=== PATIENT | female | born 1995 ===

== ENCOUNTER 2020-08-10 16:12 | Outpatient (REF) | payer OTHER, SELFPAY ==
[2020-08-10 17:29] LABS: HCG Quantitative 8 mIU/mL
== END 2020-08-10 16:13 | disposition home or self-care (01) ==
LOC: HO.LAB 16:12
PROVIDERS: PCP Physician Assistant; Visit Provider Physician Assistant
DX: N92.1 Excessive and frequent menstruation with irregular cycle (principal)
CPT/HCPCS: 84702

== ENCOUNTER 2020-10-31 08:21 | Outpatient (REF) | payer OTHER, SELFPAY ==
[2020-10-31 09:10] LABS: Glucose Urine UA NEG (NEG); Leukocyte Esterase Urine TRACE (NEG); Nitrite Urine NEG (NEG); PH 5.5 (5.0-8.0); UACC Culture Trigger YES; Urine Blood TRACE (NEG); Urine Ketones NEG (NEG); Urine Protein NEG (NEG-TRACE)
[2020-10-31 09:11] LABS: Appearance Urine CLEAR; Color Urine YELLOW; Hematocrit 38.6 % (37-47); Mean Corpuscular HGB Conc 33.7 g/dl (31.0-35.0); Mean Corpuscular Hemoglobin 30.2 pg (27.0-33.0); Mean Corpuscular Volume 89.6 fL (80-98); Mean Platelet Volume 10.8 fL (9.4-12.3); Platelet Count 277 X10*3/uL (160-400); Red Blood Count 4.31 X10*6/uL (4.20-5.50); Red Cell Distribution Width 12.5 % (11.0-16.0); White Blood Count 6.3 X10*3/uL (4.8-10.8)
[2020-10-31 09:14] LABS: Estimated Average Glucose 97 mg/dL
[2020-10-31 09:26] LABS: INTERNATIONAL NORM RATIO 1.2 (0.9-1.1); Prothrombin Time 13.9 SEC (10.8-13.0)
[2020-10-31 09:29] LABS: Bacteria Urine TRACE /LPF; RBC Urine 0-2 /HPF (0); Squamous Epithelial Cell Urine 1+ /LPF
[2020-10-31 09:34] LABS: Alanine Aminotransferase 15 U/L (0-31); Albumin Level 4.4 g/dL (3.5-5.0); Alkaline Phosphatase 46 U/L (39-117); Anion Gap 13 (12-20); Aspartate Amino Transferase 16 U/L (5-31); Bilirubin Total 0.7 mg/dL (0.0-1.0); Blood Urea Nitrogen 12 mg/dL (9-16); Calcium 9.2 mg/dL (8.4-10.2); Carbon Dioxide 22 mmol/L (22-29); Chloride 107 mmol/L (96-108); Estimated Glomerular Filt Rate > 60; Glucose Fasting 86 mg/dL (60-99); Potassium 4.3 mmol/L (3.3-5.1); Sodium 138 mmol/L (135-145); Total Protein 7.5 g/dL (6.5-8.0)
[2020-10-31 09:54] LABS: HCG Quantitative < 2 mIU/mL; TSH reflex Free T4 1.52 uIU/mL (0.32-4.0)
[2020-10-31 09:56] LABS: HBsAGNum1 0.27 S/CO (0.00-0.99); Hepatitis B Surface Antigen Negative (Negative); ~Hepatitis B Surface Antibody NONREACTIVE (Nonreactive)
[2020-10-31 10:07] LABS: HBc Num1 0.06 S/CO (0.00-0.79); Hepatitis B Core Antibody Nonreactive (Nonreactive); ~HepC Num1 0.13 S/CO (0.00-0.79); ~Hepatitis C Antibody Nonreactive (Nonreactive)
== END 2020-10-31 08:22 | disposition home or self-care (01) ==
LOC: HO.LAB 08:21
PROVIDERS: PCP Physician Assistant; Visit Provider Physician Assistant
DX: Z01.818 Encounter for other preprocedural examination (principal); R17 Unspecified jaundice; I10 Essential (primary) hypertension; R30.0 Dysuria; Z11.3 Encounter for screening for infections with a predominantly sexual mode of transmission; Z13.1 Encounter for screening for diabetes mellitus; Z13.29 Encounter for screening for other suspected endocrine disorder
CPT/HCPCS: 36415; 80053; 81001; 81003; 83036; 84443; 84702; 85027; 85610; 86704; 86706; 86803; 87086; 87147; 87340

== ENCOUNTER 2021-01-03 16:25 | Outpatient (REF) | payer OTHER, SELFPAY ==
--- NOTE | ~2021-01-03 | XR_ITS ---
EXAMINATION: XR CERVICAL SPINE CLINICAL INFORMATION: Cervicalgia COMPARISON: None TECHNIQUE: 3 views of the cervical spine were obtained. FINDINGS: There are no prevertebral soft tissue or bony abnormalities demonstrated. No compression fractures or subluxations are identified. Alignment is maintained at the atlanto-axial articulation. Straightening of the normal cervical lordosis. The disc spaces are preserved. No endplate changes are seen. The prevertebral soft tissues are normal. The lung apices are clear. XR/XR cervical spine 2V IMPRESSION: Straightening of the normal cervical lordosis which can be seen in the setting of muscle spasm. Otherwise unremarkable appearance of the cervical spine.
[2021-01-03 16:54] LABS: MANUAL DIFF FLAG NO
[2021-01-03 17:07] LABS: Basophils Percent Auto 0.1 % (0-2); Eosinophils Absolute Auto 0.1 X10*3/uL (0.0-0.4); Eosinophils Percent Auto 1.3 % (0-4); Hemoglobin 11.6 g/dl (12.0-16.0); Imm Gran Abs Auto 0.02 X10*3/uL (0.00-0.03); Imm Gran Pct Auto 0.3 % (0.0-0.4); Lymphocytes Absolute Auto 2.6 X10*3/uL (1.2-4.9); Lymphocytes Percent Auto 38.1 % (20-40); Mean Corpuscular HGB Conc 32.2 g/dl (31.0-35.0); Mean Corpuscular Hemoglobin 29.5 pg (27.0-33.0); Mean Corpuscular Volume 91.6 fL (80-98); Mean Platelet Volume 10.7 fL (9.4-12.3); Monocytes Absolute Auto 0.4 X10*3/uL (0.1-1.2); Monocytes Percent Auto 6.1 % (2-11); Neutrophils Absolute Auto 3.7 X10*3/uL (2.0-8.3); Neutrophils Percent Auto 54.1 % (45-73); Platelet Count 261 X10*3/uL (160-400); Red Blood Count 3.93 X10*6/uL (4.20-5.50); Red Cell Distribution Width 12.2 % (11.0-16.0); White Blood Count 6.9 X10*3/uL (4.8-10.8)
[2021-01-03 18:31] LABS: Anion Gap 10 (12-20); Blood Urea Nitrogen 10 mg/dL (9-16); Calcium 8.7 mg/dL (8.4-10.2); Carbon Dioxide 25 mmol/L (22-29); Chloride 107 mmol/L (96-108); Estimated Glomerular Filt Rate > 60; Glucose Random 96 mg/dL (60-115); Sodium 138 mmol/L (135-145)
== END 2021-01-03 16:26 | disposition home or self-care (01) ==
LOC: HO.XRAY 16:25
PROVIDERS: PCP Physician Assistant; Visit Provider Internal Medicine
DX: Z00.00 Encounter for general adult medical examination without abnormal findings (principal); R51.9 Headache, unspecified; M54.2 Cervicalgia
CPT/HCPCS: 36415; 72040; 80048; 85025

== ENCOUNTER 2021-01-30 | Outpatient (REF) | payer OTHER, SELFPAY | END 2021-01-30 00:01 | disposition home or self-care (01) | LOC: HO.LNP | PROVIDERS: Visit Provider Nurse Practitioner Family | DX: R30.0 Dysuria (principal) | CPT/HCPCS: 87086; 87147 ==

== ENCOUNTER 2021-03-02 11:08 | Outpatient (REF) | payer OTHER, SELFPAY ==
--- NOTE | 2021-03-02 11:13 | ECG_ITS ---
Test Reason : Z01.818 Blood Pressure : / mmHG Vent. Rate : 085 BPM Atrial Rate : 085 BPM P-R Int : 158 ms QRS Dur : 078 ms QT Int : 360 ms P-R-T Axes : 056 077 052 degrees QTc Int : 428 ms Normal sinus rhythm Normal ECG When compared with ECG of 13-OCT-2017 13:53, No significant change was found Referred By: Sotero Nesbitt Electronically Signed By:Kaushal Mott
[2021-03-02 12:41] LABS: MANUAL DIFF FLAG NO
[2021-03-02 12:58] LABS: Basophils Percent Auto 0.2 % (0-2); Eosinophils Absolute Auto 0.1 X10*3/uL (0.0-0.4); Eosinophils Percent Auto 1.4 % (0-4); Hematocrit 36.7 % (37-47); Hemoglobin 12.1 g/dl (12.0-16.0); Imm Gran Abs Auto 0.01 X10*3/uL (0.00-0.03); Imm Gran Pct Auto 0.2 % (0.0-0.4); Lymphocytes Absolute Auto 2.4 X10*3/uL (1.2-4.9); Lymphocytes Percent Auto 37.8 % (20-40); Mean Corpuscular Volume 91.1 fL (80-98); Monocytes Absolute Auto 0.4 X10*3/uL (0.1-1.2); Monocytes Percent Auto 6.1 % (2-11); Neutrophils Absolute Auto 3.5 X10*3/uL (2.0-8.3); Neutrophils Percent Auto 54.3 % (45-73); Platelet Count 280 X10*3/uL (160-400); Red Blood Count 4.03 X10*6/uL (4.20-5.50); Red Cell Distribution Width 12.2 % (11.0-16.0); White Blood Count 6.4 X10*3/uL (4.8-10.8)
[2021-03-02 13:12] LABS: Alanine Aminotransferase 12 U/L (0-31); Albumin Level 4.3 g/dL (3.5-5.0); Alkaline Phosphatase 51 U/L (39-117); Anion Gap 11 (12-20); Aspartate Amino Transferase 12 U/L (5-31); Bilirubin Total 0.5 mg/dL (0.0-1.0); Blood Urea Nitrogen 10 mg/dL (9-16); Calcium 9.5 mg/dL (8.4-10.2); Carbon Dioxide 25 mmol/L (22-29); Chloride 106 mmol/L (96-108); Estimated Glomerular Filt Rate > 60; Glucose Random 73 mg/dL (60-115); Potassium 4.4 mmol/L (3.3-5.1); Sodium 138 mmol/L (135-145); Total Protein 7.4 g/dL (6.5-8.0)
[2021-03-02 13:17] LABS: INTERNATIONAL NORM RATIO 1.1 (0.9-1.1); Prothrombin Time 13.5 SEC (10.8-13.0)
[2021-03-02 13:20] LABS: HCG Quantitative < 2 mIU/mL
[2021-03-05 08:29] LABS: HIV AB/AG Nonreactive (Nonreactive); HIV Num 1 0.07 S/CO (0.00-0.99)
== END 2021-03-02 11:09 | disposition home or self-care (01) ==
LOC: HO.LAB 11:08
PROVIDERS: PCP Physician Assistant; Visit Provider Physician Assistant
DX: Z01.818 Encounter for other preprocedural examination (principal); Z20.822 Contact with and (suspected) exposure to COVID-19; Z11.4 Encounter for screening for human immunodeficiency virus [HIV]
CPT/HCPCS: 80053; 84702; 85025; 85610; 87389; 93005; U0003; U0005

== ENCOUNTER 2021-03-12 08:53 | Outpatient (REF) | payer OTHER, SELFPAY ==
[2021-03-12 09:50] LABS: Hematocrit 36.9 % (37-47); Hemoglobin 12.2 g/dl (12.0-16.0); Mean Corpuscular HGB Conc 33.1 g/dl (31.0-35.0); Mean Corpuscular Volume 90.7 fL (80-98); Mean Platelet Volume 10.7 fL (9.4-12.3); Platelet Count 311 X10*3/uL (160-400); Red Blood Count 4.07 X10*6/uL (4.20-5.50); Red Cell Distribution Width 12.1 % (11.0-16.0); White Blood Count 6.4 X10*3/uL (4.8-10.8)
[2021-03-12 09:59] LABS: Partial Thromboplastin Time 40.1 SEC (24.1-38.0)
== END 2021-03-12 08:54 | disposition home or self-care (01) ==
LOC: HO.LAB 08:53
PROVIDERS: PCP Physician Assistant; Visit Provider Physician Assistant
DX: Z01.818 Encounter for other preprocedural examination (principal); D64.9 Anemia, unspecified
CPT/HCPCS: 36415; 85027; 85730

== ENCOUNTER 2021-04-12 19:50 | Emergency (ER) | payer OTHER, SELFPAY ==
[2021-04-12 20:10] VITALS: BP 116/62; PULSE 99; RESP 16; TEMP 37; O2SAT 99; BMI 29.5
--- NOTE | 2021-04-12 21:58 | ED.WOUNDLAC ---
HPI - Wound/Laceration General Chief Complaint: Wound/Laceration Stated Complaint: Wound check Time Seen by Provider: 04/12/21 20:57 Source: patient Mode of arrival: ambulatory Limitations: no limitations History of Present Illness HPI narrative: Patient is status post BBL 2 weeks ago complaining of slight redness at the umbilicus area since yesterday no fever no pus discharge slight painful with serous discharge Related Data Previous Rx's Medication Instructions Recorded vyocjioexx-hvjpvsssfvicp-ymypkpou 1 cap PO Q8H PRN 5 Days #15 cap 08/10/20 50 mg-300 mg-40 mg capsule hydroxyzine HCl 10 mg tablet 10 mg PO BID PRN 7 Days #14 tab 11/07/20 nitrofurantoin macrocrystal 100 mg 100 mg PO BID 7 Days #14 cap 01/30/21 capsule meloxicam 15 mg tablet 15 mg PO DAILY #30 tab 02/13/21 doxycycline hyclate 100 mg PO BID #20 cap 04/12/21 Allergies Allergy/AdvReac Type Severity Reaction Status Date / Time No Known Allergies Allergy Verified 03/06/21 09:24 Review of Systems Review of Systems: Yes all other systems are reviewed and are negative [facility] Past Medical History Surgical History H/O breast augmentation History of appendectomy Hx of knee surgery Status post excision of lipoma Family History Family History Father No problems noted. Mother No problems noted. Maternal Grandmother Diabetes Maternal Grandfather No problems noted. Paternal Grandmother Diabetes Hypertension Stroke Paternal Grandfather No problems noted. Social History Social History Alcohol intake: former Patient Tobacco Use Status: Never used Tobacco Second Hand Smoke Exposure: No Use of substances other than those prescribed or required for medical reasons: No Advance Directives: No Patient : No Physical Exam Vital Signs: Vital Signs: Last Vital Signs Temp 98.6 F 04/12/21 20:10 Pulse 99 04/12/21 20:10 Resp 16 04/12/21 20:10 BP 116/62 04/12/21 20:10 Pulse Ox 99 04/12/21 20:10 Body Mass Index 29.5 Const: General: healthy appearing and comfortable Orientation/consciousness: patient oriented x3 Resp: Effort & Inspection: normal respiratory effort Auscultation: clear to auscultation bilaterally Cardio: Palpation: normal PMI Rate: regular rate Rhythm: regular rhythm Heart sounds: S1 normal heart sound present and S2 normal heart sound present Skin: Full body images: 1. Slight redness mild tenderness at the umbilicus area the site of surgery no pus discharge slight serous discharge Neuro: General: patient oriented x3 Discharge Plan Discharge Clinical Impression: Cellulitis Qualifiers: Site of cellulitis: trunk Site of cellulitis of trunk: umbilicus Qualified Code(s): L03.316 - Cellulitis of umbilicus Patient Disposition: Home, Self-Care Instructions: Cellulitis (ED) Additional Instructions: Take antibiotic as advised. Local care as advised. Report to PCP/ED if worsening of the redness or swelling Prescriptions: New doxycycline hyclate 100 mg capsule 100 mg PO BID Qty: 20 RF: 0 No Action meloxicam 15 mg tablet 15 mg PO DAILY Qty: 30 RF: 0 nitrofurantoin macrocrystal 100 mg capsule 100 mg PO BID 7 Days Qty: 14 RF: 0 nqeztugwco-tihrrxmzqqvyr-mulw [Fioricet] 50-300-40 mg capsule 1 cap PO Q8H PRN (Reason: pain) 5 Days Qty: 15 RF: 0 hydroxyzine HCl 10 mg tablet 10 mg PO BID PRN (Reason: nausea and vomiting) 7 Days Qty: 14 RF: 0 Interventions: ED Discharge Assessment Last Done: 04/12/21 22:10 Discharge Date/Time: 04/12/21 22:12
== END 2021-04-12 22:12 | disposition home or self-care (01) ==
PROVIDERS: Emergency Provider Internal Medicine; PCP Physician Assistant
DX: L03.316 Cellulitis of umbilicus (principal)
CPT/HCPCS: 99283; 99284

== ENCOUNTER 2021-06-04 19:34 | Emergency (ER) | payer OTHER, SELFPAY ==
[2021-06-04 19:46] VITALS: BP 100/61; PULSE 87; RESP 16; TEMP 36.1; O2SAT 100; BMI 23.0
[2021-06-04 20:05] LABS: Glucose Urine UA NEG (NEG); Leukocyte Esterase Urine NEG (NEG); Nitrite Urine NEG (NEG); PH 7.5 (5.0-8.0); Specific Gravity - Urine 1.015 (1.005-1.025); Urine Blood NEG (NEG); Urine Ketones NEG (NEG); Urine Protein NEG (NEG-TRACE)
[2021-06-04 20:06] LABS: Color Urine YELLOW
[2021-06-04 20:07] LABS: Appearance Urine CLEAR; UPreg QC Valid YES; Urine Pregnancy POSITIVE (NEGATIVE)
[2021-06-04 22:47] VITALS: BP 91/52; PULSE 84; RESP 20; TEMP 36.8; O2SAT 100
--- NOTE | 2021-06-04 23:38 | ED.FEMALEGU ---
HPI - Female Genitourinary General Chief complaint: Urogenital-Female Stated complaint: uti? Time Seen by Provider: 06/04/21 22:00 Source: patient Mode of arrival: ambulatory Limitations: no limitations History of Present Illness HPI Narrative: Patient comes emergency room complaining of dysuria for 5 days, redness and swelling to the labia, dysuria, dyspareunia. Patient states that she is not concerned about having an STD. Patient states that her menstrual period is 1 week late Related Data Previous Rx's Medication Instructions Recorded zfvtdyomgz-gqzxwozzadjhp-fgulqmew 1 cap PO Q8H PRN 5 Days #15 cap 08/10/20 50 mg-300 mg-40 mg capsule (Fioricet) hydroxyzine HCl 10 mg tablet 10 mg PO BID PRN 7 Days #14 tab 11/07/20 nitrofurantoin macrocrystal 100 mg 100 mg PO BID 7 Days #14 cap 01/30/21 capsule meloxicam 15 mg tablet 15 mg PO DAILY #30 tab 02/13/21 doxycycline hyclate 100 mg capsule 100 mg PO BID #20 cap 04/12/21 vitamin no.115-iron 29 1 tab PO DAILY #30 tab 06/04/21 mg-folic acid 1 mg chewable tablet ( 19) Allergies Allergy/AdvReac Type Severity Reaction Status Date / Time No Known Allergies Allergy Verified 06/04/21 19:51 Review of Systems Review of Systems: Constitutional : No Weight loss, No Fever, No Chills, No Night Sweats, No Fatigue, No Malaise ENT/Mouth : No Hearing loss, No Ear Pain, No Nasal Congestion, No Sinus Pain, No Hoarseness, No sore throat, No Rhinorrhea, No Swallowing Difficulty Eyes: No Eye Pain, No Swelling, No Redness, No Foreign Body, No Discharge, No Vision Changes Cardiovascular : No Chest Pain, No SOB, No Dyspnea on Exertion, No Orthopnea, No Edema, No Palpitations Respiratory : No Cough, No Sputum, No Wheezing, No Smoke Exposure, No Dyspnea Gastrointestinal : No Nausea, No Vomiting, No Diarrhea, No Constipation, No abdominal Pain, No Hematochezia, No Melena Genitourinary : no irregular bleeding, No Dysuria, No Urinary Frequency, No Hematuria, No Urinary Incontinence, No Urgency, No Flank Pain, No Urinary Flow Changes, No Hesitancy Musculoskeletal : No joint pain, No Myalgias, No Joint Swelling Skin : No Skin Lesions, No rash Neuro : No Weakness, No Numbness, No Paresthesias, No Loss of Consciousness, No Dizziness, No Headache Psych : No Anxiety/Panic, No Depression, No SI/HI/AH/VH, No Social Issues, Heme/Lymph: No Bruising, No Bleeding,No Lymphadenopathy Endocrine : No Polyuria, No Polydipsia, No Temperature Intolerance [facility] Past Medical History Surgical History H/O breast augmentation History of appendectomy Hx of knee surgery Status post excision of lipoma Family History Family History Father No problems noted. Mother No problems noted. Maternal Grandmother Diabetes Maternal Grandfather No problems noted. Paternal Grandmother Diabetes Hypertension Stroke Paternal Grandfather No problems noted. Social History Social History Alcohol intake: former Patient Tobacco Use Status: Never used Tobacco Second Hand Smoke Exposure: No Advance Directives: No Advance Directives Information Provided: No Physical Exam Vital Signs: Vital Signs: Last Vital Signs Temp 98.2 F 06/04/21 22:47 Pulse 84 06/04/21 22:47 Resp 20 06/04/21 22:47 BP 91/52 L 06/04/21 22:47 Pulse Ox 100 06/04/21 22:47 Body Mass Index 23.0 Const: Other: Appearance: Alert. Oriented X3. No acute distress. Eyes: Pupils equal, round and reactive to light. ENT: Pharynx normal. Neck: Normal inspection. Neck supple. No lymph nodes noted. No crepitus CVS: Normal heart rate and rhythm. Pulses normal. Normal S1 and S2 Respiratory: No respiratory distress. Breath sounds normal. No Wheezing. No rales Abdomen: Soft and nontender. No rigidity. No distention. : Normal genitalia, cervix closed, no discharge Skin: Skin warm and dry. Normal skin color. Normal skin turgor. Extremities: No lower extremity edema. No lower extremity edema. No Lacerations. No Rash Neuro: Oriented X 3. No motor deficit. No sensory deficit. Moving all extermities. No slurred speech. Course Course Course Narrative: I discussed the physical exam with the patient, no clear reason why the patient may have dysuria/dyspareunia. Cultures were obtained. I discussed with the patient and her that the urine test is positive for . He will follow-up with their OBGYN at [facility] - Female Genitourinary Lab Data Labs: Lab Results 06/04/21 06/04/21 Range/Units 19:57 19:57 Urine Color YELLOW Urine Appearance CLEAR Urine pH 7.5 (5.0-8.0) Ur Specific [place] 1.015 (1.005-1.025) Urine Protein NEG (NEG-TRACE) MG/DL Urine Glucose (UA) NEG (NEG) MG/DL Urine Ketones NEG (NEG) MG/DL Urine Blood NEG (NEG) Urine Nitrite NEG (NEG) Ur Leukocyte Esterase NEG (NEG) Urine Test POSITIVE H (NEGATIVE) Discharge Plan Discharge Clinical Impression: Dysuria Qualifiers: Weeks of gestation: less than 8 weeks Qualified Code(s): Z3A.01 - Less than 8 weeks gestation of Patient Disposition: Home, Self-Care Instructions: Dysuria (ED) Additional Instructions: Please follow-up with your primary care physician tomorrow. If you have any worsening or new symptoms, please return to the emergency room or call 911 Prescriptions: New 19 29 mg iron- 1 mg tablet,chewable 1 tab PO DAILY Qty: 30 RF: 0 No Action meloxicam 15 mg tablet 15 mg PO DAILY Qty: 30 RF: 0 doxycycline hyclate 100 mg capsule 100 mg PO BID Qty: 20 RF: 0 nitrofurantoin macrocrystal 100 mg capsule 100 mg PO BID 7 Days Qty: 14 RF: 0 vqhgpnevbg-sdjqyvtybndrx-eqxb [Fioricet] 50-300-40 mg capsule 1 cap PO Q8H PRN (Reason: pain) 5 Days Qty: 15 RF: 0 hydroxyzine HCl 10 mg tablet 10 mg PO BID PRN (Reason: nausea and vomiting) 7 Days Qty: 14 RF: 0
[2021-06-05 05:30] LABS: CT PCR NOT DETECTED (Not Detect.); NG PCR NOT DETECTED (Not Detect.)
[2021-06-06 09:42] LABS: BV Int Neg Control Negative (Negative); BV Int Pos Control Positive (Positive)
== END 2021-06-05 00:13 | disposition home or self-care (01) ==
PROVIDERS: Emergency Provider Emergency Medicine; PCP Physician Assistant
DX: R30.0 Dysuria (principal); Z33.1 Pregnant state, incidental
CPT/HCPCS: 81003; 81025; 87480; 87491; 87510; 87591; 87660; 99283; 99284

== ENCOUNTER 2021-06-18 14:25 | Emergency (ER) | payer OTHER, SELFPAY | END 2021-06-18 17:13 | disposition left against medical advice (07) | PROVIDERS: Emergency Provider Emergency Medicine Emergency Medical Services; PCP Physician Assistant | DX: O26.91 Pregnancy related conditions, unspecified, first trimester (principal); Z3A.01 Less than 8 weeks gestation of pregnancy ==

== ENCOUNTER 2021-06-26 00:05 | Emergency (ER) | payer OTHER, SELFPAY ==
--- NOTE | ~2021-06-26 | US_ITS ---
EXAMINATION: US OBSTETRICAL ULTRASOUND CLINICAL INFORMATION: Vaginal bleeding. 7 weeks . COMPARISON: None. LMP: 05/02/2021. Gestational age by maternal dates is 7 weeks 6 days. Estimated date of delivery by maternal dates is 02/06/2022. TECHNIQUE: Transabdominal pelvic ultrasound performed. FINDINGS: There is a single intrauterine gestational sac with visible yolk sac, embryo/fetus, and cardiac activity. There is no significant subchorionic hemorrhage or hematoma. HR: 152 beats per minute. CRL (crown rump length): 1.04 cm (7 weeks 1 day +/- 4 days). ROBBIE (estimated date of delivery): 02/11/2022 +/- 4 days. MATERNAL ADNEXA: The right maternal ovary measures 3.6 x 2.3 x 2.6 cm. Corpus luteal cyst noted. The left maternal ovary measures 2.6 x 1.6 x 1.6 cm. There is no significant maternal adnexal mass. No maternal pelvic ascites. US/US OB <= 14 weeks fetus IMPRESSION: 1. Single intrauterine gestation with ultrasound gestational age of 7 weeks 1 day +/- 4 days. 2. Estimated date of delivery is 02/11/2022 +/- 4 days. 3. No maternal adnexal mass or pelvic ascites.
[2021-06-26 00:19] VITALS: BP 115/48; PULSE 75; RESP 16; TEMP 36.8; O2SAT 98; BMI 26.6
--- NOTE | 2021-06-26 00:42 | ED.FEMALEGU ---
HPI - Female Genitourinary General Chief complaint: Vaginal Bleeding Stated complaint: 7 weeks /Vag bleeding Time Seen by Provider: 06/26/21 00:37 Source: patient Mode of arrival: ambulatory Limitations: no limitations History of Present Illness HPI Narrative: Patient is 7 weeks 2 para 1 noticed spotting after intercourse bright red blood small amount with lower abdominal cramps Related Data Previous Rx's Medication Instructions Recorded vqzjmytagp-riegdvpyvaldx-cqlxoftc 1 cap PO Q8H PRN 5 Days #15 cap 08/10/20 50 mg-300 mg-40 mg capsule (Fioricet) hydroxyzine HCl 10 mg tablet 10 mg PO BID PRN 7 Days #14 tab 11/07/20 nitrofurantoin macrocrystal 100 mg 100 mg PO BID 7 Days #14 cap 01/30/21 capsule meloxicam 15 mg tablet 15 mg PO DAILY #30 tab 02/13/21 doxycycline hyclate 100 mg capsule 100 mg PO BID #20 cap 04/12/21 vitamin no.115-iron 29 1 tab PO DAILY #30 tab 06/04/21 mg-folic acid 1 mg chewable tablet ( 19) Allergies Allergy/AdvReac Type Severity Reaction Status Date / Time No Known Allergies Allergy Verified 06/04/21 19:51 Review of Systems Review of Systems: Yes all other systems are reviewed and are negative [facility] Past Medical History Surgical History H/O breast augmentation History of appendectomy Hx of knee surgery Status post excision of lipoma Family History Family History Father No problems noted. Mother No problems noted. Maternal Grandmother Diabetes Maternal Grandfather No problems noted. Paternal Grandmother Diabetes Hypertension Stroke Paternal Grandfather No problems noted. Social History Social History Alcohol intake: former Patient Tobacco Use Status: Never used Tobacco Second Hand Smoke Exposure: No Use of substances other than those prescribed or required for medical reasons: No Advance Directives: No Patient : Yes Physical Exam Vital Signs: Vital Signs: Last Vital Signs Temp 98.2 F 06/26/21 00:19 Pulse 75 06/26/21 00:19 Resp 16 06/26/21 00:19 BP 115/48 L 06/26/21 00:19 Pulse Ox 98 06/26/21 00:19 Body Mass Index 26.6 Appearance: Alert. Oriented X3. No acute distress. ENT: Pharynx normal. Oral Mucosa moist Neck: Normal inspection. Neck supple. CVS: Normal heart rate and rhythm. Pulses normal. Respiratory: No respiratory distress. Equal air entry bilateral, Abdomen: Soft and nontender. Bowel sounds are present, no mass palpable, no CVA tenderness Course Course Course Narrative: Healthy IUP 7 weeks 1 day with 152 heartbeats, discharge patient home [facility] - Female Genitourinary Lab Data Attestation: I reviewed the patient's lab results. Labs: Lab Results 06/26/21 Range/Units 01:09 Beta HCG, Quant 13162 mIU/mL Discharge Plan Discharge Clinical Impression: First-trimester bleeding Patient Disposition: Home, Self-Care Instructions: Subchorionic Hemorrhage (ED) Additional Instructions: Rest at home Report to the ER if increased amount of bleeding Your ultrasound showed normal 7 weeks 1 day Prescriptions: No Action meloxicam 15 mg tablet 15 mg PO DAILY Qty: 30 RF: 0 doxycycline hyclate 100 mg capsule 100 mg PO BID Qty: 20 RF: 0 19 29 mg iron- 1 mg tablet,chewable 1 tab PO DAILY Qty: 30 RF: 0 nitrofurantoin macrocrystal 100 mg capsule 100 mg PO BID 7 Days Qty: 14 RF: 0 aaibtndfya-ivpdgsrlkqlsk-yszf [Fioricet] 50-300-40 mg capsule 1 cap PO Q8H PRN (Reason: pain) 5 Days Qty: 15 RF: 0 hydroxyzine HCl 10 mg tablet 10 mg PO BID PRN (Reason: nausea and vomiting) 7 Days Qty: 14 RF: 0 Stand Alone Forms: Work/School Release Interventions: ED Discharge Assessment Last Done: 06/26/21 02:51 Discharge Date/Time: 06/26/21 02:52
--- NOTE | 2021-06-26 01:13 | PC.NURSE ---
pt was seen last week for abd pain. Today pt report have vaginal bleeding after sex. pt reports having small amount of blood. no heavy bleeding.
--- NOTE | 2021-06-26 01:30 | PC.NURSE ---
Pt report no significant amount of bleeding just strands of blood while voiding after having intercourse.
[2021-06-26 02:03] LABS: HCG Quantitative 46146 mIU/mL
== END 2021-06-26 02:52 | disposition home or self-care (01) ==
PROVIDERS: Emergency Provider Internal Medicine; PCP Physician Assistant
DX: O20.9 Hemorrhage in early pregnancy, unspecified (principal); Z3A.01 Less than 8 weeks gestation of pregnancy; Z79.899 Other long term (current) drug therapy
CPT/HCPCS: 36415; 76801; 84702; 99284

== ENCOUNTER 2022-11-03 15:55 | Emergency (ER) | payer OTHER, SELFPAY ==
--- NOTE | ~2022-11-03 | CT_ITS ---
EXAMINATION: CT ABDOMEN AND PELVIS WITHOUT CONTRAST CLINICAL INFORMATION: Left flank pain radiating to left lower quadrant COMPARISON: 11/10/2013 TECHNIQUE: Multidetector volumetric imaging was performed from the superior aspect of the liver through the pubic symphysis. Sagittal and coronal reformatted images were obtained on the technologist's workstation. This CT examination was performed using dose optimization techniques as appropriate, variously including the following: *Automated exposure control *Adjustment of mA and/or kV according to patient size (this includes techniques or standardized protocols for targeted exams where dose is matched to indication/reason for exam; i.e. extremities or head) *Use of iterative reconstruction technique DLP: 607 mGy-cm FINDINGS: LUNG BASES: The visualized lung bases are unremarkable. LIVER, GALLBLADDER, AND BILIARY TREE: The liver is normal in size, shape, and attenuation. No focal hepatic lesion or biliary ductal dilatation is present. The gallbladder is contracted with no evidence of radiopaque gallstones, gallbladder wall thickening, or obvious pericholecystic inflammatory changes. PANCREAS: Unremarkable. SPLEEN: Unremarkable. ADRENAL GLANDS: Unremarkable. KIDNEYS AND URETERS: Punctate 1 mm calculi are evident within calyces in the interpolar regions of the left kidney and right kidney. No larger calculi are identified. The kidneys are normal in size, shape, and attenuation. No hydronephrosis or hydroureter. No ureteral calculi. No perinephric stranding. BLADDER: Unremarkable. GASTROINTESTINAL TRACT: Stomach, small bowel, and colon are normal in caliber. No bowel wall thickening or surrounding inflammatory changes. No intraperitoneal free air. Surgical dimas are evident in the right lower quadrant, possibly due to prior appendectomy. The appendix is identified. There is a small amount of free fluid in the pelvis measures 10 Hounsfield units, likely physiologic. ABDOMINAL WALL: No significant hernia is appreciated. LYMPH NODES: Normal. VASCULAR: Unremarkable. PELVIC VISCERA: The uterus and adnexa are unremarkable. OSSEOUS STRUCTURES: No acute osseous findings. There is 9 fusion of the inferior articulating processes of L3 with the remainder of the articular pillars, corresponding a developmental variation. CT/CT abdomen pelvis wo IV con IMPRESSION: 1. No acute intra-abdominal or intrapelvic abnormalities. 2. Punctate 1 mm nonobstructing renal calculi. No evidence of obstructive uropathy. 3. Small amount of free fluid in the pelvis, likely physiologic. Fleischner guidelines were followed.
[2022-11-03 16:05] VITALS: BP 113/53; PULSE 86; RESP 18; TEMP 36.8; O2SAT 100; BMI 26.9
--- NOTE | 2022-11-03 16:05 | ED_ITS ---
HPI - Abdominal Pain General Chief Complaint: Urogenital-Female <MURALI Contreras - Last Filed: 11/03/22 16:09> Stated Complaint: passed kidney stone yesterday/ pain <MURALI Contreras - Last Filed: 11/03/22 16:09> Time Seen by Provider: 11/03/22 16:57 <MURALI Contreras - Last Filed: 11/03/22 16:09> Source: patient <Zhen Laureano MD - Last Filed: 11/03/22 18:44> Mode of arrival: ambulatory <Zhen Laureano MD - Last Filed: 11/03/22 18:44> Limitations: no limitations <Zhen Laureano MD - Last Filed: 11/03/22 18:44> History of Present Illness HPI narrative: Patient no history of kidney stone noticed pain in left flank areas since yesterday evening and noticed small amount of stone coming out from vagina while taking shower no nausea no vomiting no fever no chills patient also has dysuria no frequency no hematuria no history of kidney stones in the family patient never had similar pain in the past patient already had the labs done pr ior to my evaluation which showed normal CBC urine negative for blood showed trace leuko esterase no bacteria patient had CT scan of the abdomen prior to my evaluation also <Zhen Laureano MD - Last Filed: 11/03/22 18:44> Related Data Home Medications: Previous Rx's Medication Instructions Recorded vitamin no.115-iron 29 1 tab PO DAILY #30 tabs 06/04/21 mg-folic acid 1 mg chewable tablet ( 19) amoxicillin 500 mg tablet 500 mg PO BID 5 days #10 tabs 10/02/21 <MURALI Contreras - Last Filed: 11/03/22 16:09> Allergies/Adverse Reactions: Allergies Allergy/AdvReac Type Severity Reaction Status Date / Time No Known Allergies Allergy Verified 11/03/22 16:05 <MURALI Contreras - Last Filed: 11/03/22 16:09> Review of Systems Review of Systems Yes all other systems are reviewed and are negative <Zhen Laureano MD - Last Filed: 11/03/22 18:44> [facility] Past Medical History Surgical History: Surgical History H/O breast augmentation History of appendectomy Hx of knee surgery Status post excision of lipoma <MURALI Contreras - Last Filed: 11/03/22 16:09> Family History Family History: Family History Father No problems noted. Mother No problems noted. Maternal Grandmother Diabetes Maternal Grandfather No problems noted. Paternal Grandmother Diabetes Hypertension Stroke Paternal Grandfather No problems noted. <MURALI Contreras - Last Filed: 11/03/22 16:09> Social History Social History: Social History Alcohol intake: former Patient Tobacco Use Status: Never used Tobacco Second Hand Smoke Exposure: No Advance Directives: No Advance Directives Information Provided: No <MURALI Contreras - Last Filed: 11/03/22 16:09> Physical Exam ED Vital Signs: Vital Signs - 24 hr 11/03/22 16:05 Temperature 98.2 F Pulse Rate 86 Respiratory Rate 18 Blood Pressure 113/53 L Pulse Oximetry 100 Oxygen Delivery Method Room Air BMI result Body Mass Index 26.9 <MURALI Contreras - Last Filed: 11/03/22 16:09> Vital Signs - 24 hr 11/03/22 16:05 Temperature 98.2 F Pulse Rate 86 Respiratory Rate 18 Blood Pressure 113/53 L Pulse Oximetry 100 Oxygen Delivery Method Room Air BMI result Body Mass Index 26.9 <Zhen Laureano MD - Last Filed: 11/03/22 18:44> Appearance: Alert. Oriented X3. No acute distress. ENT: Pharynx normal. Oral Mucosa moist Neck: Normal inspection. Neck supple. CVS: Normal heart rate and rhythm. Pulses normal. Respiratory: No respiratory distress. Equal air entry bilateral, Abdomen: Soft and nontender. Bowel sounds are present, no mass palpable, mild left CVA tenderness Skin: Skin warm and dry. Normal skin color. Normal skin turgor. Extremities: No lower extremity edema. No calf tenderness Neuro: Oriented X 3. <Zhen Laureano MD - Last Filed: 11/03/22 18:44> Course Course Course Narrative: RME--27yo F w/no sig PMHx c/o L flank pain radiating to LLQ since yesterday w/assoc dysuria. Reports passed a rock while in the shower last night which worsened pain. Denies N/V, heamturia VSS, nontoxic appearing Labs, UA, , CTAP ordered in triage <MURALI Contreras - Last Filed: 11/03/22 16:09> Medical Decision Making Medical Decision Making MDM Narrative: Patient's CT scan negative for any obstructive uropathy UA negative di scharge patient home patient is comfortable without any significant pain <Debra Laureano MD - Last Filed: 11/03/22 18:44> Lab Data [facility] Lab Attestation statement: I reviewed the patient's lab results. <Zhen Laureano MD - Last Filed: 11/03/22 18:44> Result Diagrams: 11/03/22 16:41 11/03/22 16:41 <MURALI Contreras - Last Filed: 11/03/22 16:09> Labs: Lab Results 11/03/22 11/03/22 11/03/22 Range/Units 16:38 16:39 16:41 WBC 7.1 (4.8-10.8) X10*3/uL RBC 4.07 L (4.20-5.50) X10*6/uL Hgb 11.0 L (12.0-16.0) g/dl Hct 34.4 L (37.0-47.0) % MCV 84.5 (80.0-98.0) fL MCH 27.0 (27.0-33.0) pg MCHC 32.0 (31.0-35.0) g/dl RDW 15.9 (11.0-16.0) % Plt Count 303 (160-400) X10*3/uL MPV 10.9 (9.4-12.3) fL Immature Gran % (Auto) 0.3 (0.0-0.4) % Neut % (Auto) 52.7 (45-73) % Lymph % (Auto) 37.9 (20-40) % Branch % (Auto) 6.1 (2-11) % Eos % (Auto) 2.7 (0-4) % Baso % (Auto) 0.3 (0-2) % Lymph # (Auto) 2.7 (1.2-4.9) X10*3/uL Branch # (Auto) 0.4 (0.1-1.2) X10*3/uL Eos # (Auto) 0.2 (0.0-0.4) X10*3/uL Baso # (Auto) 0.0 (0.0-0.2) X10*3/uL Abs Immat Gran (auto) 0.02 (0.00-0.03) X10*3/uL Absolute Neuts (auto) 3.7 (2.0-8.3) x10*3/uL Absolute Nucleated RBC 0.000 (0.0-0.012) X10*3/uL Nucleated RBC % (auto) 0.0 (0.0-0.2) /100WBC Sodium (135-145) mmol/L Potassium (3.3-5.1) mmol/L Chloride (96-108) mmol/L Carbon Dioxide (22-29) mmol/L Anion Gap (12-20) BUN (9-16) mg/dL Creatinine (0.5-1.4) mg/dL Estim Creat Clear Calc Estimated GFR Random Glucose (60-115) mg/dL Calcium (8.4-10.2) mg/dL Magnesium (1.6-2.6) mg/dL Total Bilirubin (0.0-1.0) mg/dL Direct Bilirubin (0.0-0.5) mg/dL AST (5-31) U/L ALT (0-31) U/L Alkaline Phosphatase (39-117) U/L Total Protein (6.5-8.0) g/dL Albumin (3.5-5.0) g/dL Lipase (8-78) U/L Urine Color Yellow Urine Appearance Clear Urine pH 7.5 (5.0-9.0) Ur Specific [place] 1.025 (1.005-1.025) Urine Protein Negative (Neg-Trace) mg/dL Urine Glucose (UA) Negative (Negative) mg/dL Urine Ketones Negative (Negative) mg/dL Urine Blood Negative (Negative) Urine Nitrite Negative (Negative) Ur Leukocyte Esterase Small (1+) H (Negative) Urine RBC 0-2 (0-2) /HPF Urine WBC 0-5 (0-5) /HPF Ur Squamous Epith Cells 3-5 (0-2) /HPF Urine Bacteria Trace (None Seen) Hyaline Casts 0-2 (0-2) /LPF Urine Test NEGATIVE (NEGATIVE) 11/03/22 Range/Units 16:41 WBC (4.8-10.8) X10*3/uL RBC (4.20-5.50) X10*6/uL Hgb (12.0-16.0) g/dl Hct (37.0-47.0) % MCV (80.0-98.0) fL MCH (27.0-33.0) pg MCHC (31.0-35.0) g/dl RDW (11.0-16.0) % Plt Count (160-400) X10*3/uL MPV (9.4-12.3) fL Immature Gran % (Auto) (0.0-0.4) % Neut % (Auto) (45-73) % Lymph % (Auto) (20-40) % Branch % (Auto) (2-11) % Eos % (Auto) (0-4) % Baso % (Auto) (0-2) % Lymph # (Auto) (1.2-4.9) X10*3/uL Branch # (Auto) (0.1-1.2) X10*3/uL Eos # (Auto) (0.0-0.4) X10*3/uL Baso # (Auto) (0.0-0.2) X10*3/uL Abs Immat Gran (auto) (0.00-0.03) X10*3/uL Absolute Neuts (auto) (2.0-8.3) x10*3/uL Absolute Nucleated RBC (0.0-0.012) X10*3/uL Nucleated RBC % (auto) (0.0-0.2) /100WBC Sodium 139 (135-145) mmol/L Potassium 4.0 (3.3-5.1) mmol/L Chloride 109 H (96-108) mmol/L Carbon Dioxide 23 (22-29) mmol/L Anion Gap 11 L (12-20) BUN 15 (9-16) mg/dL Creatinine 0.63 (0.5-1.4) mg/dL Estim Creat Clear Calc 126.1 Estimated GFR > 60 Random Glucose 76 (60-115) mg/dL Calcium 8.8 D (8.4-10.2) mg/dL Magnesium 1.9 (1.6-2.6) mg/dL Total Bilirubin 0.3 (0.0-1.0) mg/dL Direct Bilirubin < 0.2 (0.0-0.5) mg/dL AST 12 (5-31) U/L ALT 11 (0-31) U/L Alkaline Phosphatase 55 (39-117) U/L Total Protein 7.0 (6.5-8.0) g/dL Albumin 4.1 (3.5-5.0) g/dL Lipase 23 (8-78) U/L Urine Color Urine Appearance Urine pH (5.0-9.0) Ur Specific [place] (1.005-1.025) Urine Protein (Neg-Trace) mg/dL Urine Glucose (UA) (Negative) mg/dL Urine Ketones (Negative) mg/dL Urine Blood (Negative) Urine Nitrite (Negative) Ur Leukocyte Esterase (Negative) Urine RBC (0-2) /HPF Urine WBC (0-5) /HPF Ur Squamous Epith Cells (0-2) /HPF Urine Bacteria (None Seen) Hyaline Casts (0-2) /LPF Urine Test (NEGATIVE) <MURALI Contreras - Last Filed: 11/03/22 16:09> Lab Results 11/03/22 11/03/22 11/03/22 Range/Units 16:38 16:39 16:41 WBC 7.1 (4.8-10.8) X10*3/uL RBC 4.07 L (4.20-5.50) X10*6/uL Hgb 11.0 L (12.0-16.0) g/dl Hct 34.4 L (37.0-47.0) % MCV 84.5 (80.0-98.0) fL MCH 27.0 (27.0-33.0) pg MCHC 32.0 (31.0-35.0) g/dl RDW 15.9 (11.0-16.0) % Plt Count 303 (160-400) X10*3/uL MPV 10.9 (9.4-12.3) fL Immature Gran % (Auto) 0.3 (0.0-0.4) % Neut % (Auto) 52.7 (45-73) % Lymph % (Auto) 37.9 (20-40) % Branch % (Auto) 6.1 (2-11) % Eos % (Auto) 2.7 (0-4) % Baso % (Auto) 0.3 (0-2) % Lymph # (Auto) 2.7 (1.2-4.9) X10*3/uL Branch # (Auto) 0.4 (0.1-1.2) X10*3/uL Eos # (Auto) 0.2 (0.0-0.4) X10*3/uL Baso # (Auto) 0.0 (0.0-0.2) X10*3/uL Abs Immat Gran (auto) 0.02 (0.00-0.03) X10*3/uL Absolute Neuts (auto) 3.7 (2.0-8.3) x10*3/uL Absolute Nucleated RBC 0.000 (0.0-0.012) X10*3/uL Nucleated RBC % (auto) 0.0 (0.0-0.2) /100WBC Sodium (135-145) mmol/L Potassium (3.3-5.1) mmol/L Chloride (96-108) mmol/L Carbon Dioxide (22-29) mmol/L Anion Gap (12-20) BUN (9-16) mg/dL Creatinine (0.5-1.4) mg/dL Estim Creat Clear Calc Estimated GFR Random Glucose (60-115) mg/dL Calcium (8.4-10.2) mg/dL Magnesium (1.6-2.6) mg/dL Total Bilirubin (0.0-1.0) mg/dL Direct Bilirubin (0.0-0.5) mg/dL AST (5-31) U/L ALT (0-31) U/L Alkaline Phosphatase (39-117) U/L Total Protein (6.5-8.0) g/dL Albumin (3.5-5.0) g/dL Lipase (8-78) U/L Urine Color Yellow Urine Appearance Clear Urine pH 7.5 (5.0-9.0) Ur Specific [place] 1.025 (1.005-1.025) Urine Protein Negative (Neg-Trace) mg/dL Urine Glucose (UA) Negative (Negative) mg/dL Urine Ketones Negative (Negative) mg/dL Urine Blood Negative (Negative) Urine Nitrite Negative (Negative) Ur Leukocyte Esterase Small (1+) H (Negative) Urine RBC 0-2 (0-2) /HPF Urine WBC 0-5 (0-5) /HPF Ur Squamous Epith Cells 3-5 (0-2) /HPF Urine Bacteria Trace (None Seen) Hyaline Casts 0-2 (0-2) /LPF Urine Test NEGATIVE (NEGATIVE) 11/03/22 Range/Units 16:41 WBC (4.8-10.8) X10*3/uL RBC (4.20-5.50) X10*6/uL Hgb (12.0-16.0) g/dl Hct (37.0-47.0) % MCV (80.0-98.0) fL MCH (27.0-33.0) pg MCHC (31.0-35.0) g/dl RDW (11.0-16.0) % Plt Count (160-400) X10*3/uL MPV (9.4-12.3) fL Immature Gran % (Auto) (0.0-0.4) % Neut % (Auto) (45-73) % Lymph % (Auto) (20-40) % Branch % (Auto) (2-11) % Eos % (Auto) (0-4) % Baso % (Auto) (0-2) % Lymph # (Auto) (1.2-4.9) X10*3/uL Branch # (Auto) (0.1-1.2) X10*3/uL Eos # (Auto) (0.0-0.4) X10*3/uL Baso # (Auto) (0.0-0.2) X10*3/uL Abs Immat Gran (auto) (0.00-0.03) X10*3/uL Absolute Neuts (auto) (2.0-8.3) x10*3/uL Absolute Nucleated RBC (0.0-0.012) X10*3/uL Nucleated RBC % (auto) (0.0-0.2) /100WBC Sodium 139 (135-145) mmol/L Potassium 4.0 (3.3-5.1) mmol/L Chloride 109 H (96-108) mmol/L Carbon Dioxide 23 (22-29) mmol/L Anion Gap 11 L (12-20) BUN 15 (9-16) mg/dL Creatinine 0.63 (0.5-1.4) mg/dL Estim Creat Clear Calc 126.1 Estimated GFR > 60 Random Glucose 76 (60-115) mg/dL Calcium 8.8 D (8.4-10.2) mg/dL Magnesium 1.9 (1.6-2.6) mg/dL Total Bilirubin 0.3 (0.0-1.0) mg/dL Direct Bilirubin < 0.2 (0.0-0.5) mg/dL AST 12 (5-31) U/L ALT 11 (0-31) U/L Alkaline Phosphatase 55 (39-117) U/L Total Protein 7.0 (6.5-8.0) g/dL Albumin 4.1 (3.5-5.0) g/dL Lipase 23 (8-78) U/L Urine Color Urine Appearance Urine pH (5.0-9.0) Ur Specific [place] (1.005-1.025) Urine Protein (Neg-Trace) mg/dL Urine Glucose (UA) (Negative) mg/dL Urine Ketones (Negative) mg/dL Urine Blood (Negative) Urine Nitrite (Negative) Ur Leukocyte Esterase (Negative) Urine RBC (0-2) /HPF Urine WBC (0-5) /HPF Ur Squamous Epith Cells (0-2) /HPF Urine Bacteria (None Seen) Hyaline Casts (0-2) /LPF Urine Test (NEGATIVE) <Zhen Laureano MD - Last Filed: 11/03/22 18:44> Radiology Impression Discussion of test interpretation with radiology: I have reviewed the radiologist's reading. <Zhen Laureano MD - Last Filed: 11/03/22 18:44> Radiologist Impression: CT/CT abdomen pelvis wo IV con IMPRESSION: 1.? No acute intra-abdominal or intrapelvic abnormalities. 2.? Punctate 1 mm nonobstructing renal calculi. No evidence of obstructive uropathy. 3.? Small amount of free fluid in the pelvis, likely physiologic. ? <Zhen Laureano MD - Last Filed: 11/03/22 18:44> Medications Administered Discontinued Medications Generic Name Dose Route Start Last Admin Trade Name Freq PRN Reason Stop Dose Admin Iohexol 100 ml 11/03/22 17:01 11/03/22 17:01 Iohexol 350 Mg/Ml 100 Ml Infus..Btl IV 11/03/22 17:02 85 ml ONCE ONE Administration <MURALI Contreras - Last Filed: 11/03/22 16:09> Medications Administered Discontinued Medications Generic Name Dose Route Start Last Admin Trade Name Freq PRN Reason Stop Dose Admin Iohexol 100 ml 11/03/22 17:01 11/03/22 17:01 Iohexol 350 Mg/Ml 100 Ml Infus..Btl IV 11/03/22 17:02 85 ml ONCE ONE Administration <Zhen Laureano MD - Last Filed: 11/03/22 18:44> Discharge Plan Discharge Clinical Impression: Back pain <MURALI Contreras - Last Filed: 11/03/22 16:09> Patient Disposition: Home, Self-Care <MURALI Contreras - Last Filed: 11/03/22 16:09> Instructions: Back Pain (ED) <MURALI Contreras Last Filed: 11/03/22 16:09> Additional Instructions: Take ibuprofen for pain Your CT scan did not show any stone in the ureteric tube Drink plenty of fluids <MURALI Contreras Last Filed: 11/03/22 16:09> Prescriptions: No Action 19 29 mg iron- 1 mg tablet,chewable 1 tab PO DAILY Qty: 30 0RF amoxicillin 500 mg tablet 500 mg PO BID 5 Days Qty: 10 0RF <MURALI Contreras Last Filed: 11/03/22 16:09>
[2022-11-03 16:45] LABS: MANUAL DIFF FLAG NO
[2022-11-03 16:47] LABS: Basophils Percent Auto 0.3 % (0-2); Eosinophils Absolute Auto 0.2 X10*3/uL (0.0-0.4); Eosinophils Percent Auto 2.7 % (0-4); Hematocrit 34.4 % (37.0-47.0); Imm Gran Abs Auto 0.02 X10*3/uL (0.00-0.03); Imm Gran Pct Auto 0.3 % (0.0-0.4); Lymphocytes Absolute Auto 2.7 X10*3/uL (1.2-4.9); Lymphocytes Percent Auto 37.9 % (20-40); Mean Corpuscular Volume 84.5 fL (80.0-98.0); Mean Platelet Volume 10.9 fL (9.4-12.3); Monocytes Absolute Auto 0.4 X10*3/uL (0.1-1.2); Monocytes Percent Auto 6.1 % (2-11); Neutrophils Absolute Auto 3.7 x10*3/uL (2.0-8.3); Neutrophils Percent Auto 52.7 % (45-73); Platelet Count 303 X10*3/uL (160-400); Red Blood Count 4.07 X10*6/uL (4.20-5.50); Red Cell Distribution Width 15.9 % (11.0-16.0); White Blood Count 7.1 X10*3/uL (4.8-10.8)
[2022-11-03 16:47] LABS: Appearance Urine Clear; Color Urine Yellow; Glucose Urine UA Negative (Negative); Leukocyte Esterase Urine Small (1+) (Negative); Nitrite Urine Negative (Negative); PH 7.5 (5.0-9.0); Specific Gravity - Urine 1.025 (1.005-1.025); UMIC TRIGGER UACC YES; Urine Blood Negative (Negative); Urine Ketones Negative (Negative); Urine Protein Negative (Neg-Trace)
[2022-11-03 16:48] LABS: UPreg QC Valid YES; Urine Pregnancy NEGATIVE (NEGATIVE)
[2022-11-03 17:01] LABS: Alanine Aminotransferase 11 U/L (0-31); Albumin Level 4.1 g/dL (3.5-5.0); Alkaline Phosphatase 55 U/L (39-117); Anion Gap 11 (12-20); Aspartate Amino Transferase 12 U/L (5-31); Bilirubin Direct < 0.2 mg/dL (0.0-0.5); Bilirubin Total 0.3 mg/dL (0.0-1.0); Blood Urea Nitrogen 15 mg/dL (9-16); Calcium 8.8 mg/dL (8.4-10.2); Carbon Dioxide 23 mmol/L (22-29); Chloride 109 mmol/L (96-108); Creatinine Clr Calc Pharmacy 126.1; Estimated Glomerular Filt Rate > 60; Glucose Random 76 mg/dL (60-115); Lipase 23 U/L (8-78); Magnesium 1.9 mg/dL (1.6-2.6); Sodium 139 mmol/L (135-145)
[2022-11-03] MEDS: iohexoL 350 MG/ML 100 ML INFUS..BTL IV (17:01)
[2022-11-03 17:06] LABS: Bacteria Urine Trace (None Seen); Hyaline Casts Urine 0-2 /LPF (0-2); RBC Urine 0-2 /HPF (0-2); UACC Culture Trigger YES; WBC Urine 0-5 /HPF (0-5)
== END 2022-11-03 18:56 | disposition home or self-care (01) ==
PROVIDERS: Physician Assistant; Emergency Provider Internal Medicine; PCP Physician Assistant
DX: R30.0 Dysuria (principal); M54.50 Low back pain, unspecified; R10.9 Unspecified abdominal pain; Z79.899 Other long term (current) drug therapy; Z87.442 Personal history of urinary calculi
CPT/HCPCS: 36415; 74176; 80048; 80076; 81001; 81025; 83690; 83735; 85025; 87086; 99282; 99283; Q9967

== ENCOUNTER 2024-01-12 14:00 | Outpatient (AMB) | payer OTHER, SELFPAY ==
[2024-01-12 14:07] VITALS: BP 102/60; PULSE 100; O2SAT 99; BMI 27.8
--- NOTE | 2024-01-12 14:07 | A.OFFPC_ITS ---
Vital Signs 3 01/12/24 14:07 Height 5 ft 3 in Weight 157 lb BMI 27.8 BP 102/60 Blood Pressure Location Lt brachial Position Sitting Pulse 100 Pulse Source Pulse Oximeter Pulse Oximetry (%) 99 Oxygen Delivery Method Room Air Intake Visit Reasons: snoring/ mole removal Intake Note: Patient is here to request two referrals: one for a sleep study due to snoring persisting for the past two months, and the second for dermatology for the removal of a mole around the neck area. They have been experiencing increased anxiety and weight gain recently. Mandate Retail Service Merchandiser Required: No Accompanied by: Self / Same As Patient Allergies No Known Allergies Allergy (Verified 01/12/24 14:26) Medication List - Last Reconciled 01/12/24 by Sotero Nesbitt PA-C No Known Home Meds Tobacco use date assessed: 01/12/24 Dental Screening Dental Screen Date: 01/12/24 Did you have a dental visit in the last 12 months?: Yes Did you have a dental problem in the last 6 months where you did not have access to dental care?: No Was dental information given to patient?: Patient has dentist HPI snoring/ mole removal 2 HPI0 Details Patient is a 28 old female here today for a follow-up visit. Patient has a past medical history significant for generalized anxiety disorder, major depressive disorder. Concern--> reports she has been told she snores loudly. She otherwise denies any headaches, daytime somnolence. She is interested in being evaluated for obstructive sleep apnea. Also has skin tags on her neck that she would like removed as they have become bothersome often getting caught on clothing. Anxiety: Has been dealing with more anxiety as of late. Reports she often has social anxiety as of late. She reports her anxiety came on over the last 6 months. She has been eating more due to her anxiety.. She is interested in being set up with a mental health therapist for in-person therapy. She is interested in as needed medication for anxiety PFSH Surgical History H/O breast augmentation Status post excision of lipoma Hx of knee surgery History of appendectomy Family History Father Hypothyroidism Mother No problems noted. Maternal Grandmother Diabetes Maternal Grandfather No problems noted. Paternal Grandmother Diabetes Hypertension Stroke Paternal Grandfather No problems noted. Brother Osteosarcoma Social History Housing: Apartment Alcohol intake: current Alcohol intake frequency: a few times a month Alcohol type: hard liquor Patient Tobacco Use Status: Never used Tobacco e-Cigarette/Vaping Use: Currently Using Second Hand Smoke Exposure: No service: No Current occupational status: employed Current occupation: [employer] Cognitive needs: No Hearing needs: No Vision needs: No Questionnaire PHQ-9 Over the last 2 weeks, how often have you been bothered by any of the following problems? 1. Little interest or pleasure in doing things: nearly every day 2. Feeling down, depressed, or hopeless: more than half the days 3. Trouble falling or staying asleep, or sleeping too much: nearly every day 4. Feeling tired or having little energy: nearly every day 5. Poor appetite or overeating: nearly every day 6. Feeling bad about yourself - or that you are a failure or have let yourself or your family down: not at all 7. Trouble concentrating on things, such as reading the newspaper or watching television: nearly every day 8. Moving or speaking so slowly that other people could have noticed. Or the opposite - being so fidgety or restless that you have been moving around a lot more than usual: not at all 9. Thoughts that you would be better off or of hurting yourself in some way: several days Total score: 18 Depression Screening Interpretation: Positive Depression Screening Follow-up: Existing condition Depression Screening Done: Yes 57520 - PHQ-9 Billing: Yes Source: Developed by Drs. Sameer Reeder, Steff Manriquez, Jakob Carlson and colleagues, with an educational roxanne from [employer]. Thrive Questionnaire Date Thrive assessed: 01/12/24 I am a: Patient What is your living situation today?: I have a steady place to live Within the past 12 months, did the food you bought not last and you didn't have the money to get more?: Never true Within the past 12 months, did you worry whether your food would run out before you got money to buy more?: Never true Do you have trouble paying for medicines?: No Do you have trouble getting transportation to medical appointments?: No Do you have trouble paying your heating and electricity bill?: No Do you have trouble taking care of your child, family member or friend?: No Do you have trouble with day-to-day activities such as bathing, preparing meals, shopping, managing finances, etc.?: No Are you currently unemployed and looking for a job?: No Are you interested in more education?: No Please select the resources that you would like help with: None Currently or been in a relationship where the following occur: no concerns reported THRIVE Score: 0 AUDIT C Alcohol Use Questionnaire (AUDIT-C) 1. How often do you have a drink containing alcohol?: 4 or more times a week 2. How many drinks containing alcohol do you have on a typical day when you are drinking?: 5 or 6 3. How often do you have six or more drinks on one occasion?: Weekly Total Score: 9 TIM-7 AMB Questionnaire TIM-7 Date TIM - 7 assessed: 01/12/24 Feeling nervous, anxious, or on edge: 3 = Nearly every day Not being able to stop or control worryin = Nearly every day Worrying too much about different things: 3 = Nearly every day Trouble relaxin = Nearly every day Being so restless that it is hard to sit still: 0 = Not at all Becoming easily annoyed or irritable: 3 = Nearly every day Feeling afraid as if something awful might happen: 3 = Nearly every day Total TIM-7 score (0-4 normal; 5-9 mild; 10-14 moderate; 15-21 severe): 18 Source: Developed by Drs. Sameer Reeder, Steff Manriquez, Jakob Carlson and colleagues, with an educational roxanne from [employer]. TIM-7 Assessment Billing TIM-7 Assessment Tool: TIM-7 Assessment 63724 Review of Systems Const Denies headache(s) Eyes Denies loss of vision ENT Denies vertigo, Denies dizziness, Denies headache(s) and Denies sore throat Card Denies chest pain, Denies leg edema and Denies lightheadedness Resp Denies cough, Denies hemoptysis and Denies wheezing GI Denies abdominal pain, Denies melena, Denies constipation, Denies diarrhea and Denies vomiting Denies urinary frequency, Denies dysuria and Denies urinary urgency Musc Denies arthralgias, Denies joint swelling, Denies numbness and Denies tingling Neuro Denies Abnormal speech present, Denies behavioral changes, Denies vertigo, Denies dizziness, Denies headache(s), Denies loss of vision, Denies memory loss, Denies numbness and Denies tingling Psych Denies anxiety, Denies behavioral changes, Denies depression, Denies memory loss and Denies panic attacks Chandler/Lymph Denies easy bleeding and Denies easy bruising Aller/Immun Denies wheezing Physical exam (Primary Care) Vital Signs: Last Vital Signs Pulse 100 01/12/24 14:07 BP 102/60 01/12/24 14:07 Pulse Ox 99 01/12/24 14:07 Oxygen Delivery Method Room Air 01/12/24 14:07 BMI result Body Mass Index 27.8 Tobacco/Smoking Status: Tobacco use Status Tobacco use date assessed 01/12/24 01/12/24 14:25 Patient Tobacco Use Status Never used Tobacco 01/12/24 14:11 e-Cigarette/Vaping Use Currently Using 01/12/24 14:25 PHQ-9: PHQ-9 Score PHQ-9: Total score 18 01/12/24 14:45 Depression Screening Interpretation: Positive Depression Screening Follow-up: Existing condition Thrive Assessment: Date of Thrive Assessment Date Thrive assessed 01/12/24 01/12/24 14:25 Currently or been in a relationship where the following occur: no concerns reported Const General: healthy appearing, no acute distress, alert and awake Nutritional Appearance: well nourished Orientation/consciousness: oriented to person, oriented to place and oriented to time HENMT Ears: TM's normal bilaterally General nose exam: Normal nasal mucous membranes and turbinates present Eyes Conjunctivae: conjunctivae normal Sclerae: sclerae normal Pupils: Equal, round and reactive pupils present Neck Neck: Yes no lymphadenopathy and Yes no JVD Thyroid: Thyroid normal Carotids: no bruits Neck images: 2 1. MULTIPLE HYPERPIGMENTED SKIN TAG LESIONS OVER THE LATERAL ASPECT OF HER NECK Resp Effort & Inspection: normal respiratory effort and not tachypneic Auscultation: no crackles, no rales, no rhonchi and no wheezes Cardio Rate: regular rate Rhythm: regular rhythm Heart sounds: no murmurs and normal S1 and S2 GI Palpation (GI): Soft to palpation, nontender, no hepatomegaly and no splenomegaly Auscultation: normal bowel sounds Skin General skin exam: no rashes or lesions noted and dry skin Neuro General: oriented to person, oriented to place and oriented to time Cranial nerves: Yes Equal, round and reactive pupils present Speech: No Abnormal speech present Gait exam (Neuro): Normal gait present Motor exam (neuro): no tremor noted Extrem Right upper extremity: full ROM Left upper extremity: full ROM Right lower extremity: full ROM; no edema Left lower extremity: full ROM; no edema Psych Mental Status: mental status grossly normal Speech and movement: Normal speech and movement present Affect: normal affect Attitude: cooperative Thought process: Normal thought process present Assessment and Plan Assessment & Plan (1) TIM (generalized anxiety disorder): Code(s): F41.1 - Generalized anxiety disorder Plan: Patient's TIM-7 score positive anxiety which has been existing condition for her. She is interested in in-person cognitive behavioral therapy. She is also interested in as needed medication for anxiety. She has not interested in any daily medication for anxiety. (2) NGA (obstructive sleep apnea): Code(s): G47.33 - Obstructive sleep apnea (adult) (pediatric) Plan: Patient reports she has been told she snores very loudly. She otherwise has low risk for obstructive sleep apnea. She would like to be evaluated for obstructive sleep apnea. (3) Skin tag: Code(s): L91.8 - Other hypertrophic disorders of the skin Plan: Has bothersome skin tags on neck. She would like Dermatology for evaluation and removal of the skin tests (4) MDD (major depressive disorder), recurrent episode, moderate: Code(s): F33.1 - Major depressive disorder, recurrent, moderate Plan: Patient's PHQ-9 score positive for depression which has been existing condition for her. Again not interested in daily medication for her mental health. She is interested in setting up appointment with cognitive behavioral therapist. Orders: Orders 2 RT home sleep study 01/12/24 G47.33 - Obstructive sleep apnea (adult) (pediatric) Referrals 2 Dermatology Referral L91.8 - Other hypertrophic disorders of the skin Counseling Referral F41.1 - Generalized anxiety disorder Medications: New 2 hydroxyzine HCl 10 mg PO BEDTIME PRN 14 tabs 0RF anxiety 14 days F41.1 - Generalized anxiety disorder, F41.9 - Anxiety disorder, unspecified Patient Instructions: Goals: Controlled anxiety, lose weight , be set up with mental health therapist Barriers: Uncontrolled anxious symptoms Coding Level of Care Code Est Pt Level 4 (21025) Diagnoses TIM (generalized anxiety disorder) F41.1 NGA (obstructive sleep apnea) G47.33 Skin tag L91.8 MDD (major depressive disorder), recurrent episode, moderate F33.1 Additional Codes TIM-7 Assessment Billing - TIM-7 Assessment Tool: TIM-7 Assessment [id number] ([id number])
== END 2024-01-12 14:43 | disposition home or self-care (01) ==
PROVIDERS: PCP Physician Assistant; Visit Provider Physician Assistant
DX: G47.33 Obstructive sleep apnea (adult) (pediatric) (principal); L91.8 Other hypertrophic disorders of the skin; F41.1 Generalized anxiety disorder; F33.1 Major depressive disorder, recurrent, moderate
CPT/HCPCS: 99214

== ENCOUNTER 2024-04-12 10:09 | Outpatient (AMB) | payer OTHER, SELFPAY ==
--- NOTE | 2024-04-12 10:10 | A.OFFPC_ITS ---
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 She presents to the ER for acute left-sided facial numbness, extremity stiffness and chest pain. Workup included CTA head and neck, brain MRI and echocardiogram which were all essentially normal. She does report having issues with sleep, only sleeping 3 or 4 hours per night. Also reports having daily headaches and migraines to which she has been using ibuprofen for. She admits to drinking daily monster energy drinks though has recently stopped as she feels this may have been the cause of some of the above symptoms. At this point it is unclear would caused her symptoms. Differential diagnosis includes dehydration, heat intolerance, seizure disorder, stress and anxiety. [facility] Surgical History H/O breast augmentation Status post excision of lipoma Hx of knee surgery History of appendectomy Family History Father Hypothyroidism Mother No problems noted. Maternal Grandmother Diabetes Maternal Grandfather No problems noted. Paternal Grandmother Diabetes Hypertension Stroke Paternal Grandfather No problems noted. Brother Osteosarcoma Social History Housing: Apartment Alcohol intake: current Alcohol intake frequency: a few times a month Alcohol type: hard liquor Patient Tobacco Use Status: Never used Tobacco e-Cigarette/Vaping Use: Currently Using Second Hand Smoke Exposure: No service: No Current occupational status: employed Current occupation: [employer] Cognitive needs: No Hearing needs: No Vision needs: No Questionnaire Thrive Questionnaire Date Thrive assessed: 01/12/24 TIM-7 AMB Questionnaire TIM-7 Date TIM - 7 assessed: 01/12/24 Source: Developed by Drs. Sameer Reeder, Steff Manriquez, Jakob Carlson and colleagues, with an educational roxanne from [employer]. Review of Systems Const Reports headache(s) Eyes Denies loss of vision ENT Denies vertigo, Denies dizziness, Reports headache(s) and Denies sore throat Card Denies chest pain, Denies leg edema and Denies lightheadedness Resp Denies cough, Denies hemoptysis and Denies wheezing GI Denies abdominal pain, Denies melena, Denies constipation, Denies diarrhea and Denies vomiting Denies urinary frequency, Denies dysuria and Denies urinary urgency Musc Denies arthralgias, Denies joint swelling, Denies numbness and Denies tingling Neuro Denies Abnormal speech present, Denies behavioral changes, Denies vertigo, Denies dizziness, Reports headache(s), Denies loss of vision, Denies memory loss , Denies numbness and Denies tingling Psych Denies anxiety, Denies behavioral changes, Denies depression, Denies memory loss and Denies panic attacks Chandler/Lymph Denies easy bleeding and Denies easy bruising Aller/Immun Denies wheezing Physical exam (Primary Care) Vital Signs: Last Vital Signs Pulse 92 04/12/24 10:14 BP 100/60 04/12/24 10:14 Pulse Ox 10 L 04/12/24 10:14 Oxygen Delivery Method Room Air 04/12/24 10:14 BMI result Body Mass Index 28.0 Tobacco/Smoking Status: Tobacco use Status Tobacco use date assessed 01/12/24 04/12/24 10:10 Patient Tobacco Use Status Never used Tobacco 04/12/24 10:10 e-Cigarette/Vaping Use Currently Using 04/12/24 10:10 Thrive Assessment: Date of Thrive Assessment Date Thrive assessed 01/12/24 04/12/24 10:10 Const General: healthy appearing, no acute distress, alert and awake Nutritional Appearance: well nourished Orientation/consciousness: oriented to person, oriented to place and oriented to time HENMT Ears: TM's normal bilaterally General nose exam: Normal nasal mucous membranes and turbinates present Eyes Conjunctivae: conjunctivae normal Sclerae: sclerae normal Pupils: Equal, round and reactive pupils present Neck Neck: Yes no lymphadenopathy and Yes no JVD Thyroid: Thyroid normal Carotids: no bruits Resp Effort & Inspection: normal respiratory effort and not tachypneic Auscultation: no crackles, no rales, no rhonchi and no wheezes Cardio Rate: regular rate Rhythm: regular rhythm Heart sounds: no murmurs and normal S1 and S2 GI Palpation (GI): Soft to palpation, nontender, no hepatomegaly and no splenomegaly Auscultation: normal bowel sounds Skin General skin exam: no rashes or lesions noted and dry skin Neuro General: oriented to person, oriented to place and oriented to time Cranial nerves: Yes Equal, round and reactive pupils present Speech: No Abnormal speech present Gait exam (Neuro): Normal gait present Motor exam (neuro): no tremor noted Extrem Right upper extremity: full ROM Left upper extremity: full ROM Right lower extremity: full ROM; no edema Left lower extremity: full ROM; no edema Psych Mental Status: mental status grossly normal Speech and movement: Normal speech and movement present Affect: normal affect Attitude: cooperative Thought process: Normal thought process present Assessment and Plan Assessment & Plan (1) Seizure-like activity: Code(s): R56.9 - Unspecified convulsions Plan: As per HPI patient experienced extremity stiffness, left-sided facial numbness ect. Extensive workup done at [facility] all within normal limits. Does report having seizure-like activity while in [place]. Will send for EEG to evaluate for any epileptic activity. (2) Migraines: Code(s): G43.909 - Migraine, unspecified, not intractable, without status migrainosus Qualifiers: Intractability: not intractable Migraine type: unspecified Status migrainosus presence: without status migrainosus Qualified Code(s): G43.909 - Migraine, unspecified, not intractable, without status migrainosus Plan: Does report having a daily headache/migraine. Will supply patient with sumatriptan to use on a p.r.n. basis. Jerelie currently functioning as a single parent. She does report drinking monster energy drinks on a daily basis though has recently stopped. Likely related to lack of sleep and stress in her life. Orders: Orders EEG electroencephalogram 04/12/24 R56.9 - Unspecified convulsions Referrals General Surgery Referral L91.8 - Other hypertrophic disorders of the skin Medications: New sumatriptan succinate take 1 tab at onset of headache; if no relief may repeat 1 tab after at least 2 hrs; max = 4 tabs/24 hr PO 9 tabs 0RF 30 days G43.909 - Migraine, unspecified, not intractable, without status migrainosus ibuprofen 600 mg PO Q8H PRN 45 tabs 0RF pain 15 days G43.909 - Migraine, unspecified, not intractable, without status migrainosus Refilled hydroxyzine HCl 10 mg PO BEDTIME PRN 14 tabs 0RF anxiety 14 days F41.1 - Generalized anxiety disorder, F41.9 - Anxiety disorder, unspecified Coding Level of Care Code Est Pt Level 4 (24342) Diagnoses Seizure-like activity R56.9 Migraine without status migrainosus, not intractable, unspecified migraine type G43.909 Intractability: not intractable Migraine type: unspecified Status migrainosus presence: without status migrainosus
[2024-04-12 10:14] VITALS: BP 100/60; PULSE 92; O2SAT 10; BMI 28.0
== END 2024-04-12 10:42 | disposition home or self-care (01) ==
PROVIDERS: PCP Physician Assistant; Visit Provider Physician Assistant
DX: R56.9 Unspecified convulsions (principal); G43.909 Migraine, unspecified, not intractable, without status migrainosus
CPT/HCPCS: 99214

== ENCOUNTER 2024-04-27 14:42 | Outpatient (AMB) | payer OTHER, SELFPAY ==
--- NOTE | 2024-04-27 14:56 | A.OFFVIS_ITS ---
Vital Signs 04/27/24 15:02 Height 5 ft 3 in Weight 165 lb 4 oz BMI 29.3 BP 120/62 Blood Pressure Location Lt brachial Position Sitting Pulse 80 Intake Visit Reasons: Wart-like growths along neck Intake Note: Patient is seen in office for evaluation of skin lesions of the neck. Pt c/o: onset 2 yrs, admits to increase in quantity, denies discharge, redness, or other concerns, had some removed in the past and re appeared after pregnacy Line Service Person Required: No Accompanied by: Self / Same As Patient Allergies No Known Allergies Allergy (Verified 04/27/24 15:03) Medication List - Last Reconciled 04/27/24 by Giovanni Conn MD fluconazole mg PO hydroxyzine HCl 10 mg PO BEDTIME PRN 14 days ibuprofen 600 mg PO Q8H PRN 15 days sumatriptan succinate take 1 tab at onset of headache; if no relief may repeat 1 tab after at least 2 hrs; max = 4 tabs/24 hr PO 30 days HPI Comments Details: Patient presents with multiple skin tags involving her anterior and bilateral neck area. She would like to have them removed. She has had these before excised. No other issues or complaints dimension. Chart was reviewed and patient evaluated [facility] Surgical History H/O breast augmentation Status post excision of lipoma Hx of knee surgery History of appendectomy Family History Father Hypothyroidism Mother No problems noted. Maternal Grandmother Diabetes Maternal Grandfather No problems noted. Paternal Grandmother Diabetes Hypertension Stroke Paternal Grandfather No problems noted. Brother Osteosarcoma Social History Housing: Apartment Alcohol intake: current Alcohol intake frequency: a few times a month Alcohol type: hard liquor Patient Tobacco Use Status: Never used Tobacco e-Cigarette/Vaping Use: Currently Using Second Hand Smoke Exposure: No service: No Current occupational status: employed Current occupation: [employer] Cognitive needs: No Hearing needs: No Vision needs: No Physical Exam Vital Signs: Last Vital Signs Pulse 80 04/27/24 15:02 BP 120/62 04/27/24 15:02 BMI result Body Mass Index 29.3 HEENT Other: Innumerable skin tags involving the anterior and bilateral neck. Office Procedures Excision Details: Risks, benefits, alternatives of excision of multiple skin tags of the neck area reviewed the patient included but not limited to bleeding, infection, recurrence, numbness, pain, scarring the patient wished to proceed. All questions answered. Patient underwent appropriate positioning and Betadine prep in the total of 26 skin tags were uneventfully excised. Wounds were secured hemostasis and bacitracin applied. Patient tolerated procedure well. Procedure code (CPT) selection complete Assessment & Plan Assessment & Plan (1) Skin tags, multiple acquired: Code(s): L91.8 - Other hypertrophic disorders of the skin Category: Surgical Plan: Patient has been given local instructions including bacitracin each day for next few days and will otherwise follow-up p.r.n.. Orders: Orders AMB Excision Today L91.8 - Other hypertrophic disorders of the skin Coding Level of Care Code New Pt Level 4 (39014) Diagnoses Skin tags, multiple acquired L91.8
[2024-04-27 15:02] VITALS: BP 120/62; PULSE 80; BMI 29.3
== END 2024-04-27 16:02 | disposition home or self-care (01) ==
PROVIDERS: PCP Physician Assistant; Visit Provider Surgery
DX: L91.8 Other hypertrophic disorders of the skin (principal); L98.8 Other specified disorders of the skin and subcutaneous tissue
CPT/HCPCS: 11200; 11201; 99204

== ENCOUNTER → 2024-04-27 14:42 | Outpatient (BNVA) | payer OTHER, SELFPAY | PROVIDERS: PCP Physician Assistant; Visit Provider Surgery | DX: L91.8 Other hypertrophic disorders of the skin (principal) | CPT/HCPCS: 11200; 11201; 99202 ==

== ENCOUNTER 2024-05-12 13:00 | Outpatient (REF) | payer OTHER, SELFPAY ==
--- NOTE | 2024-05-12 13:02 | EEG_ITS ---
FINDINGS: The waking background activity consists of a moderate voltage of 9 hertz posterior alpha frequency that is seen symmetrically and attenuates well with eye opening while low voltage fast frequencies predominate anteriorly. Photic stimulation and hyperventilation are without activation. No focal, lateralizing, or paroxysmal discharges are seen. IMPRESSION: This waking EEG is within normal limits. MD MICHAEL Leblanc/STONEY / [id number]
== END 2024-05-12 13:01 | disposition home or self-care (01) ==
LOC: HO.NEURO 13:00
PROVIDERS: PCP Physician Assistant; Visit Provider Physician Assistant
DX: R56.9 Unspecified convulsions (principal)
CPT/HCPCS: 95816

== ENCOUNTER 2024-08-06 09:47 | Emergency (ER) | payer OTHER, SELFPAY ==
--- NOTE | ~2024-08-06 | US_ITS ---
EXAMINATION: Ultrasound pelvis. CLINICAL INFORMATION: Right-sided pain. Bleeding, post end of May. COMPARISON: No priors. TECHNIQUE: Real-time transabdominal and transvaginal pelvic ultrasound performed using grayscale and color Doppler technique. FINDINGS: The uterus measures 8 x 5 x 5 cm with the normal morphology and echotexture. Uterus is in anteversion flexion position. The endometrial stripe measures 4 mm in maximal thickness. No intrauterine gestational sac or focal abnormalities. The endocervical canal is closed. There are nabothian cysts in the cervix. There is a anechoic less than 6 mm abnormality in the endocervical canal without a pole or a jokes sac. Right ovary measures 5 x 4 x 3 cm. Volume is 26 cc. There are scattered follicles. There is flow on color Doppler interrogation. There is a 1.2 cm isoechoic abnormality. Left ovary measures 4 x 2 x 2 cm. Volume is 7 cc. There is normal flow on color Doppler interrogation. No gross free fluid in the cul-de-sac. US/US pelvic ovarian doppler IMPRESSION: Questionable retained products of conception in the endocervical canal. Recommend direct inspection. No ovarian torsion. Electronically signed by: Ki Winter MD 08/06/2024 01:16 PM EST
--- NOTE | ~2024-08-06 | US_ITS ---
EXAMINATION: Ultrasound pelvis. CLINICAL INFORMATION: Right-sided pain. Bleeding, post end of May. COMPARISON: No priors. TECHNIQUE: Real-time transabdominal and transvaginal pelvic ultrasound performed using grayscale and color Doppler technique. FINDINGS: The uterus measures 8 x 5 x 5 cm with the normal morphology and echotexture. Uterus is in anteversion flexion position. The endometrial stripe measures 4 mm in maximal thickness. No intrauterine gestational sac or focal abnormalities. The endocervical canal is closed. There are nabothian cysts in the cervix. There is a anechoic less than 6 mm abnormality in the endocervical canal without a pole or a jokes sac. Right ovary measures 5 x 4 x 3 cm. Volume is 26 cc. There are scattered follicles. There is flow on color Doppler interrogation. There is a 1.2 cm isoechoic abnormality. Left ovary measures 4 x 2 x 2 cm. Volume is 7 cc. There is normal flow on color Doppler interrogation. No gross free fluid in the cul-de-sac. US/US pelvic and transvaginal IMPRESSION: Questionable retained products of conception in the endocervical canal. Recommend direct inspection. No ovarian torsion. Electronically signed by: Ki Winter MD 08/06/2024 01:16 PM EST
[2024-08-06 10:04] VITALS: BP 127/71; PULSE 92; RESP 18; TEMP 36.6; O2SAT 100; BMI 28.7
--- NOTE | 2024-08-06 10:30 | ED_ITS ---
HPI - Female Genitourinary General Chief complaint: Abdominal Pain Stated complaint: L side abd pain, dizzy, n/v Time Seen by Provider: 08/06/24 10:13 Source: patient and old records reviewed Mode of arrival: ambulatory Limitations: no limitations History of Present Illness ED Provider: KARINA BAKER Narrative: 28 yo female with anemia s/p chemical end of May through her OBGYN at [facility]. Since then she continues to have pelvic pain in middle and R side with persistent vaginal bleeding, dyspareunia, intermittent clots. She notes she had serial hcgs with her OBGYN and was told it was normal and that she just needs to monitor her symptoms. She states she is worried something else is happening like retained POC. She never had follow up ultrasound per her reports. She states she is starting to feel more weak and dizzy. She just had negative STI panel as well 3 weeks ago. She has been NPO since midnight. MD elicited complaint: vaginal bleeding and pelvic pain Pertinent past history: other (s/p chemical end of May) Onset (ago): month(s) (1.5) Location of symptoms: suprapubic Severity: moderate Quality of pain: cramping Consistency: intermittent Vaginal discharge: none Vaginal bleeding: moderate, bright red and clots Exacerbating factors: intercourse Relieving factors: none Associated symptoms: weakness Treatment prior to arrival: none Related Data Home Medications ?Medication ?Instructions ?Recorded ?Confirmed fluconazole 150 mg tablet mg PO 04/27/24 04/27/24 Previous Rx's ?Medication ?Instructions ?Recorded hydroxyzine HCl 10 mg tablet 10 mg PO BEDTIME PRN anxiety 14 04/12/24 days #14 tabs ibuprofen 600 mg tablet 600 mg PO Q8H PRN pain 15 days #45 04/12/24 tabs sumatriptan succinate 25 mg tablet See Rx Instructions PO .COMPLEX 30 07/19/24 days #9 tabs Allergies Allergy/AdvReac Type Severity Reaction Status Date / Time No Known Allergies Allergy Verified 08/06/24 10:09 Review of Systems 2 Review of Systems: Constitutional : No Fever, No Chills ENT/Mouth : No sore throat, No Rhinorrhea Eyes: No Eye Pain, No Redness Cardiovascular : No Chest Pain, No SOB Respiratory : No Cough, No Sputum, No Wheezing Gastrointestinal : positive Nausea, No Vomiting, No Diarrhea, positive abdominal pain, Genitourinary : positive irregular bleeding, No Dysuria, No Urinary Frequency, positive pelvic pain Musculoskeletal : No Myalgias Skin : No rash Neuro : No Weakness, No Headache Psych : No Anxiety/Panic, No Depression Heme/Lymph: No bruising, No Lymphadenopathy Endocrine : No Polyuria, No Polydipsia All other systems reviewed and are negative PMFSH Past Medical History Attestation statement: The following information was validated with the patient. Source: old records reviewed Medical History Frequent headaches MDD (major depressive disorder), recurrent episode, moderate TIM (generalized anxiety disorder) NGA (obstructive sleep apnea) Seizure-like activity Migraines Surgical History H/O breast augmentation Status post excision of lipoma Hx of knee surgery History of appendectomy Family History Family History Father Hypothyroidism Mother No problems noted. Maternal Grandmother Diabetes Maternal Grandfather No problems noted. Paternal Grandmother Diabetes Hypertension Stroke Paternal Grandfather No problems noted. Brother Osteosarcoma Social History Social History Housing: Apartment Alcohol intake: current Alcohol intake frequency: a few times a month Alcohol type: hard liquor Patient Tobacco Use Status: Never used Tobacco Smoked in Last 30 Days: No e-Cigarette/Vaping Use: Currently Using Second Hand Smoke Exposure: No Advance Directives: No Advance Directives Information Provided: Yes Do you have a plan to hurt others: No Plan Patient : No service: No Current occupational status: employed Current occupation: Car Insurance Cognitive needs: No Hearing needs: No Vision needs: No Physical Exam 2 Vital Signs: Vital Signs: Last Vital Signs Temp 97.9 F 08/06/24 10:04 Pulse 84 08/06/24 14:00 Resp 16 08/06/24 14:00 BP 102/52 L 08/06/24 14:00 Pulse Ox 100 08/06/24 14:00 O2 Del Method Room Air 08/06/24 14:00 BMI result Body Mass Index 28.7 Appearance: Alert. Oriented X3. No acute distress. Eyes: Pupils equal, round and reactive to light. ENT: Pharynx normal. Neck: Normal inspection. Neck supple. CVS: Normal heart rate and rhythm. Pulses normal. Respiratory: No respiratory distress. Breath sounds normal. Abdomen: Soft and very mild ttp in lower abdomen. Skin: Skin warm and dry. Normal skin color. Normal skin turgor. Extremities: No lower extremity edema. No calf ttp Neuro: Oriented X 3. No motor deficit. No sensory deficit. Medical Decision Making Medical Decision Making [facility] Narrative: 28 yo female who underwent chemical at the end of May presents with persistent pelvic pain, heavy bleeding with clots since the and now weakness and intermittent dizziness. She reports she had serial hcg and was told it was normal after the procedure. She has not had US since the bleeding continued. At this time labs, hcg and US to evaluate for cyst/retained POC. Differential Diagnosis Differential Diagnoses: The differential diagnosis associated with the presentation includes DUB, anemia, retained POC Admission/Observation Consideration of admission/observation: Escalation of care including admission/observation considered stable for outpatient follow up by Dr. Valencia Consult Healthcare Provider Management of the patient was discussed with: Bisque Kiln Placer (OBGYN) Dr. Valencia message 120pm will come down to evaluate the patient Lab Data [facility] Lab Attestation statement: I reviewed the patient's lab results. 08/06/24 10:46 08/06/24 10:46 Labs: Lab Results 08/06/24 08/06/24 Range/Units 10:46 13:37 WBC 8.2 (4.8-10.8) X10*3/uL RBC 3.95 L (4.20-5.50) X10*6/uL Hgb 11.8 L (12.0-16.0) g/dl Hct 34.8 L (37.0-47.0) % MCV 88.1 (80.0-98.0) fL MCH 29.9 (27.0-33.0) pg MCHC 33.9 (31.0-35.0) g/dl RDW 12.9 (11.0-16.0) % Plt Count 312 (160-400) X10*3/uL MPV 10.0 (9.4-12.3) fL Immature Gran % (Auto) 0.2 (0.0-0.4) % Neut % (Auto) 68.5 (45-73) % Lymph % (Auto) 26.0 (20-40) % Tillman % (Auto) 4.7 (2-11) % Eos % (Auto) 0.5 (0-4) % Baso % (Auto) 0.1 (0-2) % Lymph # (Auto) 2.1 (1.2-4.9) X10*3/uL Tillman # (Auto) 0.4 (0.1-1.2) X10*3/uL Eos # (Auto) 0.0 (0.0-0.4) X10*3/uL Baso # (Auto) 0.0 (0.0-0.2) X10*3/uL Abs Immat Gran (auto) 0.02 (0.00-0.03) X10*3/uL Absolute Neuts (auto) 5.6 (2.0-8.3) x10*3/uL Absolute Nucleated RBC 0.000 (0.0-0.012) X10*3/uL Nucleated RBC % (auto) 0.0 (0.0-0.2) /100WBC Sodium 137 (135-145) mmol/L Potassium 3.6 (3.3-5.1) mmol/L Chloride 107 (96-108) mmol/L Carbon Dioxide 21 L (22-29) mmol/L Anion Gap 13 (12-20) BUN 11 (9-16) mg/dL Creatinine 0.67 (0.5-1.4) mg/dL Estim Creat Clear Calc 121.0 Estimated GFR > 60 Random Glucose 85 (60-115) mg/dL Calcium 9.0 (8.4-10.2) mg/dL Magnesium 2.2 (1.6-2.6) mg/dL Total Bilirubin 0.5 (0.0-1.0) mg/dL Direct Bilirubin 0.1 (0.0-0.5) mg/dL AST 16 (5-31) U/L ALT 9 (0-31) U/L Alkaline Phosphatase 46 (39-117) U/L Total Protein 7.6 (6.5-8.0) g/dL Albumin 4.3 (3.5-5.0) g/dL Lipase 17 (8-78) U/L Beta HCG, Quant 157 mIU/mL Chlam trachomat DNA PCR NOT DETECTED (Not Detect.) N.gonorrhoeae DNA (PCR) NOT DETECTED (Not Detect.) Blood Type O Positive Antibody Screen NEGATIVE Independent Interpretation I performed an independent interpretation of an: Ultrasound (retained POC) Radiology Impression Discussion of test interpretation with radiology: I have reviewed the radiologist's reading. External Record Review External record reviewed: Outpatient record Discharge Plan Discharge Clinical Impression: Retained products of conception following Patient Disposition: Home, Self-Care Instructions: Dysfunctional Uterine Bleeding (ED) Additional Instructions: return for follow up Friday with Dr. Valencia come back to the ED for worsening pain dizziness weakness fainting severe pain, heavy bleeding with large clots or any other concerns. Prescriptions: No Action sumatriptan succinate 25 mg tablet See Rx Instructions PO .COMPLEX 30 Days Qty: 9 0RF Rx Instructions: take 1 tab at onset of headache; if no relief may repeat 1 tab after at least 2 hrs; max = 4 tabs/24 hr PO ibuprofen 600 mg tablet 600 mg PO Q8H PRN (Reason: pain) 15 Days Qty: 45 0RF hydroxyzine HCl 10 mg tablet 10 mg PO BEDTIME PRN (Reason: anxiety) 14 Days Qty: 14 0RF fluconazole 150 mg tablet PO Referrals: [facility] [[facility] Group] Stand Alone Forms: Work/School Release Print Language: Rwandan
[2024-08-06 10:53] LABS: Basophils Percent Auto 0.1 % (0-2); Eosinophils Percent Auto 0.5 % (0-4); Hematocrit 34.8 % (37.0-47.0); Hemoglobin 11.8 g/dl (12.0-16.0); Imm Gran Abs Auto 0.02 X10*3/uL (0.00-0.03); Imm Gran Pct Auto 0.2 % (0.0-0.4); Lymphocytes Absolute Auto 2.1 X10*3/uL (1.2-4.9); MANUAL DIFF FLAG NO; Mean Corpuscular HGB Conc 33.9 g/dl (31.0-35.0); Mean Corpuscular Hemoglobin 29.9 pg (27.0-33.0); Mean Corpuscular Volume 88.1 fL (80.0-98.0); Monocytes Absolute Auto 0.4 X10*3/uL (0.1-1.2); Monocytes Percent Auto 4.7 % (2-11); Neutrophils Absolute Auto 5.6 x10*3/uL (2.0-8.3); Neutrophils Percent Auto 68.5 % (45-73); Platelet Count 312 X10*3/uL (160-400); Red Blood Count 3.95 X10*6/uL (4.20-5.50); Red Cell Distribution Width 12.9 % (11.0-16.0); White Blood Count 8.2 X10*3/uL (4.8-10.8)
[2024-08-06 11:37] LABS: Alanine Aminotransferase 9 U/L (0-31); Albumin Level 4.3 g/dL (3.5-5.0); Alkaline Phosphatase 46 U/L (39-117); Anion Gap 13 (12-20); Aspartate Amino Transferase 16 U/L (5-31); Bilirubin Direct 0.1 mg/dL (0.0-0.5); Bilirubin Total 0.5 mg/dL (0.0-1.0); Blood Urea Nitrogen 11 mg/dL (9-16); Carbon Dioxide 21 mmol/L (22-29); Chloride 107 mmol/L (96-108); Estimated Glomerular Filt Rate > 60; Glucose Random 85 mg/dL (60-115); HCG Quantitative 157 mIU/mL; Lipase 17 U/L (8-78); Magnesium 2.2 mg/dL (1.6-2.6); Potassium 3.6 mmol/L (3.3-5.1); Sodium 137 mmol/L (135-145); Total Protein 7.6 g/dL (6.5-8.0)
[2024-08-06 12:23] LABS: CT PCR NOT DETECTED (Not Detect.); NG PCR NOT DETECTED (Not Detect.)
--- NOTE | 2024-08-06 13:26 | PM.GYNCN ---
INTERNATIONAL RELATIONS PROFESSOR - CN: HPI Data of Consult Consult date: 08/06/24 Primary Care Provider: Sotero Nesbitt PA-C Consult Narrative Narrative: I was consulted on Malu Boston who is a 28 year old female presented emergency room with vaginal bleeding. The patient had a medical termination of last week of May with mifepristone followed by misoprostol 800 mcg vaginally, the patient developed pelvic cramping passage of blood clots and tissues and her bleeding slowed down within few days afterwards and stopped for almost 4-5 weeks till last week when she started having vaginal bleeding that slowed down but yesterday her vaginal bleeding worsened and became heavier was associated with passage of blood clots and pelvic cramping. No fever or chills no nausea or vomiting. HCG in the emergency room was 158 cc:: CC: [facility] Past Medical History Medical History Frequent headaches MDD (major depressive disorder), recurrent episode, moderate TIM (generalized anxiety disorder) NGA (obstructive sleep apnea) Seizure-like activity Migraines Family History Family History Father Hypothyroidism Mother No problems noted. Maternal Grandmother Diabetes Maternal Grandfather No problems noted. Paternal Grandmother Diabetes Hypertension Stroke Paternal Grandfather No problems noted. Brother Osteosarcoma Surgical History Surgical History H/O breast augmentation Status post excision of lipoma Hx of knee surgery History of appendectomy Social History Social History Housing: Apartment Alcohol intake: current Alcohol intake frequency: a few times a month Alcohol type: hard liquor Patient Tobacco Use Status: Never used Tobacco Smoked in Last 30 Days: No e-Cigarette/Vaping Use: Currently Using Second Hand Smoke Exposure: No Advance Directives: No Advance Directives Information Provided: Yes Do you have a plan to hurt others: No Plan Patient : No service: No Current occupational status: employed Current occupation: Car Insurance Cognitive needs: No Hearing needs: No Vision needs: No Meds Allergies Allergy/AdvReac Type Severity Reaction Status Date / Time No Known Allergies Allergy Verified 08/06/24 10:09 Home Medications ?Medication ?Instructions ?Recorded ?Confirmed ?Last Taken ?Type fluconazole 150 mg tablet mg PO 04/27/24 04/27/24 Unknown History INTERNATIONAL RELATIONS PROFESSOR Physical Exam Vitals Vital signs: Temp Pulse Resp BP Pulse Ox O2 Del Method 97.9 F 92 18 127/71 100 Room Air 08/06/24 10:04 08/06/24 10:04 08/06/24 10:04 08/06/24 10:04 08/06/24 10:04 08/06/24 10:04 BMI result Body Mass Index 28.7 Female Genitalia (Pelvic) Vagina: Nontender Cervix: Grossly normal Uterus: Normal size Adnexa/Parametria: Adnexal Tenderness: None, Adnexal Mass: None, Parametrial Tenderness: None and Parametrial Mass: None Additional Comments: Minimal blood per vagina, no evidence of active vaginal bleeding INTERNATIONAL RELATIONS PROFESSOR - Results Labs 08/06/24 10:46 08/06/24 10:46 Labs: Short CBC 08/06/24 Range/Units 10:46 WBC 8.2 (4.8-10.8) X10*3/uL Hgb 11.8 L (12.0-16.0) g/dl Hct 34.8 L (37.0-47.0) % Plt Count 312 (160-400) X10*3/uL BMP 08/06/24 10:46 Sodium 137 Potassium 3.6 Chloride 107 Carbon Dioxide 21 L BUN 11 Creatinine 0.67 Calcium 9.0 Liver Function 08/06/24 Range/Units 10:46 Total Bilirubin 0.5 (0.0-1.0) mg/dL Direct Bilirubin 0.1 (0.0-0.5) mg/dL AST 16 (5-31) U/L ALT 9 (0-31) U/L Alkaline Phosphatase 46 (39-117) U/L Albumin 4.3 (3.5-5.0) g/dL Imaging US - abdomen: Radiologist's impression: ITS Impressions Doppler Study Ultrasound 08/06/24 11:50 IMPRESSION: Questionable retained products of conception in the endocervical canal. Recommend direct inspection. No ovarian torsion. Electronically signed by: Ki Winter MD 08/06/2024 01:[address] [facility] Pelvic/Transvag US 08/06/24 11:50 IMPRESSION: Questionable retained products of conception in the endocervical canal. Recommend direct inspection. No ovarian torsion. Electronically signed by: Ki Winter MD 08/06/2024 01:[address] [facility] Assessment and Plan (1) Vaginal bleeding: Status: Acute Discussed with the patient the differential diagnosis of her episodes of vaginal bleeding including but not limited to retained products of conception , menstrual cycles after medical termination of , in you chemical end up with a miscarriage since there is no previous hCG level available. Since the patient is stable with no evidence of active vaginal, explained to the patient her Options of treatment including but not limited to: Expectant management, misoprostol treatment or suction D&C. All pros and cons, risks and benefits of each approach were discussed with the patient, the patient decided to proceed with expectant management. It is instructions given the patient to schedule follow-up appointment in 48 hours in the office with repeat hCG, and to come back to emergency room in case of vaginal bleeding, pelvic pain, fever above 100.4, nausea or vomiting. All questions answered, the patient verbalized understanding
[2024-08-06 14:00] VITALS: BP 102/52; PULSE 84; RESP 16; O2SAT 100
[2024-08-06 15:23] VITALS: BP 110/60; PULSE 80; RESP 18; TEMP 36.7; O2SAT 100
[2024-08-06 17:57] LABS: Bacterial Vaginosis PCR POSITIVE (Negative); Candida Group PCR NOT DETECTED (Not Detect); Candida glab krusei PCR NOT DETECTED (Not Detect); Trichomonas vaginalis PCR NOT DETECTED (Not Detect)
== END 2024-08-06 15:24 | disposition home or self-care (01) ==
PROVIDERS: Obstetrics & Gynecology; Emergency Provider Emergency Medicine; PCP Physician Assistant
DX: N93.9 Abnormal uterine and vaginal bleeding, unspecified (principal); N76.0 Acute vaginitis; R10.2 Pelvic and perineal pain
CPT/HCPCS: 0352U; 36415; 76830; 76856; 80048; 80076; 83690; 83735; 84702; 85025; 86850; 86900; 86901; 87491; 87591; 93975; 99284

== ENCOUNTER → 2024-08-06 10:15 | Outpatient (BNV) | payer OTHER, SELFPAY | PROVIDERS: Emergency Provider Emergency Medicine; PCP Physician Assistant; Visit Provider Obstetrics & Gynecology | DX: N93.9 Abnormal uterine and vaginal bleeding, unspecified (principal) | CPT/HCPCS: 99283 ==

== ENCOUNTER → 2024-08-06 10:27 | Outpatient (BNV) | payer OTHER, SELFPAY | PROVIDERS: Emergency Provider Emergency Medicine; PCP Physician Assistant; Visit Provider Radiology Diagnostic Radiology | DX: O04.6 Delayed or excessive hemorrhage following (induced) termination of pregnancy (principal) | CPT/HCPCS: 76830; 76856; 93975 ==

== ENCOUNTER 2024-08-09 08:30 | Outpatient (REF) | payer OTHER, SELFPAY ==
--- NOTE | ~2024-08-09 | US_ITS ---
EXAMINATION: US OBSTETRICAL ULTRASOUND CLINICAL INFORMATION: Positive hCG, abnormal bleeding. COMPARISON: Pelvic ultrasound 08/06/2024. TECHNIQUE: Ultrasound of the maternal pelvis is performed using transabdominal and transvaginal transducers. Transvaginal imaging is performed due to inadequate visualization transabdominally. FINDINGS: Anteverted uterus with normal morphology. No evidence of intrauterine gestational sac. Homogeneous endometrium measuring up to 0.3 cm in thickness. No discrete endometrial vascularity. Adjacent to the right ovary, there is a masslike abnormality measuring 2.2 x 1.8 x 1.7 cm with an internal anechoic sac that contains an echogenic focus measuring 0.2 cm, highly concerning for an ectopic tubal with a tiny gestational sac and pole. The abutting right ovary is normal in morphology measuring 3.8 x 1.7 x 1.9 cm. The left ovary is normal in morphology measuring 2.7 x 1.8 x 1.5 cm. Small amount of free fluid is noted in the pelvis. US/US OB pelvic and transvaginal IMPRESSION: Findings are highly suspicious for ectopic adjacent to the right ovary. Recommend urgent OB evaluation and correlation with quantitative hCG. This critical result was discussed with Chaparro Valencia MD at 08/09/2024 1:53 PM [employer] and it was ascertained that the content and urgency of the report was understood at the time of direct communication. Electronically signed by: Leonila Moreland MD 08/09/2024 03:05 PM [facility] [place]
[2024-08-09 09:17] LABS: HCG Quantitative 174 mIU/mL
== END 2024-08-09 08:31 | disposition home or self-care (01) ==
LOC: HO.LAB 08:30
PROVIDERS: PCP Physician Assistant; Visit Provider Obstetrics & Gynecology
DX: N93.9 Abnormal uterine and vaginal bleeding, unspecified (principal); O00.90 Unspecified ectopic pregnancy without intrauterine pregnancy
CPT/HCPCS: 36415; 76801; 76817; 84702; 99212

== ENCOUNTER 2024-08-09 10:26 | Outpatient (AMB) | payer OTHER, SELFPAY ==
--- NOTE | 2024-08-09 10:36 | MHC.OFFVIS ---
Intake Visit Reasons: HCG follow up Allergies No Known Allergies Allergy (Verified 08/06/24 10:09) HPI Comments Details: Presenting for ED follow-up. The patient went to emergency room 3 days ago with vaginal bleeding and pelvic cramping, had a medical termination of and the of May by 5-6 weeks of amenorrhea and since then the patient has been having unprotected intercourse. HCG in the emergency room was 157. Blood type is 0 positive. Pelvic ultrasound showed the following: IMPRESSION: Questionable retained products of conception in the endocervical canal. Recommend direct inspection. No ovarian torsion. GC/CT were negative The patient has been doing well with right sided pelvic cramping, with mild vaginal bleeding Repeat hCG today went up to 174 Stat ultrasound done today, official report is not available yet, unofficial reading showed a 2.2 x 1.8 by 1.7 cm right mass adjacent to the right ovary with questionable CRL of 0.18 mm, suspicious of ectopic seen on previous ultrasound but not commented by radiologist [facility] Medical History Frequent headaches MDD (major depressive disorder), recurrent episode, moderate TIM (generalized anxiety disorder) NGA (obstructive sleep apnea) Seizure-like activity Migraines Surgical History H/O breast augmentation Status post excision of lipoma Hx of knee surgery History of appendectomy Family History Father Hypothyroidism Mother No problems noted. Maternal Grandmother Diabetes Maternal Grandfather No problems noted. Paternal Grandmother Diabetes Hypertension Stroke Paternal Grandfather No problems noted. Brother Osteosarcoma Social History Housing: Apartment Alcohol intake: current Alcohol intake frequency: a few times a month Alcohol type: hard liquor Patient Tobacco Use Status: Never used Tobacco e-Cigarette/Vaping Use: Currently Using Second Hand Smoke Exposure: No service: No Current occupational status: employed Current occupation: Car [employer] Cognitive needs: No Hearing needs: No Vision needs: No Review of Systems Const All systems reviewed & are unremarkable except as noted in HPI and below Physical Exam GI Palpation (GI): Soft to palpation and nontender General: Yes no CVA tenderness External Female Exam: normal external appearance and normal appearance of the urethra Speculum Exam - Vagina: normal appearance of the vagina, normal palpation, no lesions and no masses Speculum Exam - Cervix: normal appearance of the cervix, normal palpation, no lesions, no masses and nontender Bimanual exam- vagina & uterus: normal bimanual exam, normal palpation, uterine size normal, normal palpation, uterine shape normal, No Cervical tenderness present and non-tender Bimanual Exam- Adnexa, other: normal adnexae Back/Spine/Pelvis Back: no CVA tenderness Assessment & Plan Assessment & Plan (1) Ectopic : Code(s): O00.90 - Unspecified ectopic without intrauterine Category: Medical Plan: Discussed with the patient the unofficial findings on ultrasound 2.2 cm mass adjacent to the right ovary with CRL of 18 mm suspicious for ectopic with no evidence of intrauterine , also discussed the patient the rate of rise of hCG below 49% both pointing towards possibility of ectopic although nonviable intrauterine . Discussed with the patient treatment options including the following: Option 1. observation with repeat hCG every 48 hours with warning signs of SAB versus ectopic, option 2. Suction D and C to rule out intrauterine followed by hCG levels and determined SAB versus ectopic, option 3 is methotrexate treatment ; All the pros and cons risks and benefits of each approach were discussed with the patient including but not limited to, failure rate of MTX ~15%, possible exposure of methotrexate teratogenicity to an early intrauterine not diagnosed by ultrasound with the risk of SAB and severe deformities, possibility of a early intrauterine (since HCG level is very low). The patient would like a 2nd opinion, will send the patient to [facility] for evaluation. Discussed the case with nut sheller machine operator on-call Berencie Mahan CNM who accepted the patient, and medical records will faxed. All questions were answered pt verbalized understanding especially the urgency of clinical situation. Orders: Orders US pelvic and transvaginal Today Z34.90 - Encounter for supervision of normal , unspecified, unspecified trimester Coding Level of Care Code Est Pt Level 3 (81695) Diagnoses Ectopic O00.90
== END 2024-08-09 13:02 | disposition home or self-care (01) ==
LOC: HO.HWS 10:26
PROVIDERS: PCP Physician Assistant; Visit Provider Obstetrics & Gynecology
DX: O00.90 Unspecified ectopic pregnancy without intrauterine pregnancy (principal)
CPT/HCPCS: 99213

== ENCOUNTER 2024-12-30 15:09 | Outpatient (AMB) | payer OTHER, SELFPAY ==
[2024-12-30 15:14] VITALS: BP 120/74; PULSE 107; TEMP 36.4; O2SAT 97; BMI 27.5
--- NOTE | 2024-12-30 15:14 | A.OFFPC_ITS ---
Vital Signs 12/30/24 15:14 Height 5 ft 3 in Weight 155 lb BMI 27.5 BP 120/74 Blood Pressure Location Lt brachial Position Sitting Pulse 107 H Pulse Source Pulse Oximeter Temp 97.5 F Temp Source Temporal Artery Scan Pulse Oximetry (%) 97 Oxygen Delivery Method Room Air Intake Visit Reasons: f/u thyroid Intake Note: Patient is here for a thyroid follow-up and started injecting semaglutide a month ago, provided by Dr. Dickinson in [place]. Clinical Project Assistant Required: No Accompanied by: Self / Same As Patient Allergies No Known Allergies Allergy (Verified 12/30/24 15:29) Medication List - Last Reconciled 12/30/24 by Sotero Nesbitt PA-C fluconazole mg PO hydroxyzine HCl 10 mg PO BEDTIME PRN 14 days ibuprofen 600 mg PO Q8H PRN 15 days sumatriptan succinate take 1 tab at onset of headache; if no relief may repeat 1 tab after at least 2 hrs; max = 4 tabs/24 hr PO 30 days Tobacco use date assessed: 12/30/24 Dental Screening Dental Screen Date: 12/30/24 Did you have a dental visit in the last 12 months?: Yes Did you have a dental problem in the last 6 months where you did not have access to dental care?: No Was dental information given to patient?: Patient has dentist HPI f/u thyroid HPI Details The patient is a 29-year-old female presenting with difficulty losing weight, having plateaued at 152 pounds with a target of 140 pounds. Despite dietary modifications, including discontinuing soda and consuming water, and a completed cycle of semaglutide injections, she expresses frustration with the limited weight loss achieved. Possible familial thyroid dysfunction is a concern, motivated by her father's history of thyroid issues, and the patient seeks to exclude this as a barrier to her weight management goals. Post- weight changes have been significant, contributing to anxiety and a history of depression. The patient reports contemplating surgical intervention, namely a tummy tuck and breast augmentation, to address her concerns. Her family responsibilities and work schedule create challenges in maintaining an active lifestyle, marked by a busy evening routine with two children. A history of migraines is managed by medication; she reports relief from symptoms and seeks continuation of medication. A history of constipation, exacerbated by semaglutide injections, prompts her to seek management options. Surgical history includes an ectopic resulting in the unilateral removal of a fallopian tube, with current concern for potential thyroid dysfunction given her medical and family history. [facility] Medical History Frequent headaches MDD (major depressive disorder), recurrent episode, moderate TIM (generalized anxiety disorder) NGA (obstructive sleep apnea) Seizure-like activity Migraines Surgical History H/O breast augmentation Status post excision of lipoma Hx of knee surgery History of appendectomy Family History Father Hypothyroidism Mother No problems noted. Maternal Grandmother Diabetes Maternal Grandfather No problems noted. Paternal Grandmother Diabetes Hypertension Stroke Paternal Grandfather No problems noted. Brother Osteosarcoma Social History Housing: Apartment Alcohol intake: current Alcohol intake frequency: a few times a month Alcohol type: hard liquor Patient Tobacco Use Status: Never used Tobacco e-Cigarette/Vaping Use: Currently Using Second Hand Smoke Exposure: No service: No Current occupational status: employed Current occupation: Car Insurance Cognitive needs: No Hearing needs: No Vision needs: No Questionnaire PHQ-9 Over the last 2 weeks, how often have you been bothered by any of the following problems? 1. Little interest or pleasure in doing things: nearly every day 2. Feeling down, depressed, or hopeless: more than half the days 3. Trouble falling or staying asleep, or sleeping too much: nearly every day 4. Feeling tired or having little energy: nearly every day 5. Poor appetite or overeating: nearly every day 6. Feeling bad about yourself - or that you are a failure or have let yourself or your family down: not at all 7. Trouble concentrating on things, such as reading the newspaper or watching television: nearly every day 8. Moving or speaking so slowly that other people could have noticed. Or the opposite - being so fidgety or restless that you have been moving around a lot more than usual: not at all 9. Thoughts that you would be better off or of hurting yourself in some way: several days Total score: 18 Depression Screening Interpretation: Positive Depression Screening Follow-up: Existing condition Depression Screening Done: Yes [id number] - PHQ-9 Billing: Yes Source: Developed by Drs. Sameer Reeder, Steff Manriquez, Jakob Carlson and colleagues, with an educational roxanne from [employer]. Thrive Questionnaire Date Thrive assessed: 01/12/24 AUDIT C Alcohol Use Questionnaire (AUDIT-C) 2. How many drinks containing alcohol do you have on a typical day when you are drinking?: 3 or 4 3. How often do you have six or more drinks on one occasion?: Less than monthly Total Score: 2 TIM-7 AMB Questionnaire TIM-7 Date TIM - 7 assessed: 01/12/24 Source: Developed by Drs. Sameer Reeder, Steff Manriquez, Jakob Carlson and colleagues, with an educational roxanne from [employer]. Review of Systems Const Denies headache(s) Eyes Denies loss of vision ENT Denies vertigo, Denies dizziness, Denies headache(s) and Denies sore throat Card Denies chest pain, Denies leg edema and Denies lightheadedness Resp Denies cough, Denies hemoptysis and Denies wheezing GI Denies abdominal pain, Denies melena, Denies constipation, Denies diarrhea and Denies vomiting Denies urinary frequency, Denies dysuria and Denies urinary urgency Musc Denies arthralgias, Denies joint swelling, Denies numbness and Denies tingling Neuro Denies Abnormal speech present, Denies behavioral changes, Denies vertigo, Denies dizziness, Denies headache(s), Denies loss of vision, Denies memory loss, Denies numbness and Denies tingling Psych Denies anxiety, Denies behavioral changes, Denies depression, Denies memory loss and Denies panic attacks [place]/Lymph Denies easy bleeding and Denies easy bruising Aller/Immun Denies wheezing Physical exam (Primary Care) Vital Signs: Last Vital Signs Temp 97.5 F 12/30/24 15:14 Pulse 107 H 12/30/24 15:14 BP 120/74 12/30/24 15:14 Pulse Ox 97 12/30/24 15:14 Oxygen Delivery Method Room Air 12/30/24 15:14 BMI result Body Mass Index 27.5 Tobacco/Smoking Status: Tobacco use Status Tobacco use date assessed 12/30/24 12/30/24 15:27 Patient Tobacco Use Status Never used Tobacco 12/30/24 15:15 e-Cigarette/Vaping Use Currently Using 12/30/24 15:15 PHQ-9: PHQ-9 Score PHQ-9: Total score 18 12/30/24 15:35 Depression Screening Interpretation: Positive Depression Screening Follow-up: Existing condition Thrive Assessment: Date of Thrive Assessment Date Thrive assessed 01/12/24 12/30/24 15:15 Const General: healthy appearing, no acute distress, alert and awake Nutritional Appearance: well nourished Orientation/consciousness: oriented to person, oriented to place and oriented to time HENMT Ears: TM's normal bilaterally General nose exam: Normal nasal mucous membranes and turbinates present Eyes Conjunctivae: conjunctivae normal Sclerae: sclerae normal Pupils: Equal, round and reactive pupils present Neck Neck: Yes no lymphadenopathy and Yes no JVD Thyroid: Thyroid normal Carotids: no bruits Resp Effort & Inspection: normal respiratory effort and not tachypneic Auscultation: no crackles, no rales, no rhonchi and no wheezes Cardio Rate: regular rate Rhythm: regular rhythm Heart sounds: no murmurs and normal S1 and S2 GI Palpation (GI): Soft to palpation, nontender, no hepatomegaly and no splenomegaly Auscultation: normal bowel sounds Skin General skin exam: no rashes or lesions noted and dry skin Neuro General: oriented to person, oriented to place and oriented to time Cranial nerves: Yes Equal, round and reactive pupils present Speech: No Abnormal speech present Gait exam (Neuro): Normal gait present Motor exam (neuro): no tremor noted Extrem Right upper extremity: full ROM Left upper extremity: full ROM Right lower extremity: full ROM; no edema Left lower extremity: full ROM; no edema Psych Mental Status: mental status grossly normal Speech and movement: Normal speech and movement present Affect: normal affect Attitude: cooperative Thought process: Normal thought process present Coding Level of Care Code Est Pt Level 4 (80612) Diagnoses Overweight (BMI 25.0-29.9) E66.3 Family history of hypothyroidism Z83.49 Screening for diabetes mellitus (DM) Z13.1 Drug-induced constipation K59.03 Constipation type: drug induced constipation Additional Codes PHQ-9 - 12060 - PHQ-9 Billing: Yes ([id number]) Assessment & Plan Assessment & Plan (1) Overweight (BMI 25.0-29.9): Code(s): E66.3 - Overweight Category: Medical Plan: Addressing difficulty in weight reduction, with a focus on additional screening for thyroid issues and encouraging physical activity. She has lost weight since starting GLP 1 on a online prescription.. Discussed family connections regarding thyroid function and evaluated benefits and risks of potential weight loss surgery. Patient interested in trying an appetite suppressant for short period of time to help her kick start weight loss and increase her energy. Advised that she needs to be more physically active * of note she will be scheduling cosmetic surgery in [place] in June of 2025. She will need a preop evaluation before hand. (2) Family history of hypothyroidism: Code(s): Z83.49 - Family history of other endocrine, nutritional and metabolic diseases Category: Medical Plan: Willing to get her thyroid checked again, she is concerned about her inability not to lose weight. We have checked her TSH in 2020 which was normal. (3) Screening for diabetes mellitus (DM): Code(s): Z13.1 - Encounter for screening for diabetes mellitus Category: Medical Plan: As per HPI (4) Constipation: Code(s): K59.00 - Constipation, unspecified Category: Medical Qualifiers: Constipation type: drug induced constipation Qualified Code(s): K59.03 - Drug induced constipation Plan: Since starting GLP 1 she has been more constipated as of late. Will supply patient with senna to help produce bowel movements. Orders: Orders TSH reflex Free T4 12/30/24 Z83.49 - Family history of other endocrine, nutritional and metabolic diseases Complete Blood Count no Diff 12/30/24 D64.9 - Anemia, unspecified IRON PROFILE 12/30/24 D50.9 - Iron deficiency anemia, unspecified, D64.9 - Anemia, unspecified Comprehensive [place]. Panel Fast 12/30/24 Z13.1 - Encounter for screening for diabetes mellitus Medications: New sennosides (senna) 17.2 mg (2 x 8.6 mg) PO BEDTIME 60 caps 1RF 30 days K59.00 - Constipation, unspecified phentermine must administer 30 minutes before or 1-2 hours after breakfast 37.5 mg PO DAILY 28 caps 0RF 28 days E66.3 - Overweight Refilled sumatriptan succinate take 1 tab at onset of headache; if no relief may repeat 1 tab after at least 2 hrs; max = 4 tabs/24 hr PO 9 tabs 3RF 30 days G43.909 - Migraine, unspecified, not intractable, without status migrainosus
--- OUTSIDE RECORDS SUMMARY | 2024-12-30 16:37 | XMS_ITS | Clinical Summary ---
Author Organization [employer] [facility] it[facility] Address [address] [place] [address] Care Team Providers Care Pigment Pusher Name Role Phone Darrell Pang MD Primary Care Provider [phone] Surgical History Surgery Date Site/Laterality Comments APPENDECTOMY 2013 PROCEDURE: HISTORICAL APPENDECTOMY KNEE SURGERY 2008 PROCEDURE: HISTORICAL KNEE SURGERY OTHER SURGICAL HISTORY PROCEDURE: ARTHROSCOPY PROCEDURE NEC OTHER SURGICAL HISTORY 2018 PROCEDURE: HISTORY OTHER BREAST REDUCTION 2017 PROCEDURE: DC BREAST REDUCTION Medical History Medical History Date Comments Migraine DX:Migraine UTI (urinary tract infection) DX :UTI (urinary tract infection) Anemia DX:Anemia Chlamydia contact, treated 05/2020 DX:Ch lamydia contact, treated; COMMENT: 05/2020, 06/2020 Family History Medical History Relation Name Comments Other cancer Brother Arthritis Father Thyroid disease Father Other cancer Maternal Grandmother No Known Problems Mother Breast cancer Neg Hx Colon cancer Neg Hx Ovarian cancer Neg Hx Prostate cancer Neg Hx Relation Name Status Comments Brother Alive Father Alive Maternal Grandmother Alive Mother Alive Social History Tobacco Use Types Packs/Day Years Used Date Smoking Tobacco: Never Smokeless Tobacco: Never Alcohol Use Standard Drinks/Week Comments Yes 0 (1 standard drink = 0.6 oz pur e alcohol) Comments Unknown Sex and Gender Information Value Date Recorded Sex Assigned at Not on file Legal Sex Female 2:31 PM EST Gender Identity Not on file Sexual Orientation Not on file Obstetrics History Plan of Treatment Health Maintenance Due Date Last Done Comments Hepatitis B Vaccines (1 of 3 - 19+ 3-dose series) 2015 Cervical Cancer Screening: P ap Smear 01/07/2022 01/07/2019 Depression Screening 08/28/2022 HIV Screening 08/28/2022 Hepatitis C Screening 08/28/2022 Social Influencers of Health Screening 08/28/2022 COVID-19 Vaccine (1 - 2023-2 5 season) 2024 Influenza Vaccine (#1) 2024 DTaP,Tdap,and Td Vaccines (2 - Td or Tdap) 11/26/2026 11/26/2016 HIB Vaccines Aged Out No longer eligi ble based on patient's age to complete this topic HPV Vaccines Aged Out No longer eligi ble based on patient's age to complete this topic Hepatitis A Vaccines Aged Out No long er eligible based on patient's age to complete this topic IPV Vaccines Aged Out No longer eligi ble based on patient's age to complete this topic MMR Vaccines Aged Out No longer eligi ble based on patient's age to complete this topic Meningococcal ACWY Vaccine Aged Out N o longer eligible based on patient's age to complete this topic Meningococcal B Vacine Aged Out No lo nger eligible based on patient's age to complete this topic Pneumococcal Vaccine: Pediat rics (0 to 5 Years) and At-Risk Patients (6 to 64 Years) Aged Out No longer eligi ble based on patient's age to complete this topic RSV Immunization Patients Un juan 20 months Aged Out No longer eligible b ased on patient's age to complete this topic Varicella Vaccines Aged Out No longer eligible based on patient's age to complete this topic Procedures Procedure Name Priority Date/Time Associated Diagnosis Comments PAP SMEAR Routine 01/07/2019 from Last 3 Months or Most Recently Relevant to Health Maintenance Results * Pap smear (01/07/2019) 01/07/2019 Narrative HISTORICAL TESTING LAB RESULTING AGENCY - 01/08/2019 4:50 PM EDT [id number] THINPREP PAP, IMAGED: NEGATIVE FOR SQUAMOUS INTRAEPITHELIAL LESION AND MALIGNANCY . TREVOR GALLO(ASCP) (CASE ELECTRONICALLY SIGNED 01 08 2019) ADEQUACY: SATISFACTORY ENDOCERVICAL/TRANSFORMATION ZONE COMPONENT PRESENT. SOURCE: THINPREP PAP, CERVICAL, IMAGED CLINICAL INFORMATION: POS LGSIL 2017, LMP 12/2017, Z12.4 us Luz Ritter [facility] LAB CYTOLOGY ORDERABLES Final R esult HISTORICAL TESTING LAB RESULTING AGENCY from Last 3 Months or Most Recently Relevant to Health Maintenance Care Teams Pigment Pusher Relationship Specialty Start Date End Date Darrell Pang MD [address] [place] [address] [address] [facility] [place] [address] PCP - General Internal Medicine 01/26/19
== END 2024-12-30 15:49 | disposition home or self-care (01) ==
LOC: HO.HMCH 15:10
PROVIDERS: PCP Physician Assistant; Visit Provider Physician Assistant
DX: E66.3 Overweight (principal); Z83.49 Family history of other endocrine, nutritional and metabolic diseases; Z13.1 Encounter for screening for diabetes mellitus; K59.03 Drug induced constipation

== ENCOUNTER → 2024-12-30 15:09 | Outpatient (BNVA) | payer OTHER, SELFPAY | PROVIDERS: PCP Physician Assistant; Visit Provider Physician Assistant | DX: E66.3 Overweight (principal); K59.03 Drug induced constipation; D64.9 Anemia, unspecified; G43.909 Migraine, unspecified, not intractable, without status migrainosus; Z13.1 Encounter for screening for diabetes mellitus; Z83.49 Family history of other endocrine, nutritional and metabolic diseases | CPT/HCPCS: 96127; 99212 ==

== ENCOUNTER 2025-01-17 15:16 | Emergency (ER) | payer OTHER, SELFPAY ==
--- NOTE | 2025-01-17 15:19 | ECG_ITS ---
Test Reason : cp Blood Pressure : */* mmHG Vent. Rate : 101 BPM Atrial Rate : 101 BPM P-R Int : 126 ms QRS Dur : 82 ms QT Int : 328 ms P-R-T Axes : 45 71 21 degrees QTcB Int : 425 ms Sinus tachycardia Nonspecific ST and T wave abnormality Borderline ECG When compared with ECG of 02-Mar-2021 11:30, Non-specific change in ST segment in Anterior leads T wave inversion now evident in Inferior leads Nonspecific T wave abnormality, worse in Anterior leads Referred By: Argelia Quezada Electronically Signed By: ABI SERRANO
[2025-01-17 15:51] VITALS: BP 100/70; PULSE 97; RESP 18; TEMP 37.1; O2SAT 100; BMI 25.7
--- NOTE | 2025-01-17 15:51 | ED.GENADULT ---
HPI - General Adult General Chief complaint: Neuro Symptoms/Deficit Stated complaint: both hands numb h/o stroke 05/22 Time Seen by Provider: 01/17/25 16:06 Related Data Previous Rx's ?Medication ?Instructions ?Recorded hydroxyzine HCl 10 mg tablet 10 mg PO BEDTIME PRN anxiety 14 04/12/24 days #14 tabs ibuprofen 600 mg tablet 600 mg PO Q8H PRN pain 15 days #45 04/12/24 tabs phentermine 37.5 mg capsule 37.5 mg PO DAILY 28 days #28 caps 12/30/24 sennosides 8.6 mg capsule (senna) 17.2 mg (2 x 8.6 mg) PO BEDTIME 30 12/30/24 days #60 caps sumatriptan succinate 25 mg tablet See Rx Instructions PO .COMPLEX 30 12/30/24 days #9 tabs Allergies Allergy/AdvReac Type Severity Reaction Status Date / Time No Known Allergies Allergy Verified 01/17/25 15:56 PMFSH Past Medical History Medical History Frequent headaches MDD (major depressive disorder), recurrent episode, moderate TIM (generalized anxiety disorder) NGA (obstructive sleep apnea) Seizure-like activity Migraines Surgical History H/O breast augmentation Status post excision of lipoma Hx of knee surgery History of appendectomy Family History Family History Father Hypothyroidism Mother No problems noted. Maternal Grandmother Diabetes Maternal Grandfather No problems noted. Paternal Grandmother Diabetes Hypertension Stroke Paternal Grandfather No problems noted. Brother Osteosarcoma Social History Social History Housing: Apartment Alcohol intake: never Patient Tobacco Use Status: Never used Tobacco Smoked in Last 30 Days: No e-Cigarette/Vaping Use: Currently Using Second Hand Smoke Exposure: No Use of substances other than those prescribed or required for medical reasons: No Advance Directives: No Advance Directives Information Provided: No Patient : No service: No Current occupational status: employed Current occupation: Car [employer] Cognitive needs: No Hearing needs: No Vision needs: No Physical Exam ED Vital Signs: Vital Signs - 24 hr 01/17/25 15:51 01/17/25 16:14 01/17/25 18:32 Temperature 98.8 F 97.6 F Pulse Rate 97 89 80 Respiratory Rate 18 20 15 Blood Pressure 100/70 116/72 108/71 Pulse Oximetry 100 97 96 Oxygen Delivery Method Room Air Room Air Room Air BMI result Body Mass Index 25.7 Course Course Course Narrative: This is a rapid medical exam performed by Annette Quezada NP: Additional HPI, ROS, PE not included below will be deferred to primary provider. Patient is a 29-year-old female with reported history of stroke presenting with complaint of all extremities feel like they are asleep, states she is unable to move her arms or legs, nausea, chest pain, shortness of breath. Was at work when symptoms began, so she left work and drove here. Seen at [facility] last year for similar symptoms. Dizziness for past few days. Plan: EKG, labs Medications Administered Discontinued Medications Generic Name Dose Route Start Last Admin Trade Name Freq PRN Reason Stop Dose Admin Acetaminophen 650 mg 01/17/25 18:15 01/17/25 18:31 Acetaminophen 325 Mg Tablet PO 01/17/25 18:16 650 mg ONCE ONE Administration Medical Decision Making Lab Data 01/17/25 16:14 01/17/25 16:14 Labs: Lab Results 01/17/25 01/17/25 01/17/25 Range/Units 16:14 16:15 17:11 WBC 7.6 (4.8-10.8) X10*3/uL RBC 4.07 L (4.20-5.50) X10*6/uL Hgb 12.0 (12.0-16.0) g/dl Hct 35.7 L (37.0-47.0) % MCV 87.7 (80.0-98.0) fL MCH 29.5 (27.0-33.0) pg MCHC 33.6 (31.0-35.0) g/dl RDW 13.1 (11.0-16.0) % Plt Count 287 (160-400) X10*3/uL MPV 10.8 (9.4-12.3) fL Immature Gran % (Auto) 0.3 (0.0-0.4) % Neut % (Auto) 63.0 (45-73) % Lymph % (Auto) 27.4 (20-40) % [place] % (Auto) 7.2 (2-11) % Eos % (Auto) 2.0 (0-4) % Baso % (Auto) 0.1 (0-2) % Lymph # (Auto) 2.1 (1.2-4.9) X10*3/uL [place] # (Auto) 0.5 (0.1-1.2) X10*3/uL Eos # (Auto) 0.2 (0.0-0.4) X10*3/uL Baso # (Auto) 0.0 (0.0-0.2) X10*3/uL Abs Immat Gran (auto) 0.02 (0.00-0.03) X10*3/uL Absolute Neuts (auto) 4.8 (2.0-8.3) x10*3/uL Absolute Nucleated RBC 0.000 (0.0-0.012) X10*3/uL Nucleated RBC % (auto) 0.0 (0.0-0.2) /100WBC PT 13.3 H (10.9-12.4) SEC INR 1.1 (0.9-1.1) Sodium 139 (135-145) mmol/L Potassium 3.8 (3.3-5.1) mmol/L Chloride 108 (96-108) mmol/L Carbon Dioxide 22 (22-29) mmol/L Anion Gap 13 (12-20) BUN 10 (9-16) mg/dL Creatinine 0.65 (0.5-1.4) mg/dL Estim Creat Clear Calc 117.5 Estimated GFR > 60 Random Glucose 101 (60-115) mg/dL Calcium 9.1 (8.4-10.2) mg/dL Magnesium 2.1 (1.6-2.6) mg/dL Total Bilirubin 0.4 (0.0-1.0) mg/dL AST 16 (5-31) U/L ALT 12 (0-31) U/L Alkaline Phosphatase 50 (39-117) U/L Troponin I High Sens < 2.7 (<3.5-17.0) ng/L Total Protein 7.5 (6.5-8.0) g/dL Albumin 4.3 (3.5-5.0) g/dL TSH 0.64 (0.32-4.0) uIU/mL Beta HCG, Quant < 2 mIU/mL Urine Color Yellow Urine Appearance Clear Urine pH 7.0 (5.0-9.0) Ur Specific [place] <= 1.005 (1.005-1.025) Urine Protein Negative (Neg-Trace) mg/dL Urine Glucose (UA) Negative (Negative) mg/dL Urine Ketones Negative (Negative) mg/dL Urine Blood Negative (Negative) Urine Nitrite Negative (Negative) Ur Leukocyte Esterase Negative (Negative) Influenza Type A (PCR) NEGATIVE (Negative) Influenza Type B (PCR) NEGATIVE (Negative) RSV RNA Qual (PCR) NEGATIVE (Negative) SARS-CoV-2 RNA (RT-PCR) NEGATIVE (Negative) Discharge Plan Discharge Clinical Impression: Anxiety Patient Disposition: Home, Self-Care Instructions: Anxiety (ED) Prescriptions: No Action ibuprofen 600 mg tablet 600 mg PO Q8H PRN (Reason: pain) 15 Days Qty: 45 0RF hydroxyzine HCl 10 mg tablet 10 mg PO BEDTIME PRN (Reason: anxiety) 14 Days Qty: 14 0RF sumatriptan succinate 25 mg tablet See Rx Instructions PO .COMPLEX 30 Days Qty: 9 3RF Rx Instructions: take 1 tab at onset of headache; if no relief may repeat 1 tab after at least 2 hrs; max = 4 tabs/24 hr PO senna 8.6 mg capsule 17.2 mg PO BEDTIME 30 Days Qty: 60 1RF phentermine 37.5 mg capsule 37.5 mg PO DAILY 28 Days Qty: 28 0RF Rx Instructions: must administer 30 minutes before or 1-2 hours after breakfast Referrals: Sotero Nesbitt PA-C [Primary Care Provider] - 01/19/25 Print Language: Kinyarwanda
[2025-01-17 16:14] VITALS: BP 116/72; PULSE 89; RESP 20; O2SAT 97
--- NOTE | 2025-01-17 16:14 | PC.NURSE ---
a&ox4. vss and up to date. nsr on the engineering technical specialist. pt presents to the ED c/o generalized weakness, numbness, tingling in all extremities, nausea, generalized chest pain, sob x 1500 this afternoon. pt reports she was at work, typing on the computer when she noticed the sudden onset. pt then drove herself to the ED to be evaluated. hx of previous TIA. previously treated at [facility]. not on thinners. face symmetrical. no slur/change in speech noted. pt denies any dizziness/lightheadedness. strength equal bilaterally. pt reports weakness in UE have resolved at this time but is still feeling weak in her LE bilat. pt noted to have contracted hands in UE bilaterally. denies pain. 20gIV placed in the left AC - labs obtained/sent to lab. pt currently on RA in no apparent respiratory distress. no sob/wob noted. respirations even/unlabored. family bedside for support. plan of care ongoing. call araujo placed within reach.
[2025-01-17 16:23] LABS: MANUAL DIFF FLAG NO
[2025-01-17 16:25] LABS: Basophils Percent Auto 0.1 % (0-2); Eosinophils Absolute Auto 0.2 X10*3/uL (0.0-0.4); Hematocrit 35.7 % (37.0-47.0); Imm Gran Abs Auto 0.02 X10*3/uL (0.00-0.03); Imm Gran Pct Auto 0.3 % (0.0-0.4); Lymphocytes Absolute Auto 2.1 X10*3/uL (1.2-4.9); Lymphocytes Percent Auto 27.4 % (20-40); Mean Corpuscular HGB Conc 33.6 g/dl (31.0-35.0); Mean Corpuscular Hemoglobin 29.5 pg (27.0-33.0); Mean Corpuscular Volume 87.7 fL (80.0-98.0); Mean Platelet Volume 10.8 fL (9.4-12.3); Monocytes Absolute Auto 0.5 X10*3/uL (0.1-1.2); Monocytes Percent Auto 7.2 % (2-11); Neutrophils Absolute Auto 4.8 x10*3/uL (2.0-8.3); Platelet Count 287 X10*3/uL (160-400); Red Blood Count 4.07 X10*6/uL (4.20-5.50); Red Cell Distribution Width 13.1 % (11.0-16.0); White Blood Count 7.6 X10*3/uL (4.8-10.8)
[2025-01-17 16:30] LABS: INTERNATIONAL NORM RATIO 1.1 (0.9-1.1); Prothrombin Time 13.3 SEC (10.9-12.4)
--- NOTE | 2025-01-17 16:42 | ED.NEUROSD ---
HPI - Neuro Symptoms/Deficit General Chief Complaint: Neuro Symptoms/Deficit Stated Complaint: both hands numb h/o stroke 05/22 Time Seen by Provider: 01/17/25 16:06 History of Present Illness HPI Narrative: Patient is a 29-year-old female presents today with having weakness tingling tightness to the upper and the lower extremity it started at approximately 15:00 today. History of something similar went to [facility] in April of last year. There is no change in speech. There is no fever no chills. There is no history of diabetes. Patient is from home. No coughing no congestion or upper respiratory symptoms no pain on urination. No new medication. No new stressors in life. Does not think she is . History of panic attack in the past. Patient claims that in about half an hour the symptoms in the upper extremity has resolved. The symptom in the lower extremity still feels somewhat weak. She is able to lift up her leg against gravity. Patient is awake alert during these episodes. She is aware that her upper extremity and lower extremity seems weak. The symptoms seems to be bilateral in nature. Related Data Previous Rx's ?Medication ?Instructions ?Recorded hydroxyzine HCl 10 mg tablet 10 mg PO BEDTIME PRN anxiety 14 04/12/24 days #14 tabs ibuprofen 600 mg tablet 600 mg PO Q8H PRN pain 15 days #45 04/12/24 tabs phentermine 37.5 mg capsule 37.5 mg PO DAILY 28 days #28 caps 12/30/24 sennosides 8.6 mg capsule (senna) 17.2 mg (2 x 8.6 mg) PO BEDTIME 30 12/30/24 days #60 caps sumatriptan succinate 25 mg tablet See Rx Instructions PO .COMPLEX 30 12/30/24 days #9 tabs Allergies Allergy/AdvReac Type Severity Reaction Status Date / Time No Known Allergies Allergy Verified 01/17/25 15:56 Review of Systems Review of Systems: No chest pain or diaphoresis positive diffuse weakness tightness to the upper extremity Yes all other systems are reviewed and are negative PMFSH Past Medical History Medical History Frequent headaches MDD (major depressive disorder), recurrent episode, moderate TIM (generalized anxiety disorder) NGA (obstructive sleep apnea) Seizure-like activity Migraines Surgical History H/O breast augmentation Status post excision of lipoma Hx of knee surgery History of appendectomy Family History Family History Father Hypothyroidism Mother No problems noted. Maternal Grandmother Diabetes Maternal Grandfather No problems noted. Paternal Grandmother Diabetes Hypertension Stroke Paternal Grandfather No problems noted. Brother Osteosarcoma Social History Social History Housing: Apartment Alcohol intake: never Patient Tobacco Use Status: Never used Tobacco Smoked in Last 30 Days: No e-Cigarette/Vaping Use: Currently Using Second Hand Smoke Exposure: No Use of substances other than those prescribed or required for medical reasons: No Advance Directives: No Advance Directives Information Provided: No Patient : No service: No Current occupational status: employed Current occupation: Car Insurance Cognitive needs: No Hearing needs: No Vision needs: No Physical Exam Vital Signs: Vital Signs: Last Vital Signs Temp 97.6 F 01/17/25 18:32 Pulse 80 01/17/25 18:32 Resp 15 01/17/25 18:32 BP 108/71 01/17/25 18:32 Pulse Ox 96 01/17/25 18:32 O2 Del Method Room Air 01/17/25 18:32 BMI result Body Mass Index 25.7 Medications Administered Discontinued Medications Generic Name Dose Route Start Last Admin Trade Name Freq PRN Reason Stop Dose Admin Acetaminophen 650 mg 01/17/25 18:15 01/17/25 18:31 Acetaminophen 325 Mg Tablet PO 01/17/25 18:16 650 mg ONCE ONE Administration Medical Decision Making Medical Decision Making [facility] Narrative: My interpretation of her EKG showed a sinus rhythm heart rate is about 100 AK QRS QTC within normal limits is no acute ST segment elevation when compared to a previous EKG it is grossly unchanged. Patient's electrolytes are normal. Glucose is 101 no evidence for hypoglycemia. Patient had tenseness in bilateral upper extremity while she is awake alert aware that her upper extremities and lower extremity with tense. Unlikely to have a seizure. Unlikely to have a stroke bilaterally. Patient on my arrival is neurologically intact ambulated well NIH stroke scale is 0 attempted multiple times to obtain the records from [facility] but failed. Waited for approximately 4 hours. They had no reply. [place] patient's risk for stroke is low. She is 29 years old her history is not consistent with a CVA. Her exam is not consistent with a CVA. Question migraine related. test was negative no evidence for related issue TSH was normal no evidence for hypo or hyperthyroid patient's urine showed no signs of infection patient's flu COVID RSV were all negative my interpretation patient's EKG as above. Will discharge patient home close follow-up on an outpatient basis. Differential Diagnosis Differential Diagnoses: The differential diagnosis associated with the presentation includes Hypoglycemia, CVA, migraine, electrolyte disturbance Admission/Observation Consideration of admission/observation: Escalation of care including admission/observation considered Lab Data MDM Lab Attestation statement: I reviewed the patient's lab results. 01/17/25 16:14 01/17/25 16:14 Labs: Lab Results 01/17/25 01/17/25 01/17/25 Range/Units 16:14 16:15 17:11 WBC 7.6 (4.8-10.8) X10*3/uL RBC 4.07 L (4.20-5.50) X10*6/uL Hgb 12.0 (12.0-16.0) g/dl Hct 35.7 L (37.0-47.0) % MCV 87.7 (80.0-98.0) fL MCH 29.5 (27.0-33.0) pg MCHC 33.6 (31.0-35.0) g/dl RDW 13.1 (11.0-16.0) % Plt Count 287 (160-400) X10*3/uL MPV 10.8 (9.4-12.3) fL Immature Gran % (Auto) 0.3 (0.0-0.4) % Neut % (Auto) 63.0 (45-73) % Lymph % (Auto) 27.4 (20-40) % [place] % (Auto) 7.2 (2-11) % Eos % (Auto) 2.0 (0-4) % Baso % (Auto) 0.1 (0-2) % Lymph # (Auto) 2.1 (1.2-4.9) X10*3/uL [place] # (Auto) 0.5 (0.1-1.2) X10*3/uL Eos # (Auto) 0.2 (0.0-0.4) X10*3/uL Baso # (Auto) 0.0 (0.0-0.2) X10*3/uL Abs Immat Gran (auto) 0.02 (0.00-0.03) X10*3/uL Absolute Neuts (auto) 4.8 (2.0-8.3) x10*3/uL Absolute Nucleated RBC 0.000 (0.0-0.012) X10*3/uL Nucleated RBC % (auto) 0.0 (0.0-0.2) /100WBC PT 13.3 H (10.9-12.4) SEC INR 1.1 (0.9-1.1) Sodium 139 (135-145) mmol/L Potassium 3.8 (3.3-5.1) mmol/L Chloride 108 (96-108) mmol/L Carbon Dioxide 22 (22-29) mmol/L Anion Gap 13 (12-20) BUN 10 (9-16) mg/dL Creatinine 0.65 (0.5-1.4) mg/dL Estim Creat Clear Calc 117.5 Estimated GFR > 60 Random Glucose 101 (60-115) mg/dL Calcium 9.1 (8.4-10.2) mg/dL Magnesium 2.1 (1.6-2.6) mg/dL Total Bilirubin 0.4 (0.0-1.0) mg/dL AST 16 (5-31) U/L ALT 12 (0-31) U/L Alkaline Phosphatase 50 (39-117) U/L Troponin I High Sens < 2.7 (<3.5-17.0) ng/L Total Protein 7.5 (6.5-8.0) g/dL Albumin 4.3 (3.5-5.0) g/dL TSH 0.64 (0.32-4.0) uIU/mL Beta HCG, Quant < 2 mIU/mL Urine Color Yellow Urine Appearance Clear Urine pH 7.0 (5.0-9.0) Ur Specific [place] <= 1.005 (1.005-1.025) Urine Protein Negative (Neg-Trace) mg/dL Urine Glucose (UA) Negative (Negative) mg/dL Urine Ketones Negative (Negative) mg/dL Urine Blood Negative (Negative) Urine Nitrite Negative (Negative) Ur Leukocyte Esterase Negative (Negative) Influenza Type A (PCR) NEGATIVE (Negative) Influenza Type B (PCR) NEGATIVE (Negative) RSV RNA Qual (PCR) NEGATIVE (Negative) SARS-CoV-2 RNA (RT-PCR) NEGATIVE (Negative) Independent Interpretation I performed an independent interpretation of an: EKG (See above) Chronic Conditions Anxiety Social Determinants Patient?s care significantly limited by Social Determinants of Health including: Problems related to primary support group Discharge Plan Discharge Clinical Impression: Anxiety Patient Disposition: Home, Self-Care Instructions: Anxiety (ED) Prescriptions: No Action ibuprofen 600 mg tablet 600 mg PO Q8H PRN (Reason: pain) 15 Days Qty: 45 0RF hydroxyzine HCl 10 mg tablet 10 mg PO BEDTIME PRN (Reason: anxiety) 14 Days Qty: 14 0RF sumatriptan succinate 25 mg tablet See Rx Instructions PO .COMPLEX 30 Days Qty: 9 3RF Rx Instructions: take 1 tab at onset of headache; if no relief may repeat 1 tab after at least 2 hrs; max = 4 tabs/24 hr PO senna 8.6 mg capsule 17.2 mg PO BEDTIME 30 Days Qty: 60 1RF phentermine 37.5 mg capsule 37.5 mg PO DAILY 28 Days Qty: 28 0RF Rx Instructions: must administer 30 minutes before or 1-2 hours after breakfast Referrals: Sotero Nesbitt PA-C [Primary Care Provider] - 01/19/25 Print Language: Icelandic
[2025-01-17 16:47] LABS: Anion Gap 13 (12-20)
[2025-01-17 16:50] LABS: Alanine Aminotransferase 12 U/L (0-31); Albumin Level 4.3 g/dL (3.5-5.0); Aspartate Amino Transferase 16 U/L (5-31); Bilirubin Total 0.4 mg/dL (0.0-1.0); Blood Urea Nitrogen 10 mg/dL (9-16); Calcium 9.1 mg/dL (8.4-10.2); Carbon Dioxide 22 mmol/L (22-29); Chloride 108 mmol/L (96-108); Creatinine Clr Calc Pharmacy 117.5; Estimated Glomerular Filt Rate > 60; Glucose Random 101 mg/dL (60-115); Magnesium 2.1 mg/dL (1.6-2.6); Potassium 3.8 mmol/L (3.3-5.1); Sodium 139 mmol/L (135-145); Total Protein 7.5 g/dL (6.5-8.0)
[2025-01-17 16:57] LABS: HCG Quantitative < 2 mIU/mL; Troponin-I High Sensitivity < 2.7 ng/L (<3.5-17.0)
[2025-01-17 17:06] LABS: Alkaline Phosphatase 50 U/L (39-117)
[2025-01-17 17:10] LABS: TSH reflex Free T4 0.64 uIU/mL (0.32-4.0)
[2025-01-17 17:21] LABS: Appearance Urine Clear; Color Urine Yellow; Glucose Urine UA Negative (Negative); Leukocyte Esterase Urine Negative (Negative); Nitrite Urine Negative (Negative); Specific Gravity - Urine <= 1.005 (1.005-1.025); Urine Blood Negative (Negative); Urine Ketones Negative (Negative); Urine Protein Negative (Neg-Trace)
[2025-01-17 17:27] LABS: Influenza A PCR NEGATIVE (Negative); Influenza B PCR NEGATIVE (Negative); Resp Syncy Virus RNA Qual PCR NEGATIVE (Negative); SARS COV2 PCR INHOUSE NEGATIVE (Negative)
--- NOTE | 2025-01-17 17:30 | PC.NURSE ---
contractions in upper extremities bilaterally subsided at this time. neuros otherwise remain intact. plan of care ongoing. call araujo placed within reach.
[2025-01-17] MEDS: Acetaminophen 325 MG TABLET 650 MG PO (18:31)
[2025-01-17 18:32] VITALS: BP 108/71; PULSE 80; RESP 15; TEMP 36.4; O2SAT 96
--- NOTE | 2025-01-17 18:38 | PC.NURSE ---
pt reporting increase in ROBISON on right side of face. neuros remain intact. pt medicated outside of parameters w/ tylenol per provider order as [facility] have not been transferred to [facility] at this time. effectiveness pending.
[2025-01-17 19:41] VITALS: BP 108/71; PULSE 80; RESP 15; TEMP 36.4; O2SAT 96
== END 2025-01-17 19:46 | disposition home or self-care (01) ==
PROVIDERS: Registered Nurse Emergency; Emergency Provider Emergency Medicine Emergency Medical Services; PCP Physician Assistant
DX: R20.0 Anesthesia of skin (principal); F41.1 Generalized anxiety disorder; F43.0 Acute stress reaction; R00.0 Tachycardia, unspecified; Z03.818 Encounter for observation for suspected exposure to other biological agents ruled out; Z79.899 Other long term (current) drug therapy
CPT/HCPCS: 0241U; 36415; 80053; 81003; 83735; 84443; 84484; 84702; 85025; 85610; 93005; 99283; 99285

== ENCOUNTER → 2025-01-17 15:19 | Outpatient (BNV) | payer OTHER, SELFPAY | PROVIDERS: Emergency Provider Emergency Medicine Emergency Medical Services; PCP Physician Assistant; Visit Provider Internal Medicine | DX: R00.0 Tachycardia, unspecified (principal) | CPT/HCPCS: 93010 ==

== ENCOUNTER 2025-01-18 11:38 | Outpatient (AMB) | payer OTHER, SELFPAY ==
[2025-01-18 11:46] VITALS: BP 106/62; PULSE 106; TEMP 36.3; O2SAT 98; BMI 26.6
--- NOTE | 2025-01-18 11:46 | MHC.PC.OV ---
Vital Signs 01/18/25 11:46 Height 5 ft 3 in Weight 150 lb BMI 26.6 BP 106/62 Blood Pressure Location Lt brachial Position Sitting Pulse 106 H Pulse Source Pulse Oximeter Temp 97.3 F Temp Source Temporal Artery Scan Pulse Oximetry (%) 98 Oxygen Delivery Method Room Air [place] [facility] [place] both hands numb h/o stroke 05/22 Allergies No Known Allergies Allergy (Verified 01/18/25 12:00) Medication List - Last Reconciled 01/18/25 by Sotero Nesbitt PA-C hydroxyzine HCl 10 mg PO BEDTIME PRN 14 days ibuprofen 600 mg PO Q8H PRN 15 days phentermine 37.5 mg PO DAILY 28 days sennosides (senna) 17.2 mg (2 x 8.6 mg) PO BEDTIME 30 days sumatriptan succinate take 1 tab at onset of headache; if no relief may repeat 1 tab after at least 2 hrs; max = 4 tabs/24 hr PO 30 days Tobacco use date assessed: 12/30/24 Dental Screening Dental Screen Date: 12/30/24 [place] [facility] [place] both hands numb h/o stroke 05/22 HPI Details The patient is a 29-year-old female presenting with significant neurological symptoms and headache concerns following an emergency room visit. The patient detailed an initial episode last year featuring left-side facial drooping and numbness affecting her hands, primarily the right. Recently, she experienced significant head pressure sensations described as crawling ants, escalating to migraines. During work, she experienced severe headaches and chest discomfort, leading to an ER visit, where the examination did not provide a definitive diagnosis. It was suggested these symptoms might be stress or migraine-related. She uses Sumatriptan as needed, finding it beneficial in managing her headaches, especially those resembling atypical migraines, accompanied by neurological findings like paresthesias. The patient is currently experiencing anxiety, manifesting as difficulty breathing in enclosed spaces, affecting her overall quality of life. A strategy to address anxiety symptoms was discussed, where the preference for mental health therapy took precedence over medications. Laboratory Tests 10/31/20 11/03/22 11/03/22 08:32 16:39 16:41 RBC 4.07 L Hgb 11.0 L Creatinine 0.63 Troponin I High Se ns TSH 1.52 Beta HCG, Quant Urine Te st NEGATIVE 01/17/25 16:14 RBC 4.07 L Hgb 12.0 Creatinine Troponin I High Se ns < 2.7 TSH Beta HCG, Quant < [address] PFSH Medical History TIM (generalized anxiety disorder) Frequent headaches MDD (major depressive disorder), recurrent episode, moderate NGA (obstructive sleep apnea) Seizure-like activity Migraines Surgical History H/O breast augmentation Status post excision of lipoma Hx of knee surgery History of appendectomy Family History Father Hypothyroidism Mother No problems noted. Maternal Grandmother Diabetes Maternal Grandfather No problems noted. Paternal Grandmother Diabetes Hypertension Stroke Paternal Grandfather No problems noted. Brother Osteosarcoma Social History Housing: Apartment Alcohol intake: never Patient Tobacco Use Status: Never used Tobacco e-Cigarette/Vaping Use: Currently Using Second Hand Smoke Exposure: No service: No Current occupational status: employed Current occupation: Car Insurance Cognitive needs: No Hearing needs: No Vision needs: No Questionnaire Thrive Questionnaire Date Thrive assessed: 01/12/24 TIM-7 AMB Questionnaire TIM-7 Date TIM - 7 assessed: 01/12/24 Source: Developed by Drs. Sameer Reeder, Steff Manriquez, Jakob Carlson and colleagues, with an educational roxanne from [employer]. Review of Systems Const Reports headache(s) Eyes Denies loss of vision ENT Denies vertigo, Denies dizziness, Reports headache(s) and Denies sore throat Card Denies chest pain, Denies leg edema and Denies lightheadedness Resp Denies cough, Denies hemoptysis and Denies wheezing GI Denies abdominal pain, Denies melena, Denies constipation, Denies diarrhea and Denies vomiting Denies urinary frequency, Denies dysuria and Denies urinary urgency Musc Denies arthralgias, Denies joint swelling, Reports numbness and Denies tingling Neuro Denies Abnormal speech present, Denies behavioral changes, Denies vertigo, Denies dizziness, Reports headache(s), Denies loss of vision, Denies memory loss, Reports numbness and Denies tingling Psych Denies anxiety, Denies behavioral changes, Denies depression, Denies memory loss and Denies panic attacks [place]/Lymph Denies easy bleeding and Denies easy bruising Aller/Immun Denies wheezing Physical exam (Primary Care) Vital Signs: Last Vital Signs Temp 97.3 F 01/18/25 11:46 Pulse 106 H 01/18/25 11:46 BP 106/62 01/18/25 11:46 Pulse Ox 98 01/18/25 11:46 Oxygen Delivery Method Room Air 01/18/25 11:46 BMI result Body Mass Index 26.6 Tobacco/Smoking Status: Tobacco use Status Tobacco use date assessed 12/30/24 01/18/25 11:47 Patient Tobacco Use Status Never used Tobacco 01/18/25 11:47 e-Cigarette/Vaping Use Currently Using 01/18/25 11:47 Thrive Assessment: Date of Thrive Assessment Date Thrive assessed 01/12/24 01/18/25 11:47 Const General: healthy appearing, no acute distress, alert and awake Nutritional Appearance: well nourished Orientation/consciousness: oriented to person, oriented to place and oriented to time HENMT Ears: TM's normal bilaterally General nose exam: Normal nasal mucous membranes and turbinates present Eyes Conjunctivae: conjunctivae normal Sclerae: sclerae normal Pupils: Equal, round and reactive pupils present Neck Neck: Yes no lymphadenopathy and Yes no JVD Thyroid: Thyroid normal Carotids: no bruits Resp Effort & Inspection: normal respiratory effort and not tachypneic Auscultation: no crackles, no rales, no rhonchi and no wheezes Cardio Rate: regular rate Rhythm: regular rhythm Heart sounds: no murmurs and normal S1 and S2 GI Palpation (GI): Soft to palpation, nontender, no hepatomegaly and no splenomegaly Auscultation: normal bowel sounds Skin General skin exam: no rashes or lesions noted and dry skin Neuro General: oriented to person, oriented to place and oriented to time Cranial nerves: Yes Equal, round and reactive pupils present Speech: No Abnormal speech present Gait exam (Neuro): Normal gait present Motor exam (neuro): no tremor noted Extrem Right upper extremity: full ROM Left upper extremity: full ROM Right lower extremity: full ROM; no edema Left lower extremity: full ROM; no edema Psych Mental Status: mental status grossly normal Speech and movement: Normal speech and movement present Affect: normal affect Attitude: cooperative Thought process: Normal thought process present Coding Level of Care Code Est Pt Level 3 (52790) Diagnoses 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 We will monitor for any additional triggers and reduce them where possible. Record from [facility] in February of 2024 indicated that she did undergo a CT angio of head and neck without any high-grade arterial stenosis, she also underwent an echocardiogram showing normal findings. Consider neurology evaluation if neurological events continue (2) TIM (generalized anxiety disorder): Code(s): F41.1 - Generalized anxiety disorder Category: Medical Plan: I recommended mental health therapy to address her symptoms of anxiety, focusing on stress reduction. Referral services will be provided. Orders: Referrals Counseling Referral F41.1 - Generalized anxiety disorder Medications: Refilled sumatriptan succinate take 1 tab at onset of headache; if no relief may repeat 1 tab after at least 2 hrs; max = 4 tabs/24 hr PO 9 tabs 3RF 30 days G43.909 - Migraine, unspecified, not intractable, without status migrainosus
--- OUTSIDE RECORDS SUMMARY | 2025-01-18 14:11 | XMS_ITS | Clinical Summary ---
Author Organization [facility] ity Address [address] [place] [address] Care Team Providers Care Gallery Assistant Name Role Phone Darrell Pang MD Primary Care Provider [phone] Surgical History Surgery Date Site/Laterality Comments APPENDECTOMY 2013 PROCEDURE: HISTORICAL APPENDECTOMY KNEE SURGERY 2008 PROCEDURE: HISTORICAL KNEE SURGERY OTHER SURGICAL HISTORY PROCEDURE: ARTHROSCOPY PROCEDURE NEC OTHER SURGICAL HISTORY 2018 PROCEDURE: HISTORY OTHER BREAST REDUCTION 2017 PROCEDURE: MS BREAST REDUCTION Medical History Medical History Date [...] - 2023-2 5 season) 2024 Influenza Vaccine (Season Ended) 2025 DTaP,Tdap,and Td Vaccines (2 - Td or [...] age to complete this topic Meningococcal B Vaccine Aged Out No l onger eligible based on patient's age to complete [...] RESULTING AGENCY - 01/08/2019 4:50 PM EDT [id number] THINPREP PAP, IMAGED: NEGATIVE FOR SQUAMOUS INTRAEPITHELIAL LESION AND MALIGNANCY . TREVOR GALLO(ASCP) (CASE ELECTRONICALLY SIGNED 01 08 2019) ADEQUACY: SATISFACTORY ENDOCERVICAL/TRANSFORMATION ZONE COMPONENT PRESENT. SOURCE: THINPREP PAP, CERVICAL, IMAGED CLINICAL INFORMATION: POS LGSIL 2017, LMP 12/2017, Z12.4 us Luz [facility] LAB CYTOLOGY ORDERABLES Final R esult HISTORICAL TESTING LAB RESULTING AGENCY from Last 3 Months or Most Recently Relevant to Health Maintenance Care Teams Gallery Assistant Relationship Specialty Start Date End Date Darrell Pang MD [address] [place] [address] [address] [facility] [place] [address] PCP - General Internal Medicine 01/26/19
== END 2025-01-18 12:12 | disposition home or self-care (01) ==
LOC: HO.HMCH 11:39
PROVIDERS: PCP Physician Assistant; Visit Provider Physician Assistant
DX: G43.009 Migraine without aura, not intractable, without status migrainosus (principal); F41.1 Generalized anxiety disorder

== ENCOUNTER → 2025-01-18 11:38 | Outpatient (BNVA) | payer OTHER, SELFPAY | PROVIDERS: PCP Physician Assistant; Visit Provider Physician Assistant | DX: G43.009 Migraine without aura, not intractable, without status migrainosus (principal); F41.1 Generalized anxiety disorder | CPT/HCPCS: 99212 ==

== ENCOUNTER 2025-02-23 16:44 | Outpatient (AMB) | payer OTHER, SELFPAY ==
[2025-02-23 16:48] VITALS: BP 122/96; PULSE 77; TEMP 36.3; O2SAT 100; BMI 26.1
--- NOTE | 2025-02-23 16:48 | MHC.PC.OV ---
Vital Signs 02/23/25 16:48 Height 5 ft 3 in Weight 147 lb 2 oz BMI 26.1 BP 122/96 H Blood Pressure Location Lt brachial Position Sitting Pulse 77 Pulse Source Pulse Oximeter Temp 97.3 F Temp Source Temporal Artery Scan Pulse Oximetry (%) 100 Oxygen Delivery Method Room Air Intake Visit Reasons: anxiety attack Employee Services Manager Required: No Accompanied by: Self / Same As Patient Allergies No Known Allergies Allergy (Verified 02/23/25 16:55) Medication List - Last Reconciled 02/23/25 by BRITANY Reza hydroxyzine HCl 10 mg PO BEDTIME PRN 14 days ibuprofen 600 mg PO Q8H PRN 15 days phentermine 37.5 mg PO DAILY 28 days sennosides (senna) 17.2 mg (2 x 8.6 mg) PO BEDTIME 30 days sumatriptan succinate take 1 tab at onset of headache; if no relief may repeat 1 tab after at least 2 hrs; max = 4 tabs/24 hr PO 30 days Tobacco use date assessed: 12/30/24 Dental Screening Dental Screen Date: 12/30/24 HPI anxiety attack HPI Details The patient is a 29-year-old female presenting with anxiety and panic attacks. She has been experiencing these episodes since 2022, following a traumatic event related to her daughter's father imprisonment. The episodes are characterized by locking of the hands, immobility, chest pain, heavy breathing, and body numbness, lasting 30-40 minutes. These episodes have been frequent, with the last significant occurrence in November. The patient reports elevated blood pressure during these episodes and associates it with stress. She is currently not receiving any treatment for anxiety and is awaiting therapy. The patient also experiences migraines, which she attributes to stress, and reports issues with constipation requiring medication. She has a past history of seizures from 2014 but has had no recent seizure activity. The patient has gained weight since the onset of her anxiety and is on medication for weight loss. Suspects this medication may contribute to her anxiety and elevated blood pressure. [facility] Medical History TIM (generalized anxiety disorder) Frequent headaches MDD (major depressive disorder), recurrent episode, moderate NGA (obstructive sleep apnea) Seizure-like activity Migraines Surgical History H/O breast augmentation Status post excision of lipoma Hx of knee surgery History of appendectomy Family History Father Hypothyroidism Mother No problems noted. Maternal Grandmother Diabetes Maternal Grandfather No problems noted. Paternal Grandmother Diabetes Hypertension Stroke Paternal Grandfather No problems noted. Brother Osteosarcoma Social History Housing: Apartment Alcohol intake: never Patient Tobacco Use Status: Never used Tobacco e-Cigarette/Vaping Use: Currently Using Second Hand Smoke Exposure: No service: No Current occupational status: employed Current occupation: Car Insurance Cognitive needs: No Hearing needs: No Vision needs: No Questionnaire Thrive Questionnaire Date Thrive assessed: 01/12/24 TIM-7 AMB Questionnaire TIM-7 Date TIM - 7 assessed: 01/12/24 Source: Developed by Drs. Sameer Reeder, Steff Manriquez, Jakob Carlson and colleagues, with an educational roxanne from [employer]. Review of Systems Const Reports headache(s) (Intermittent stress related) Eyes Denies loss of vision ENT Denies vertigo, Denies dizziness, Reports headache(s) (Intermittent stress related) and Denies sore throat Card Reports chest pain (Intermittent stress related), Denies leg edema, Denies lightheadedness and Reports dyspnea (Intermittent anxiety/stress related) Resp Denies cough, Denies hemoptysis, Reports dyspnea (Intermittent anxiety/stress related) and Denies wheezing GI Denies abdominal pain, Denies melena, Reports constipation, Denies diarrhea and Denies vomiting Denies urinary frequency, Denies dysuria and Denies urinary urgency Musc Denies numbness Neuro Denies Abnormal speech present, Denies behavioral changes, Denies vertigo, Denies dizziness, Reports headache(s) (Intermittent stress related), Denies loss of vision, Denies memory loss, Denies numbness and Reports other (episodes of her body freezing up and she is unable to move) Psych Reports anxiety, Denies behavioral changes, Denies depression, Denies memory loss and Denies panic attacks Chandler/Lymph Denies easy bleeding and Denies easy bruising Aller/Immun Denies wheezing Physical exam (Primary Care) Vital Signs: Last Vital Signs Temp 97.3 F 02/23/25 16:48 Pulse 77 02/23/25 16:48 BP 122/96 H 02/23/25 16:48 Pulse Ox 100 02/23/25 16:48 Oxygen Delivery Method Room Air 02/23/25 16:48 BMI result Body Mass Index 26.1 Tobacco/Smoking Status: Tobacco use Status Tobacco use date assessed 12/30/24 02/23/25 16:49 Patient Tobacco Use Status Never used Tobacco 02/23/25 16:49 e-Cigarette/Vaping Use Currently Using 02/23/25 16:49 Thrive Assessment: Date of Thrive Assessment Date Thrive assessed 01/12/24 02/23/25 16:49 Const General: healthy appearing, no acute distress, alert and awake Nutritional Appearance: well nourished Orientation/consciousness: oriented to person, oriented to place and oriented to time HENMT Ears: external ears normal General nose exam: Normal external nose present Eyes Conjunctivae: conjunctivae normal Sclerae: sclerae normal Pupils: Equal, round and reactive pupils present Neck Neck: Yes no lymphadenopathy and Yes no JVD Thyroid: Thyroid normal Carotids: no bruits Resp Effort & Inspection: normal respiratory effort and not tachypneic Auscultation: no crackles, no rales, no rhonchi and no wheezes Cardio Rate: regular rate Rhythm: regular rhythm Heart sounds: no murmurs and normal S1 and S2 GI Palpation (GI): Soft to palpation, nontender, no hepatomegaly and no splenomegaly Auscultation: normal bowel sounds Skin General skin exam: no rashes or lesions noted and dry skin Neuro General: oriented to person, oriented to place and oriented to time Cranial nerves: Yes Equal, round and reactive pupils present Speech: No Abnormal speech present Gait exam (Neuro): Normal gait present Motor exam (neuro): no tremor noted Extrem Right upper extremity: full ROM Left upper extremity: full ROM Right lower extremity: full ROM; no edema Left lower extremity: full ROM; no edema Psych Mental Status: mental status grossly normal Speech and movement: Normal speech and movement present Affect: Anxious affect present Attitude: cooperative Thought process: Normal thought process present Coding Level of Care Code Est Pt Level 3 (59809) Diagnoses TIM (generalized anxiety disorder) F41.1 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 This is associated with chest pain shortness of breath and weakness. Reports that this could last for 30 minutes and then she is completely back to normal. Patient has a history of untreated anxiety due to aversion to medications. She is currently waiting to hear back for appointment to be connected with a therapist. Patient reports that these episodes started after her daughter's father went to skilled nursing. Explained to the patient that her episodes are consistent with stress related panic attacks. Encouraged the patient to start treatment for her anxiety in order to mitigate these episodes. Reports that she does not want to be dependent on medications. Patient consent to be started on an as-needed medication for anxiety. Hydroxyzine 25 mg b.i.d. p.r.n. ordered. Encouraged the patient to try this medication at night 1st to see if it cause her to be drowsy. We will reach out to the community navigator to see if we could expedite her seeing a therapist. (2) Atypical migraine: Code(s): G43.009 - Migraine without aura, not intractable, without status migrainosus Category: Medical Plan: Reports intermittent migraines that she associated with stress. Continue ibuprofen 600 mg Q 8 hours p.r.n. and sumatriptan succinate as scheduled prn. (3) Overweight (BMI 25.0-29.9): Code(s): E66.3 - Overweight Category: Medical Plan: Encouraged low-cholesterol diet and activity as tolerated Phentermine 37.5 mg daily refilled (4) Constipation: Code(s): K59.00 - Constipation, unspecified Category: Medical Qualifiers: Constipation type: drug induced constipation Qualified Code(s): K59.03 - Drug induced constipation Plan: Encouraged fluids and dietary fiber Continue senna tabs 17.2 mg at bedtime Medications: New hydroxyzine HCl 25 mg PO BID PRN 60 tabs 2RF itching Refilled phentermine must administer 30 minutes before or 1-2 hours after breakfast 37.5 mg PO DAILY 28 caps 0RF 28 days E66.3 - Overweight sennosides (senna) 17.2 mg (2 x 8.6 mg) PO BEDTIME 60 caps 1RF 30 days K59.00 - Constipation, unspecified sumatriptan succinate take 1 tab at onset of headache; if no relief may repeat 1 tab after at least 2 hrs; max = 4 tabs/24 hr PO 9 tabs 3RF 30 days G43.909 - Migraine, unspecified, not intractable, without status migrainosus Discontinued hydroxyzine HCl Discontinued Reason: Duplicate 10 mg PO BEDTIME 14 days PRN 14 tabs 0RF anxiety F41.1 - Generalized anxiety disorder, F41.9 - Anxiety disorder, unspecified
== END 2025-02-23 17:20 | disposition home or self-care (01) ==
PROVIDERS: PCP Physician Assistant
DX: F41.1 Generalized anxiety disorder (principal); G43.009 Migraine without aura, not intractable, without status migrainosus; E66.3 Overweight; K59.03 Drug induced constipation

== ENCOUNTER → 2025-02-23 16:44 | Outpatient (BNVA) | payer OTHER, SELFPAY | PROVIDERS: PCP Physician Assistant | DX: F41.1 Generalized anxiety disorder (principal); G43.009 Migraine without aura, not intractable, without status migrainosus; E66.3 Overweight; Z68.26 Body mass index [BMI] 26.0-26.9, adult; K59.03 Drug induced constipation; T50.905A Adverse effect of unspecified drugs, medicaments and biological substances, initial encounter | CPT/HCPCS: 99212 ==

== ENCOUNTER 2025-05-18 16:05 | Outpatient (AMB) | payer OTHER, SELFPAY ==
--- NOTE | 2025-05-18 16:12 | MHC.PC.OV ---
Vital Signs 05/18/25 16:13 Height 5 ft 3 in Weight 144 lb 6 oz BMI 25.6 BP 122/66 Blood Pressure Location Rt brachial Position Sitting Pulse 80 Pulse Source Pulse Oximeter Temp 97.3 F Temp Source Temporal Artery Scan Pulse Oximetry (%) 100 Oxygen Delivery Method Room Air Intake Visit Reasons: Annual physical Intake Note: Patient is here today for a physical. Employment Service Specialist Required: No Structural Iron Erector: Present Accompanied by: Son Allergies No Known Allergies Allergy (Verified 05/18/25 16:20) Medication List - Last Reconciled 05/18/25 by Sotero Nesbitt PA-C hydroxyzine HCl 25 mg PO BID PRN ibuprofen 600 mg PO Q8H PRN 15 days phentermine 37.5 mg PO DAILY 28 days sennosides (senna) 17.2 mg (2 x 8.6 mg) PO BEDTIME 30 days sumatriptan succinate take 1 tab at onset of headache; if no relief may repeat 1 tab after at least 2 hrs; max = 4 tabs/24 hr PO 30 days Tobacco use date assessed: 05/18/25 Dental Screening Dental Screen Date: 12/30/24 HPI Annual physical HPI Details Patient is a 29-year-old female here today for an annual physical. Patient has a past medical history significant for generalized anxiety disorder, anemia. Concern--> She reports numbness in her right foot, which has been occurring frequently and is associated with certain positions at work. The numbness is localized to the foot and does not extend to the knee or back. The patient also reports difficulty sleeping, stating that she has been unable to sleep well for the past two weeks. She has been using melatonin and hydroxyzine to aid sleep, but finds the latter too strong, causing a hangover effect. She has been experiencing increased anxiety, which she attributes to her current medication regimen and lifestyle changes. .. Overweight: Has been more physically active and has lost a few lb since last office visit. She would like to be on 1 more 28 day supply of phentermine to continue for a goal weight of 140lbs Vaccines up-to-date with [facility] Medical History TIM (generalized anxiety disorder) Frequent headaches MDD (major depressive disorder), recurrent episode, moderate NGA (obstructive sleep apnea) Seizure-like activity Migraines Surgical History H/O breast augmentation Status post excision of lipoma Hx of knee surgery History of appendectomy Family History Father Hypothyroidism Mother No problems noted. Maternal Grandmother Diabetes Maternal Grandfather No problems noted. Paternal Grandmother Diabetes Hypertension Stroke Paternal Grandfather No problems noted. Brother Osteosarcoma Social History Housing: Apartment Alcohol intake: current Alcohol intake frequency: a few times a month Alcohol type: hard liquor Patient Tobacco Use Status: Never used Tobacco e-Cigarette/Vaping Use: Former Use Second Hand Smoke Exposure: No service: No Current occupational status: employed Current occupation: Car Insurance Cognitive needs: No Hearing needs: No Vision needs: No Questionnaire Thrive Questionnaire Date Thrive assessed: 05/18/25 I am a: Patient What is your living situation today?: I have a steady place to live Within the past 12 months, did the food you bought not last and you didn't have the money to get more?: Never true Within the past 12 months, did you worry whether your food would run out before you got money to buy more?: Never true Do you have trouble paying for medicines?: No Do you have trouble getting transportation to medical appointments?: No Do you have trouble paying your heating and electricity bill?: No Do you have trouble taking care of your child, family member or friend?: No Do you have trouble with day-to-day activities such as bathing, preparing meals, shopping, managing finances, etc.?: No Are you currently unemployed and looking for a job?: No Are you interested in more education?: No Please select the resources that you would like help with: None Currently or been in a relationship where the following occur: No concerns reported THRIVE Score: 0 TIM-7 AMB Questionnaire TIM-7 Date TIM - 7 assessed: 05/18/25 Feeling nervous, anxious, or on edge: 0 = Not at all Not being able to stop or control worryin = Not at all Worrying too much about different things: 0 = Not at all Trouble relaxin = Not at all Being so restless that it is hard to sit still: 0 = Not at all Becoming easily annoyed or irritable: 0 = Not at all Feeling afraid as if something awful might happen: 0 = Not at all Total TIM-7 score (0-4 normal; 5-9 mild; 10-14 moderate; 15-21 severe): 0 Source: Developed by Drs. Sameer Reeder, Steff Manriquez, Jakob Carlson and colleagues, with an educational roxanne from [employer]. TIM-7 Assessment Billing TIM-7 Assessment Tool: TIM-7 Assessment 59523 Review of Systems Const Denies body aches, Denies chills, Denies excessive sweating, Denies fatigue, Denies fever(s) and Denies headache(s) Eyes Denies blurry vision ENT Denies dysphagia, Denies vertigo, Denies dizziness, Denies headache(s), Denies hearing loss and Denies tinnitus Card Denies chest pain, Denies chest pain with activity, Denies syncope, Denies irregular heart rhythm and Denies dyspnea Resp Denies chest congestion, Denies cough, Denies hemoptysis, Denies dyspnea and Denies wheezing GI Denies abdominal pain, Denies melena, Denies hematochezia, Denies coffee ground emesis, Denies dysphagia, Denies diarrhea, Denies nausea and Denies vomiting Denies urinary frequency, Denies dysuria, Denies urinary hesitancy and Denies urinary urgency Musc Denies arthralgias, Denies limited range of motion, Denies muscle cramps and Denies muscle weakness Skin/Breast Denies rash and Denies skin ulcer Neuro Denies Abnormal speech present, Denies confusion, Denies vertigo, Denies dizziness, Denies syncope, Denies headache(s), Denies memory loss and Denies seizure-like activity Psych Reports anxiety, Denies confusion, Denies depression, Denies memory loss, Reports panic attacks and Denies paranoia Endo Denies excessive sweating, Denies fatigue, Denies flushing, Denies polydipsia and Denies polyuria Aller/Immun Denies wheezing Physical exam (Primary Care) Vital Signs: Last Vital Signs Temp 97.3 F 05/18/25 16:13 Pulse 80 05/18/25 16:13 BP 122/66 05/18/25 16:13 Pulse Ox 100 05/18/25 16:13 Oxygen Delivery Method Room Air 05/18/25 16:13 BMI result Body Mass Index 25.6 Tobacco/Smoking Status: Tobacco use Status Tobacco use date assessed 05/18/25 05/18/25 16:19 Patient Tobacco Use Status Never used Tobacco 05/18/25 16:19 e-Cigarette/Vaping Use Former Use 05/18/25 16:19 Thrive Assessment: Date of Thrive Assessment Date Thrive assessed 05/18/25 05/18/25 16:19 Currently or been in a relationship where the following occur: No concerns reported Const General: cooperative, comfortable, no acute distress, alert and awake; No confusion Orientation/consciousness: oriented to person, oriented to place, patient oriented x3 and No confusion HENMT Head: Yes normocephalic Ears: external ears normal and TM's normal bilaterally Face and sinus: No sinus tenderness Mouth: Normal oral and palatal mucosa present and tongue normal Teeth and gingiva: dentition normal and gingiva normal Throat: Yes posterior oropharynx normal, Yes tonsils normal and Yes uvula midline Eyes Conjunctivae: conjunctivae normal Sclerae: sclerae normal Pupils: Equal, round and reactive pupils present EOM: EOMs intact bilaterally Direct Ophthalmoscopy: No no photophobia Neck Neck: Yes no lymphadenopathy, No tender and Yes no JVD Thyroid: Thyroid normal Carotids: no bruits Chest Chest palpation & inspection: no tenderness Resp Effort & Inspection: normal respiratory effort, no audible wheezes, not labored and no stridor Auscultation: no crackles, no rales, no rhonchi and no wheezes Cardio Jugular venous distension: no JVD Rate: regular rate, not bradycardic and not tachycardic Rhythm: regular rhythm Bruits: no carotid bruits Peripheral pulses: Peripheral pulses 2+ throughout GI Inspection: Yes normal to inspection, No abdominal wall ecchymosis and No visible herniation Palpation (GI): Soft to palpation, nontender, no guarding, not rigid and No hepatosplenomegaly present Auscultation: normoactive bowel sounds General: Yes no CVA tenderness Back/Spine/Pelvis Back: no CVA tenderness and No back tenderness Cervical Spine: cervical ROM normal Thoracic/Lumbar Spine: thoracic and lumbar spine normal to inspection, straight leg raise negative bilaterally, No thoraco-lumbar ROM limited and No lumbar spinal tenderness Skin Lesions: no lesions Rashes: no rashes Wounds: no wounds Neuro General: oriented to person, oriented to place, patient oriented x3, CN's II-XI intact bilaterally and No confusion Cranial nerves: Yes Equal, round and reactive pupils present and Yes Normal accommodation reflex present Cognition (Neuro): normal cognition Speech: No Abnormal speech present Gait exam (Neuro): Normal gait present Motor exam (neuro): 5/5 motor strength present throughout Extrem Right upper extremity: full ROM; no cyanosis Left upper extremity: full ROM; no cyanosis Right lower extremity: no edema Left lower extremity: no edema Psych Appearance: grossly normal Mental Status: mental status grossly normal Affect: normal affect Attitude: cooperative Thought process: Normal thought process present Coding Level of Care Code Est Pt Prev Care 18-39y(50838) Diagnoses Annual physical exam Z00.00 Paresthesia of right foot R20.2 TIM (generalized anxiety disorder) F41.1 Additional Codes TIM-7 Assessment Billing - TIM-7 Assessment Tool: TIM-7 Assessment [id number] ([id number]) Assessment & Plan Assessment & Plan (1) Annual physical exam: Code(s): Z00.00 - Encounter for general adult medical examination without abnormal findings Category: Medical Plan: As per HPI (2) Paresthesia of right foot: Code(s): R20.2 - Paresthesia of skin Category: Medical Plan: A nerve conduction study is planned to assess for potential nerve entrapment in the right leg. Physical therapy may be considered based on the results of the nerve test. (3) TIM (generalized anxiety disorder): Code(s): F41.1 - Generalized anxiety disorder Category: Medical Plan: Patient continues to suffer with anxiety. She is not interested in med therapy at this time. She does have hydroxyzine available to her to which helps her as needed for panic. Due to the sleeping issue she is interested in trying a lower dose of hydroxyzine to help sleep Orders: Orders NE electromyogram (EMG) 05/18/25 R20.2 - Paresthesia of skin Medications: New hydroxyzine HCl 10 mg PO BEDTIME 30 tabs 3RF 30 days F41.1 - Generalized anxiety disorder, F41.9 - Anxiety disorder, unspecified Refilled sumatriptan succinate take 1 tab at onset of headache; if no relief may repeat 1 tab after at least 2 hrs; max = 4 tabs/24 hr PO 9 tabs 3RF 30 days G43.909 - Migraine, unspecified, not intractable, without status migrainosus phentermine must administer 30 minutes before or 1-2 hours after breakfast 37.5 mg PO DAILY 28 caps 0RF 28 days E66.3 - Overweight sennosides (senna) 17.2 mg (2 x 8.6 mg) PO BEDTIME 60 caps 1RF 30 days K59.00 - Constipation, unspecified Discontinued hydroxyzine HCl Discontinued Reason: Doctor's Order 25 mg PO BID PRN 60 tabs 2RF itching
[2025-05-18 16:13] VITALS: BP 122/66; PULSE 80; TEMP 36.3; O2SAT 100; BMI 25.6
--- OUTSIDE RECORDS SUMMARY | 2025-05-18 16:39 | XMS_ITS | Encounter Summary ---
Author Organization [facility] Address [address] [place] [address] Phone Care Team Providers Care Cabinet Worker Name Role Phone July Garcia PATIENT OFFICE REP Primary Care Provider [phone] Shaila Miranda PATIENT OFFICE REP Primary Care Provider Encounter Details Date Type Department Care Team (Late st Contact Info) Description 10/28/2017 Procedure Pass OR Admitting Dept - Virtual Department [address] [place] [address] Social History Tobacco Use Types Packs/Day Years Used Date Smoking Tobacco: Never Smokeless Tobacco: Never Alcohol Use Standard Drinks/Week Comments No 0 (1 standard drink = 0.6 oz pur e alcohol) Comments Unknown Sex and Gender Information Value Date Recorded Sex Assigned at Not on file Legal Sex Female 10:24 PM EDT Gender Identity Not on file Sexual Orientation Not on file documented as of this encounter Plan of Treatment Not on file documented as of this encounter Visit Diagnoses Not on filedocumented in this encounter Care Teams Cabinet Worker Relationship Specialty Start Date End Date July Garcia NP [address] [place] [address] [place] [address] [email or web address] PCP - General 07/17/17 03/15/18 Shaila Miranda NP [address] [place] [address] [email or web address] PCP - General Family Medicine 03/16/18 documented as of this encounter Additional Source Comments The information contained in this document represents components of the legal health record. It is not the complete legal health record.[facility]
--- OUTSIDE RECORDS SUMMARY | 2025-05-18 16:39 | XMS_ITS | Clinical Summary ---
Author Organization [facility] ity Address [address] [place] [address] Care Team Providers Care Divine Healer Name Role Phone Darrell Pang MD Primary Care Provider [phone] Surgical History Surgery Date Site/Laterality Comments APPENDECTOMY 2013 PROCEDURE: HISTORICAL APPENDECTOMY KNEE SURGERY 2008 PROCEDURE: HISTORICAL KNEE SURGERY OTHER SURGICAL HISTORY PROCEDURE: ARTHROSCOPY PROCEDURE NEC OTHER SURGICAL HISTORY 2018 PROCEDURE: HISTORY OTHER BREAST REDUCTION 2017 PROCEDURE: ID BREAST REDUCTION Medical History Medical History Date [...] Cancer Screening: P ap Smear 01/07/2022 01/07/2019 HIV Screening 08/28/2022 Hepatitis C Screening 08/28/2022 Social Influencers of Health Screening 08/28/2022 COVID-19 Vaccine (1 - 2023-2 5 season) 2024 Depression Screening 09/29/2024 Influenza Vaccine (#1) 2025 DTaP,Tdap,and Td Vaccines (2 - Td [...] 5 Years) and At-Risk Patients (6 to 49 Years) Aged Out No longer eligi ble [...] RESULTING AGENCY - 01/08/2019 4:50 PM EDT [id number] THINPREP PAP, IMAGED: NEGATIVE FOR SQUAMOUS INTRAEPITHELIAL [...] Recently Relevant to Health Maintenance Care Teams Divine Healer Relationship Specialty Start Date End Date Darrell Pang MD [address] [place] [address] [address] [facility] [place] [address] PCP - General Internal Medicine 01/26/19
== END 2025-05-18 16:36 | disposition home or self-care (01) ==
LOC: HO.HMCH 16:06
PROVIDERS: PCP Physician Assistant; Visit Provider Physician Assistant
DX: Z00.00 Encounter for general adult medical examination without abnormal findings (principal); R20.2 Paresthesia of skin; F41.1 Generalized anxiety disorder

== ENCOUNTER → 2025-05-18 16:05 | Outpatient (BNVA) | payer OTHER, SELFPAY | PROVIDERS: PCP Physician Assistant; Visit Provider Physician Assistant | DX: Z00.00 Encounter for general adult medical examination without abnormal findings (principal); F41.1 Generalized anxiety disorder; R20.0 Anesthesia of skin; E66.3 Overweight; R20.2 Paresthesia of skin; G43.909 Migraine, unspecified, not intractable, without status migrainosus; K59.00 Constipation, unspecified; Z68.25 Body mass index [BMI] 25.0-25.9, adult | CPT/HCPCS: 96127; 99395 ==

== ENCOUNTER 2025-07-18 11:37 | Emergency (ER) | payer OTHER, SELFPAY ==
[2025-07-18 12:15] VITALS: BP 105/71; PULSE 78; RESP 14; TEMP 37; O2SAT 99; BMI 27.1
--- NOTE | 2025-07-18 12:17 | ED.GENADULT ---
HPI - General Adult General Chief complaint: Chest Pain Stated complaint: Cp , trouble breathing Related Data Previous Rx's ?Medication ?Instructions ?Recorded hydroxyzine HCl 10 mg tablet 10 mg PO BEDTIME 30 days #30 tabs 05/18/25 ibuprofen 600 mg tablet 600 mg PO Q8H PRN pain 15 days #45 07/21/25 tabs magnesium 250 mg tablet 250 mg PO DAILY #30 tabs 07/21/25 ondansetron 4 mg disintegrating 4 mg PO Q8H PRN nausea and 07/21/25 tablet vomiting #14 tabs sennosides 8.6 mg capsule (senna) 17.2 mg (2 x 8.6 mg) PO BEDTIME 30 07/21/25 days #60 caps sumatriptan succinate 50 mg tablet See Rx Instructions PO .COMPLEX 07/21/25 #14 tabs Allergies Allergy/AdvReac Type Severity Reaction Status Date / Time No Known Allergies Allergy Verified 07/21/25 14:42 PMFSH Past Medical History Medical History TIM (generalized anxiety disorder) Frequent headaches MDD (major depressive disorder), recurrent episode, moderate NGA (obstructive sleep apnea) Seizure-like activity Migraines Surgical History H/O breast augmentation Status post excision of lipoma Hx of knee surgery History of appendectomy Family History Family History Father Hypothyroidism Mother No problems noted. Maternal Grandmother Diabetes Maternal Grandfather No problems noted. Paternal Grandmother Diabetes Hypertension Stroke Paternal Grandfather No problems noted. Brother Osteosarcoma Social History Social History Housing: Apartment Alcohol intake: current Alcohol intake frequency: a few times a month Alcohol type: hard liquor Patient Tobacco Use Status: Never used Tobacco e-Cigarette/Vaping Use: Former Use Second Hand Smoke Exposure: No service: No Current occupational status: employed Current occupation: Car Insurance Cognitive needs: No Hearing needs: No Vision needs: No Physical Exam ED Vital Signs: Vital Signs - 24 hr 07/18/25 12:15 Temperature 98.6 F Pulse Rate 78 Respiratory Rate 14 Blood Pressure 105/71 Pulse Oximetry 99 Oxygen Delivery Method Room Air BMI result Body Mass Index 27.1 Course Course Course Narrative: RME, this is a rapid medical exam performed by Luis Alberto Reyes please refer to primary provider for complete H&P- 29-year-old female presents for evaluation of chest pain, shortness of breath, numbness and tingling. She has a history of anxiety. Plan for cardiac workup. Medical Decision Making Lab Data 07/18/25 12:56 07/18/25 12:56 Labs: Lab Results 07/18/25 Range/Units 12:56 WBC 6.5 (4.8-10.8) X10*3/uL RBC 3.89 L (4.20-5.50) X10*6/uL Hgb 11.7 L (12.0-16.0) g/dl Hct 34.8 L (37.0-47.0) % MCV 89.5 (80.0-98.0) fL MCH 30.1 (27.0-33.0) pg MCHC 33.6 (31.0-35.0) g/dl RDW 12.6 (11.0-16.0) % Plt Count 273 (160-400) X10*3/uL MPV 10.1 (9.4-12.3) fL Immature Gran % (Auto) 0.2 (0.0-0.4) % Neut % (Auto) 52.7 (45-73) % Lymph % (Auto) 40.9 H (20-40) % Chase % (Auto) 4.7 (2-11) % Eos % (Auto) 1.2 (0-4) % Baso % (Auto) 0.3 (0-2) % Lymph # (Auto) 2.7 (1.2-4.9) X10*3/uL Chase # (Auto) 0.3 (0.1-1.2) X10*3/uL Eos # (Auto) 0.1 (0.0-0.4) X10*3/uL Baso # (Auto) 0.0 (0.0-0.2) X10*3/uL Abs Immat Gran (auto) 0.01 (0.00-0.03) X10*3/uL Absolute Neuts (auto) 3.4 (2.0-8.3) x10*3/uL Absolute Nucleated RBC 0.000 (0.0-0.012) X10*3/uL Nucleated RBC % (auto) 0.0 (0.0-0.2) /100WBC Sodium 138 (135-145) mmol/L Potassium 4.1 (3.3-5.1) mmol/L Chloride 106 (96-108) mmol/L Carbon Dioxide 26 (22-29) mmol/L Anion Gap 10 L (12-20) BUN 8 L (9-16) mg/dL Creatinine 0.56 (0.5-1.4) mg/dL Estim Creat Clear Calc 139.7 Estimated GFR > 60 Random Glucose 94 (60-115) mg/dL Calcium 9.4 (8.4-10.2) mg/dL Magnesium 2.1 (1.6-2.6) mg/dL Total Bilirubin 0.5 (0.0-1.0) mg/dL AST 19 (5-31) U/L ALT 17 (0-31) U/L Alkaline Phosphatase 49 (39-117) U/L Troponin I High Sens < 2.7 (<3.5-17.0) ng/L Total Protein 7.7 (6.5-8.0) g/dL Albumin 4.6 (3.5-5.0) g/dL TSH 1.00 (0.32-4.0) uIU/mL Beta HCG, Quant < 2 mIU/mL Discharge Plan Discharge Clinical Impression: Chest pain Patient Disposition: Left W/O Completing Treatment Prescriptions: No Action hydroxyzine HCl 10 mg tablet 10 mg PO BEDTIME 30 Days Qty: 30 3RF sumatriptan succinate 50 mg tablet See Rx Instructions PO .COMPLEX Qty: 14 0RF Rx Instructions: take 1 tab at onset of headache; if no relief may repeat 1 tab after at least 2 hrs; max = 4 tabs/24 hr PO magnesium 250 mg tablet 250 mg PO DAILY Qty: 30 0RF ondansetron 4 mg tablet,disintegrating 4 mg PO Q8H PRN (Reason: nausea and vomiting) Qty: 14 0RF senna 8.6 mg capsule 17.2 mg PO BEDTIME 30 Days Qty: 60 1RF ibuprofen 600 mg tablet 600 mg PO Q8H PRN (Reason: pain) 15 Days Qty: 45 0RF Discharge Date/Time: 07/18/25 17:51
--- NOTE | 2025-07-18 12:18 | ECG_ITS ---
Test Reason : CP Blood Pressure : */* mmHG Vent. Rate : 65 BPM Atrial Rate : 65 BPM P-R Int : 130 ms QRS Dur : 78 ms QT Int : 400 ms P-R-T Axes : 55 71 41 degrees QTcB Int : 416 ms Normal sinus rhythm Normal ECG When compared with ECG of 17-Jan-2025 15:28, Vent. rate has decreased by 36 bpm Referred By: Dean Reyes Electronically Signed By: RALPH COFFEY MD
[2025-07-18 13:00] LABS: MANUAL DIFF FLAG NO
[2025-07-18 13:03] LABS: Hematocrit 34.8 % (37.0-47.0); Hemoglobin 11.7 g/dl (12.0-16.0); Imm Gran Abs Auto 0.01 X10*3/uL (0.00-0.03); Imm Gran Pct Auto 0.2 % (0.0-0.4); Lymphocytes Absolute Auto 2.7 X10*3/uL (1.2-4.9); Mean Corpuscular HGB Conc 33.6 g/dl (31.0-35.0); Mean Corpuscular Hemoglobin 30.1 pg (27.0-33.0); Mean Corpuscular Volume 89.5 fL (80.0-98.0); NRBC Abs Auto 0.000 X10*3/uL (0.0-0.012); NRBC Pct Auto 0.0 /100WBC (0.0-0.2); Platelet Count 273 X10*3/uL (160-400); Red Blood Count 3.89 X10*6/uL (4.20-5.50); White Blood Count 6.5 X10*3/uL (4.8-10.8)
[2025-07-18 13:32] LABS: Alanine Aminotransferase 17 U/L (0-31); Albumin Level 4.6 g/dL (3.5-5.0); Alkaline Phosphatase 49 U/L (39-117); Anion Gap 10 (12-20); Aspartate Amino Transferase 19 U/L (5-31); Blood Urea Nitrogen 8 mg/dL (9-16); Calcium 9.4 mg/dL (8.4-10.2); Carbon Dioxide 26 mmol/L (22-29); Chloride 106 mmol/L (96-108); Creatinine Clr Calc Pharmacy 139.7; Estimated Glomerular Filt Rate > 60; Magnesium 2.1 mg/dL (1.6-2.6); Potassium 4.1 mmol/L (3.3-5.1); Sodium 138 mmol/L (135-145); Total Protein 7.7 g/dL (6.5-8.0); Troponin-I High Sensitivity < 2.7 ng/L (<3.5-17.0)
--- OUTSIDE RECORDS SUMMARY | 2025-07-18 20:48 | XMS_ITS | Encounter Summary ---
Author Organization [facility] Address [address] [place] [address] Phone Care Team Providers Care Hat Lining Paster Name Role Phone July Garcia ASSISTANT FINANCE MANAGER Primary Care Provider [phone] Shaila [place] ASSISTANT FINANCE MANAGER Primary Care Provider Encounter Details Date Type Department Care Team (Late st Contact Info) Description 10/28/2017 Procedure Pass OR Admitting Dept - Virtual Department [address] [place] [address] Social History Tobacco Use Types Packs/Day Years [...] on filedocumented in this encounter Care Teams Hat Lining Paster Relationship Specialty Start Date End Date July Garcia NP [address] [place] [address] [place] [address] [email or web address] PCP - General 07/17/17 03/15/18 Shaila [place] NP [address] [place] [phone] [email or web address] PCP - General Family Medicine 03/16/18 documented as of this encounter Additional Source Comments The information contained in this document represents components of the legal health record. It is not the complete legal health record.[facility]
--- OUTSIDE RECORDS SUMMARY | 2025-07-18 20:48 | XMS_ITS | Clinical Summary ---
Author Organization [facility] Address [address] [place] [phone] Phone Care Team Providers Care Onion Farmer Name Role Phone Shaila [place] HEALTH PROGRAM DIRECTOR Primary Care Provider Allergies No known active allergies Medications ibuprofen (ADVIL,MOTRIN) 200 MG tablet Take 200 mg by mouth every 6 (six) hours as needed for pain (specific location in comments). Active Active Problems Problem Noted Date Diagnosed Date Hypertrophy of breast 10/28/2017 Social History Tobacco Use Types Packs/Day Years Used Date Smoking Tobacco: Never Smokeless Tobacco: Never Alcohol Use Standard Drinks/Week Comments No 0 (1 standard drink = 0.6 oz pur e alcohol) Education Answer Date Recorded Are you interested in more education? Not on wilfredo e 01/24/2023 Are you concerned about learning? Not on file 01/24/2023 No 01/24/2023 No 01/24/2023 Digital Access Answer Date Recorded No 02/22/2023 No 02/22/2023 No 02/22/2023 Reliable internet access at home? Not on file 02/22/2023 Device with a working camera? Not on file Comments Unknown Sex and Gender Information Value Date Recorded Sex Assigned at Not on file Legal Sex Female 10:24 PM EDT Gender Identity Not on file Sexual Orientation Not on file Last Filed Vital Signs Vital Sign Reading Time Taken Comments Blood Pressure 99/82 03/16/2018 1:46 PM EDT Pulse 53 03/16/2018 1:46 PM EDT Temperature 36.5 C (97.7 F) 10/28/2017 3:30 PM EST Respiratory Rate 10 10/28/2017 3:38 PM EST Oxygen Saturation 99% 10/28/2017 4:25 PM EST Inhaled Oxygen Concentration - - Weight 80.7 kg (178 lb) 10/22/2017 2:45 PM EST Height 160 cm (5' 3 ) 10/22/2017 2:45 PM EST Body Mass Index 31.53 10/22/2017 2:45 PM EST Plan of Treatment Health Maintenance Due Date Last Done Comments Adult Td,Tdap Booster 1996 DEPRESSION SCREENING 2008 HEPATITIS C SCREENING 2014 HIV ONE-TIME SCREENING (18-6 5 YEARS) 2014 PAP SMEAR 2017 SMOKING STATUS SCREENING (On ce After 26 Yrs) 2022 INFLUENZA VACCINE (#1) 2025 10/21/2016 COVID-19 VACCINE ( - 2024-2 6 season) 2025 HEPATITIS A VACCINES Aged Out No long er eligible based on patient's age to complete this topic HIB VACCINES Aged Out No longer eligi ble based on patient's age to complete this topic MENINGOCOCCAL VACCINES (ACWY) Aged Out No longer eligible based on patient's age to complete this topic MENINGOCOCCAL VACCINES (B) Aged Out N o longer eligible based on patient's age to complete this topic PNEUMOCOCCAL VACCINES (0-49 years) Aged Out No longer eligible based on patient's age to complete this topic Medical Devices Not on file Insurance [place] [address] [address] [address] ACO [facility] [address] [place] [address] [place] [address] [place] [address] [place] [address] ACO Advance Directives For more information, please contact: [phone] (9AM - 5PM [facility], Friday-Friday) * Full Code (Presumed) (Latest Code Status on File) Date Activated Date Inactivated Comments 10/28/2017 10:10 AM 10/28/2017 7:18 PM Care Teams Onion Farmer Relationship Specialty Start Date End Date Shaila [place] NP [facility] [address] [place] [phone] [email or web address] PCP - General Family Medicine 03/16/18 Additional Source Comments The information contained in this document represents components of the legal health record. It is not the complete legal health record.[facility]
== END 2025-07-18 17:51 | disposition left against medical advice (07) ==
PROVIDERS: Physician Assistant; Emergency Provider Emergency Medicine; PCP Physician Assistant
DX: R07.9 Chest pain, unspecified (principal)
CPT/HCPCS: 36415; 80053; 83735; 84443; 84484; 84702; 85025; 93005; 99283

== ENCOUNTER → 2025-07-18 12:18 | Outpatient (BNV) | payer OTHER, SELFPAY | PROVIDERS: PCP Physician Assistant; Visit Provider Internal Medicine Cardiovascular Disease | DX: R07.9 Chest pain, unspecified (principal) | CPT/HCPCS: 93010 ==

== ENCOUNTER 2025-07-21 14:35 | Outpatient (AMB) | payer OTHER, SELFPAY ==
[2025-07-21 14:42] VITALS: BP 100/60; PULSE 96; RESP 18; TEMP 36.3; O2SAT 98; BMI 27.2
--- NOTE | 2025-07-21 14:42 | A.OFFPC_ITS ---
Vital Signs 07/21/25 14:42 Height 5 ft 3 in Weight 153 lb 6 oz BMI 27.2 BP 100/60 Blood Pressure Location Lt brachial Position Sitting Respiration 18 Pulse 96 Pulse Source Pulse Oximeter Temp 97.3 F Temp Source Temporal Artery Scan Pulse Oximetry (%) 98 Oxygen Delivery Method Room Air Intake Visit Reasons: chest pain Trolley Cleaner Required: No Accompanied by: Self / Same As Patient Allergies No Known Allergies Allergy (Verified 07/21/25 14:42) Medication List - Last Reconciled 07/21/25 by Mary Curtis PA-C hydroxyzine HCl 10 mg PO BEDTIME 30 days ibuprofen 600 mg PO Q8H PRN 15 days sennosides (senna) 17.2 mg (2 x 8.6 mg) PO BEDTIME 30 days sumatriptan succinate take 1 tab at onset of headache; if no relief may repeat 1 tab after at least 2 hrs; max = 4 tabs/24 hr PO 30 days Tobacco use date assessed: 07/21/25 Dental Screening Dental Screen Date: 07/21/25 Did you have a dental visit in the last 12 months?: Yes Did you have a dental problem in the last 6 months where you did not have access to dental care?: No Was dental information given to patient?: Patient has dentist HPI chest pain HPI Details 29-year-old female with past medical his tory of migraines, panic attack, anxiety last seen 04/2025 coming in for acute problem. In review of the notes, patient was seen in [facility] ED 07/18/2025 for chest pain workup but left before completing treatment. Presenting with migraines. The migraines have increased in frequency to daily occurrences since last week, previously occurring twice weekly. The patient reports that the prescribed medication, sumatriptan, is ineffective and requesting a higher dose. She does have associated symptoms including dizziness and nausea with the migraines. This has been going on for about 3 days. [facility] Medical History TIM (generalized anxiety disorder) Frequent headaches MDD (major depressive disorder), recurrent episode, moderate NGA (obstructive sleep apnea) Seizure-like activity Migraines Surgical History H/O breast augmentation Status post excision of lipoma Hx of knee surgery History of appendectomy Family History Father Hypothyroidism Mother No problems noted. Maternal Grandmother Diabetes Maternal Grandfather No problems noted. Paternal Grandmother Diabetes Hypertension Stroke Paternal Grandfather No problems noted. Brother Osteosarcoma Social History Housing: Apartment Alcohol intake: current Alcohol intake frequency: a few times a month Alcohol type: hard liquor Patient Tobacco Use Status: Never used Tobacco e-Cigarette/Vaping Use: Former Use Second Hand Smoke Exposure: No service: No Current occupational status: employed Current occupation: Car Insurance Cognitive needs: No Hearing needs: No Vision needs: No Questionnaire PHQ-9 Over the last 2 weeks, how often have you been bothered by any of the following problems? 1. Little interest or pleasure in doing things: not at all 2. Feeling down, depressed, or hopeless: not at all 3. Trouble falling or staying asleep, or sleeping too much: not at all 4. Feeling tired or having little energy: not at all 5. Poor appetite or overeating: not at all 6. Feeling bad about yourself - or that you are a failure or have let yourself or your family down: not at all 7. Trouble concentrating on things, such as reading the newspaper or watching television: not at all 8. Moving or speaking so slowly that other people could have noticed. Or the opp osite - being so fidgety or restless that you have been moving around a lot more than usual: not at all 9. Thoughts that you would be better off or of hurting yourself in some way: not at all Total score: 0 Source: Developed by Drs. Sameer Reeder, Steff Manriquez, Jakob Carlson and colleagues, with an educational roxanne from [employer]. Thrive Questionnaire Date Thrive assessed: 05/18/25 I am a: Patient What is your living situation today?: I choose not to answer this question Within the past 12 months, did the food you bought not last and you didn't have the money to get more?: I choose not to answer this question Within the past 12 months, did you worry whether your food would run out before you got money to buy more?: I choose not to answer this question Do you have trouble paying for medicines?: I choose not to answer this question Do you have trouble getting transportation to medical appointments?: I choose not to answer this question Do you have trouble paying your heating and electricity bill?: I choose not to answer this question Do you have trouble taking care of your child, family member or friend?: I choose not to answer this question Do you have trouble with day-to-day activities such as bathing, preparing meals, shopping, managing finances, etc.?: I choose not to answer this question Are you currently unemployed and looking for a job?: I choose not to answer this question Are you interested in more education?: I choose not to answer this question Please select the resources that you would like help with: None Currently or been in a relationship where the following occur: I choose not to answer THRIVE Score: 0 AUDIT C Alcohol Use Questionnaire (AUDIT-C) 1. How often do you have a drink containing alcohol?: 2-4 times a month Total Score: 2 TIM-7 AMB Questionnaire TIM-7 Date TIM - 7 assessed: 05/18/25 Feeling nervous, anxious, or on edge: 1 = Several days Not being able to stop or control worryin = Nearly every day Worrying too much about different things: 3 = Nearly every day Trouble relaxin = Nearly every day Being so restless that it is hard to sit still: 3 = Nearly every day Becoming easily annoyed or irritable: 3 = Nearly every day Feeling afraid as if something awful might happen: 3 = Nearly every day Total TIM-7 score (0-4 normal; 5-9 mild; 10-14 moderate; 15-21 severe): 19 Source: Developed by Drs. Sameer Reeder, Steff Manriquez, Jakob Carlson and colleagues, with an educational roxanne from [employer]. Review of Systems Const Denies body aches, Denies chills, Denies fever(s), Reports headache(s) and Denies poor appetite Eyes Reports no additional complaints ENT Denies dizziness and Reports headache(s) Card Denies chest pain, Denies edema, Denies irregular heart rhythm, Denies lightheadedness and Denies dyspnea Resp Denies cough and Denies dyspnea GI Denies abdominal pain, Denies constipation, Denies diarrhea, Reports nausea and Denies vomiting Reports no additional complaints Musc Reports no additional complaints and Denies abnormal gait Skin/Breast Reports system reviewed and no additional complaints, except as documented Neuro Denies abnormal gait, Denies dizziness and Reports headache(s) Psych Reports no additional complaints Physical exam (Primary Care) Vital Signs: Last Vital Signs Temp 97.3 F 07/21/25 14:42 Pulse 96 07/21/25 14:42 Resp 18 07/21/25 14:42 BP 100/60 07/21/25 14:42 Pulse Ox 98 07/21/25 14:42 Oxygen Delivery Method Room Air 07/21/25 14:42 BMI result Body Mass Index 27.2 Tobacco/Smoking Status: Tobacco use Status Tobacco use date assessed 07/21/25 07/21/25 14:48 Patient Tobacco Use Status Never used Tobacco 07/21/25 14:48 e-Cigarette/Vaping Use Former Use 07/21/25 14:48 PHQ-9: PHQ-9 Score PHQ-9: Total score 0 07/21/25 14:51 Thrive Assessment: Date of Thrive Assessment Date Thrive assessed 05/18/25 07/21/25 14:48 Currently or been in a relationship where the following occur: I choose not to answer Const General: cooperative, healthy appearing, comfortable and no acute distress Orientation/consciousness: patient oriented x3 [facility] Head: Yes normocephalic Ears: hearing grossly normal bilaterally General nose exam: Normal external nose present Eyes General: appearance normal, both eyes and all related structures Conjunctivae: conjunctivae normal Neck Neck: Yes full ROM and Yes no lymphadenopathy Resp Effort & Inspection: normal respiratory effort Auscultation: clear to auscultation bilaterally, no crackles, no rales, no rhonchi and no wheezes Cardio Rate: regular rate Rhythm: regular rhythm Skin General skin exam: no rashes or lesions noted Neuro General: patient oriented x3 Gait exam (Neuro): Normal gait present Extrem General: Yes normal to inspection, Yes full ROM and No edema Psych Affect: normal affect Attitude: cooperative Insight: Good insight present (Psych) Judgement: Good judgement present (Psych) Coding Level of Care Code Est Pt Level 3 (66519) Diagnoses Atypical migraine G43.009 Assessment & Plan Assessment & Plan (1) Atypical migraine: Code(s): G43.009 - Migraine without aura, not intractable, without status migrainosus Category: Medical Plan: The patient will be prescribed a higher dose of sumatriptan at 50 mg to manage migraines, with instructions to use it as needed. Magnesium supplementation will be initiated to aid in migraine prevention, and B2 vitamin supplementation is recommended as an [id number] option. The patient is advised to maintain hydration and consider using ibuprofen and Tylenol for additional relief. If migraines worsen or become more frequent, a referral to neurology will be considered. I did offer viral testing for COVID and flu given the new onset of the worsening migraines. She was seen in the ED but experienced dizziness related to her anxiety and left. She has not had recurrence of dizziness but does have occasional nausea with the migraines and Zofran was sent to pharmacy. I did review red flag symptoms of migraines and when to present for re-evaluation. I did also offer migraine prevention medications which she was declining today. Plan This note was constructed using voice recognition software. While every effort has been made to ensure accuracy and administrative dietitian, still areas may have been included sometimes these areas may affect the content or meeting of the given symptoms. Total time spent caring for the patient today was 20 minutes. This includes time spent before the visit reviewing the chart, time spent during the visit, and time spent after the visit and documentation. Patient was informed and verbally consented to the use of an ambient scribe for clinic note documentation during this visit. Orders: Orders Hemoglobin A1c Today Z13.1 - Encounter for screening for diabetes mellitus Medications: New magnesium 250 mg PO DAILY 30 tabs 0RF ondansetron 4 mg PO Q8H PRN 14 tabs 0RF nausea and vomiting sumatriptan succinate take 1 tab at onset of headache; if no relief may repeat 1 tab after at least 2 hrs; max = 4 tabs/24 hr PO 14 tabs 0RF Refilled sennosides (senna) 17.2 mg (2 x 8.6 mg) PO BEDTIME 60 caps 1RF 30 days K59.00 - Constipation, unspecified ibuprofen 600 mg PO Q8H PRN 45 tabs 0RF pain 15 days G43.909 - Migraine, unspecified, not intractable, without status migrainosus Discontinued sumatriptan succinate Discontinued Reason: Patient no longer taking take 1 tab at onset of headache; if no relief may repeat 1 tab after at least 2 hrs; max = 4 tabs/24 hr PO 30 days 9 tabs 3RF G43.909 - Migraine, unspecified, not intractable, without status migrainosus
--- OUTSIDE RECORDS SUMMARY | 2025-07-21 18:26 | XMS_ITS | Encounter Summary ---
Author Organization [facility] Address [address] [place] [address] Phone Care Team Providers Care Cellar Worker Name Role Phone July Garcia TIME SIGNAL WIRER Primary Care Provider [phone] Shaila [place] TIME SIGNAL WIRER Primary Care Provider Encounter Details Date Type Department Care Team (Late st Contact Info) Description 10/28/2017 Procedure Pass OR Admitting Dept - Virtual Department [address] [place] [address] Social History Tobacco Use Types Packs/Day Years [...] on filedocumented in this encounter Care Teams Cellar Worker Relationship Specialty Start Date End Date July Garcia NP [address] [place] [address] [place] [address] [email or web address] PCP - General 07/17/17 03/15/18 Shaila [place] NP [address] [place] [id number] [email or web address] PCP - General Family Medicine 03/16/18 documented as of this encounter Additional Source Comments The information contained in this document represents components of the legal health record. It is not the complete legal health record.[facility]
--- OUTSIDE RECORDS SUMMARY | 2025-07-21 18:26 | XMS_ITS | Clinical Summary ---
Author Organization [employer] [facility] ity Address [address] [place] [address] Care Team Providers Care Field Irrigation Worker Name Role Phone Darrell Pang MD Primary Care Provider [phone] Surgical History Surgery Date Site/Laterality Comments APPENDECTOMY 2013 PROCEDURE: HISTORICAL APPENDECTOMY KNEE SURGERY 2008 PROCEDURE: HISTORICAL KNEE SURGERY OTHER SURGICAL HISTORY PROCEDURE: ARTHROSCOPY PROCEDURE NEC OTHER SURGICAL HISTORY 2018 PROCEDURE: HISTORY OTHER BREAST REDUCTION 2017 PROCEDURE: [place] BREAST REDUCTION Medical History Medical History Date [...] 08/28/2022 Social Influencers of Health Screening 08/28/2022 HPV Vaccines (1 - 3-dose SCD M series) 2023 Depression Screening 09/29/2024 COVID-19 Vaccine (1 - 2023-2 5 season) 2025 Influenza Vaccine (#1) 2025 DTaP,Tdap,and Td Vaccines (2 - Td or Tdap) 11/26/2026 11/26/2016 RSV Immunization Adult Patie nts (1 - 1-dose 75+ series) 2071 HIB Vaccines Aged Out No longer eligi [...] RESULTING AGENCY - 01/08/2019 4:50 PM EDT [id number] THINPREP PAP, IMAGED: NEGATIVE FOR SQUAMOUS INTRAEPITHELIAL LESION AND MALIGNANCY . TREVOR GALLO(ASCP) (CASE ELECTRONICALLY SIGNED 01 08 2019) ADEQUACY: SATISFACTORY ENDOCERVICAL/TRANSFORMATION ZONE COMPONENT PRESENT. SOURCE: THINPREP PAP, CERVICAL, IMAGED CLINICAL INFORMATION: POS LGSIL 2017, LMP 12/2017, Z12.4 us Luz Ritter CNM LAB CYTOLOGY ORDERABLES Final R esult HISTORICAL TESTING LAB RESULTING AGENCY from Last 3 Months or Most Recently Relevant to Health Maintenance Care Teams Field Irrigation Worker Relationship Specialty Start Date End Date Darrell Pang MD [address] [place] [address] [address] [facility] LUIS MIGUEL [place] [id number] PCP - General Internal Medicine 01/26/19
--- OUTSIDE RECORDS SUMMARY | 2025-07-21 18:26 | XMS_ITS | Clinical Summary ---
Author Organization [facility] Address [address] [place] [id number] Phone Care Team Providers Care Bunk Assembler Name Role Phone Shaila Miranda APPARATUS REPAIR MECHANIC Primary Care Provider Allergies No known active [...] Medical Devices Not on file Insurance [place] [place] [address] [place] [place] [address] [employer] [place] [address] [place] [address] [place] [place] [address] [place] [address] [place] [address] [place] [address] [place] [address] [employer] Advance Directives For more information, please contact: [phone] (9AM - 5PM [facility], Friday-Friday) * Full Code (Presumed) (Latest Code Status on File) Date Activated Date Inactivated Comments 10/28/2017 10:10 AM 10/28/2017 7:18 PM Care Teams Bunk Assembler Relationship Specialty Start Date End Date Shaila Miranda NP [facility] [address] [place] [id number] [email or web address] PCP - General Family Medicine 03/16/18 Additional Source Comments The information contained in this document represents components of the legal health record. It is not the complete legal health record.[facility]
== END 2025-07-21 15:13 | disposition home or self-care (01) ==
LOC: HO.HMCH 14:36
PROVIDERS: PCP Physician Assistant
DX: G43.009 Migraine without aura, not intractable, without status migrainosus (principal)

== ENCOUNTER → 2025-07-21 14:35 | Outpatient (BNVA) | payer OTHER, SELFPAY | PROVIDERS: PCP Physician Assistant | DX: F41.0 Panic disorder [episodic paroxysmal anxiety] (principal); G43.909 Migraine, unspecified, not intractable, without status migrainosus; K59.00 Constipation, unspecified | CPT/HCPCS: 99212 ==